=== PATIENT | female | born 1970 | race Caucasian/White ===

== ENCOUNTER → 2016-12-21 | Outpatient (CLI) | payer BC ==
--- NOTE | 2016-12-21 15:19 | US ---
EXAMINATION TYPE: US thyroid st tissue head/neck DATE OF EXAM: 12/21/2016 1:58 PM COMPARISON: Previous ultrasound thyroid 26 June 2015 CLINICAL HISTORY: E04.1 SINGLE THYROID NODULE. follow up exam, been on meds for over 20 years GLAND SIZE: Right Lobe: 3.8 x 1.2 x 2.0 cm Overall Parenchyma: heterogenous Left Lobe: 4.0 x 1.0 x 1.6 cm Overall Parenchyma: heterogeneous Isthmus Thickness: 0.3 cm NODULES RIGHT: 2 nodules are seen again on the right which are essentially stable accounting for differences in technique. LEFT: # of nodules measured on left: 0 ISTHMUS: # of nodules measured in the isthmus: 0 TECHNOLOGIST IMPRESSION: Bilateral neck scanned, no abnormal lymphadenopathy noted. The gland is markedly heterogeneous as on previous exam. IMPRESSION: There may be underlying thyroiditis, multinodular goiter essentially stable compared to prior exam
--- NOTE | 2016-12-21 15:21 | US ---
EXAMINATION TYPE: US groin extremity LT DATE OF EXAM: 12/21/2016 2:03 PM COMPARISON: NONE CLINICAL HISTORY: L02.91 CUTANEOUS ABSCESS. Palpable area in upper inner thigh near pant line was fel t by patient. Doctor had put her on antibiotics and size decreased. Patient can still feel it now. No skin changes, no wound at site. Small benign-appearing lymph node is present at the site of patient's palpable abnormality, grayscale , color Doppler imaging performed. TECHNOLOGIST IMPRESSION: Scanned area of palpable and a 0.9cm ovoid superficial lesion noted with pe ripheral blood flow seen, possible lymph node versus other etiology IMPRESSION: Benign ultrasound, no suspicious mass or abnormal fluid collection.
== END | disposition home or self-care (01) ==
LOC: RADUSWWP 13:33
PROVIDERS: ATTEND Family Medicine
DX: E04.2 Nontoxic multinodular goiter (principal); L02.214 Cutaneous abscess of groin
CPT/HCPCS: 76536

== ENCOUNTER → 2017-02-12 | Outpatient (CLI) | payer BC ==
--- NOTE | 2017-02-12 11:45 | MM ---
Reason for exam: follow-up at short interval from prior study. Last mammogram was performed 7 months ago. History: Patient has history of high-risk lesion on a previous biopsy at age 40. Family history of breast cancer in 2 maternal aunts. Cancelled Right US Needle Biopsy of the right breast, February 27, 2010. Benign excisional biopsy of the right breast, 2009. Excisional biopsy of the right breast, 2002. Excisional biopsy of the left breast, 2001. Taking progesterone for 10 months beginning at age 45. Physical Findings: Nurse did not find any significant physical abnormalities on exam. MG 3D Diag Mammo W/Cad TRINI Bilateral CC and MLO view(s) were taken. Prior study comparison: July 07, 2016, left breast MG 3d diag mammo w/cad LT. December 24, 2015, bilateral MG 3d screening mammo w/cad. There are scattered fibroglandular densities. Finding: There are two 10 mm equal density (isodense), oval masses in both breasts. Previous mammotome biopsy in the right and left breast. There is a chronic nodularity bilaterally. Increase in size since July 07, 2016 and December 24, 2015. These results were verbally communicated with the patient and result sheet given to the patient on 02/12/17. ASSESSMENT: Incomplete: need additional imaging evaluation, BI-RAD 0 RECOMMENDATION: Ultrasound of the left breast. (upper inner quadrant)
--- NOTE | 2017-02-12 11:46 | USB ---
Reason for exam: additional evaluation requested from abnormal screening. History: Patient has history of high-risk lesion on a previous biopsy at age 40. Family history of breast cancer in 2 maternal aunts. Cancelled Right US Needle Biopsy of the right breast, February 27, 2010. Benign excisional biopsy of the right breast, 2009. Excisional biopsy of the right breast, 2002. Excisional biopsy of the left breast, 2001. Taking progesterone for 10 months beginning at age 45. US Breast Limited LT Left breast ultrasound demonstrates a 5 x 4 x 7mm oval, mixed, hypoechoic lesion at 10 o'clock, a 10 x 5 x 9mm oval, mixed, hypoechoic lesion at 10 o'clock and a 9 x 7 x 8mm oval, hypoechoic lesion at 11 o'clock, previously biopsied. These results were verbally communicated with the patient and result sheet given to the patient on 02/12/17. ASSESSMENT: Probably benign, BI-RAD 3 RECOMMENDATION: Ultrasound of the left breast in 6 months.
== END ==
LOC: RADMAMWWP 08:21
PROVIDERS: ATTEND Obstetrics & Gynecology
DX: N64.4 Mastodynia (principal); R92.8 Other abnormal and inconclusive findings on diagnostic imaging of breast
CPT/HCPCS: 76642; G0204; G0279

== ENCOUNTER → 2017-08-17 | Outpatient (CLI) | payer BC ==
--- NOTE | 2017-08-18 08:07 | USB ---
Reason for exam: follow-up at short interval from prior study. History: Patient has history of high-risk lesion on a previous biopsy at age 40. Family history of breast cancer in 2 maternal aunts. Cancelled Right US Needle Biopsy of the right breast, February 27, 2010. Benign excisional biopsy of the right breast, 2009. Excisional biopsy of the right breast, 2002. Excisional biopsy of the left breast, 2001. Taking progesterone for 10 months beginning at age 45. Physical Findings: Nurse did not find any significant physical abnormalities on exam. US Breast Limited BILAT Left breast ultrasound includes all four quadrants, the retroareolar region and axilla. Finding demonstrates a 0.6 x 0.4 x 0.6cm oval, solid, hypoechoic lesion at 10 o'clock versus 7 x 4 x 5mm, approximately stable, a 1.3 x 0.7 x 1.2cm oval, solid, hypoechoic lesion at 10 o'clock versus 1.2 x 0.5 x 0.9cm, likely benign and a 0.9 x 0.6 x 0.9cm oval, hypoechoic lesion at 11 o'clock, clip seen, minimally larger, another 6 month follow up recommended. Right breast ultrasound demonstrates a 0.5 x 0.4 x 0.6cm oval, solid, hypoechoic lesion at 9 o'clock versus 2014 it measured 7 x 7 x 6 mm, smaller now, compatible with a benign etiology. These results were verbally communicated with the patient and result sheet given to the patient on 08/17/17. ASSESSMENT: Probably benign, BI-RAD 3 RECOMMENDATION: Follow-up diagnostic mammogram of both breasts in 6 months. Ultrasound of the left breast in 6 months. Back on schedule for annual exam. Left ultrasound for the 10:00 circumscribed mass that is minimally larger.
== END | disposition home or self-care (01) ==
LOC: RADUSWWP 08:56
PROVIDERS: ATTEND Obstetrics & Gynecology
DX: R92.8 Other abnormal and inconclusive findings on diagnostic imaging of breast (principal)

== ENCOUNTER → 2017-12-23 | Outpatient (CLI) | payer BC ==
--- NOTE | 2017-12-23 08:35 | US ---
EXAMINATION TYPE: US thyroid st tissue head/neck DATE OF EXAM: 12/23/2017 COMPARISON: 12/21/2016 CLINICAL HISTORY: E04.1 Thyroid Nodule. GLAND SIZE: Right Lobe: 3.6x1.6x1.2 cm Overall Parenchyma: heterogenous Left Lobe: 3.9x1.6x1.1 cm Overall Parenchyma: heterogeneous Isthmus Thickness: 0.4 cm NODULES RIGHT: # of nodules measured on right: 2 1. 0.9 X 0.6 x 0.6 cm echogenic mixed nodule at the lower pole with well-defined margins. This nod ule is wider than tall and shows intranodular vascularity. Prior size: 1.1 x 0.7 x 0.8 cm 2. 1.1 X 0.8 x 0.9 cm echogenic mixed nodule at the mid pole with well-defined margins. This nodule is wider than tall and shows intranodular vascularity. Prior size: 1.4 x 0.7 x 0.9 cm LEFT: # of nodules measured on left: 0 ISTHMUS: # of nodules measured in the isthmus: 0 Bilateral neck scanned, no evidence of lymphadenopathy. IMPRESSION: 1. Slightly smaller right lobe thyroid nodules compared to previous study
== END | disposition home or self-care (01) ==
LOC: RADUSWWP 08:04
PROVIDERS: ATTEND Family Medicine
DX: E04.2 Nontoxic multinodular goiter (principal)
CPT/HCPCS: 76536

== ENCOUNTER → 2018-02-16 | Outpatient (CLI) | payer BC ==
--- NOTE | 2018-02-16 11:34 | MM ---
Reason for exam: additional evaluation requested from prior study. Last mammogram was performed 1 year ago. History: Patient has history of high-risk lesion on a previous biopsy at age 40. Family history of breast cancer in 2 maternal aunts. Cancelled Right US Needle Biopsy of the right breast, February 27, 2010. Benign excisional biopsy of the right breast, 2009. Excisional biopsy of the right breast, 2002. Excisional biopsy of the left breast, 2001. Taking progesterone for 10 months beginning at age 45. Physical Findings: Nurse Summary: 1.5cm nodule in the right breast at 2 o'clock (nurse mj). MG 3D Diag Mammo W/Cad TRINI Bilateral CC and MLO view(s) were taken. Prior study comparison: February 12, 2017, bilateral MG 3d diag mammo w/cad TRINI. July 07, 2016, left breast MG 3d diag mammo w/cad LT. The breast tissue is heterogeneously dense. This may lower the sensitivity of mammography. Finding #1: There are benign appearing round, oval, circumscribed masses waxing and waning over multiple priors. Finding #2: There are typically benign dystrophic calcifications in the right breast. These results were verbally communicated with the patient and result sheet given to the patient on 02/16/18. ASSESSMENT: Benign, BI-RAD 2 RECOMMENDATION: Routine screening mammogram of both breasts in 1 year.
--- NOTE | 2018-02-16 11:45 | USB ---
Reason for exam: additional evaluation requested from prior study. History: Patient has history of high-risk lesion on a previous biopsy at age 40. Family history of breast cancer in 2 maternal aunts. Cancelled Right US Needle Biopsy of the right breast, February 27, 2010. Benign excisional biopsy of the right breast, 2009. Excisional biopsy of the right breast, 2002. Excisional biopsy of the left breast, 2001. Taking progesterone for 10 months beginning at age 45. US Breast BILAT Right limited breast ultrasound including focal area of concern, retroareolar and axilla demonstrates a 1.0 x 1.1 x 1.2cm irregular, solid, hypoechoic lesion at 1 o'clock, relates to a dystrophic benign calcification. Left complete breast ultrasound includes all four quadrants, the retroareolar region and axilla. Finding demonstrates a 0.7 x 0.5 x 0.3cm oval, solid, hypoechoic, new lesion at 3 o'clock, a 0.6 x 0.7 x 0.3cm solid, hypoechoic, new lesion at 9 o'clock, a 0.6 x 0.5 x 0.3cm oval, solid, hypoechoic lesion at 10 o'clock versus 0.7 x 0.4 x 0.5cm, a 0.6 x 0.5 x 0.4cm solid, hypoechoic lesion at 11 o'clock versus 1.2 x 0.5 x 0.9cm and a 0.9 x 0.9 x 0.6cm oval, solid, hypoechoic lesion at 11 o'clock with clip, previously biopsied. These results were verbally communicated with the patient and result sheet given to the patient on 02/16/18. ASSESSMENT: Probably benign, BI-RAD 3 RECOMMENDATION: Ultrasound of the left breast in 6 months.
== END | disposition home or self-care (01) ==
LOC: RADMAMWWP 08:13
PROVIDERS: ATTEND Family Medicine
DX: R92.8 Other abnormal and inconclusive findings on diagnostic imaging of breast (principal)
CPT/HCPCS: 77062; 77066

== ENCOUNTER 2018-06-25 09:28 | Observation (INO) | payer BC ==
[2018-06-25 09:34] VITALS: RESP 18; TEMP 98.3
[2018-06-25] MEDS ORDERED: ASPIRIN 81 MG PO STA (09:54)
[2018-06-25] MEDS ORDERED: NITROGLYCERIN OINT 1 INCH/GM PACKET TOPICAL STA (09:54)
--- NOTE | 2018-06-25 09:59 | ED ---
General Adult HPI - General Chief complaint: Dizziness Stated complaint: LEFT SHOULDER PAIN, NAUSEA, DIZZY Time Seen by Provider: 06/25/18 09:41 Source: patient, RN notes reviewed Mode of arrival: wheelchair Limitations: no limitations - History of Present Illness Initial comments: Patient is a pleasant 47-year-old female presenting to the emergency department for not feeling well. Onset of symptoms was a couple of hours ago. Patient was at rest. Patient has an ache type discomfort of her left shoulder. Patient does feel lightheaded and nauseated. All symptoms are mild. Patient does feel fatigued. No history of similar symptoms previously. Patient admits upon questioning that there may be some mild ache in her left chest as well. No pain with motion of her arm. No injury. No dyspnea. No vomiting. No diaphoresis. - Related Data Home Medications Medication Instructions Recorded Confirmed ALPRAZolam [Xanax] 0.25 mg PO HS PRN 10/22/14 05/19/15 Advair(Unknown Dose) 1 puff INHALATION DIRECTED PRN 10/22/14 05/19/15 Levothyroxine Sodium [Synthroid] 75 mcg PO DAILY 10/22/14 05/19/15 Levothyroxine Sodium [Synthroid] 200 mcg PO DAILY 10/22/14 05/19/15 Max-Air Inhaler 1 puff INHALATION DIRECTED PRN 10/22/14 05/19/15 Omeprazole [PriLOSEC] 20 mg PO AC-BRKFST 05/19/15 05/19/15 Previous Rx's Medication Instructions Recorded Acetaminophen-Codeine 300-30mg 1 each PO Q6H PRN #20 tablet 05/19/15 [Tylenol #3] Ibuprofen [Motrin] 800 mg PO Q8HR PRN #30 tab 05/19/15 Allergies Allergy/AdvReac Type Severity Reaction Status Date / Time Iodinated Contrast- Oral and AdvReac Severe Anaphylaxis Verified 06/25/18 09:30 IV Dye [Iodinated Contrast Media - IV Dye] cephalexin monohydrate AdvReac Unknown CAUSED Verified 06/25/18 09:30 [From Keflex] "HOLES" ON HER TONGUE latex AdvReac Unknown Swelling Verified 06/25/18 09:30 nifedipine [From Procardia] AdvReac Unknown Rash/Hives Verified 06/25/18 09:30 Penicillins AdvReac Unknown Rash/Hives Verified 06/25/18 09:30 Review of Systems ROS Statement: Those systems with pertinent positive or pertinent negative responses have been documented in the HPI. ROS Other: All systems not noted in ROS Statement are negative. Constitutional: Denies: fever Eyes: Denies: eye pain ENT: Denies: ear pain Respiratory: Denies: cough, dyspnea Cardiovascular: Reports: chest pain Endocrine: Reports: fatigue Gastrointestinal: Reports: nausea. Denies: abdominal pain, vomiting Genitourinary: Denies: dysuria Musculoskeletal: Denies: back pain Skin: Denies: rash Neurological: Denies: weakness Past Medical History Past Medical History: Asthma, Thyroid Disorder Additional Past Medical History / Comment(s): STATES CHECKING FOR COLITIS. History of Any Multi-Drug Resistant Organisms: None Reported Past Surgical History: Appendectomy, Bowel Resection, Breast Surgery, Cholecystectomy, Hysterectomy Additional Past Surgical History / Comment(s): BREAST CYSTS. Past Anesthesia/Blood Transfusion Reactions: Postoperative Nausea & Vomiting ( PONV) Additional Past Anesthesia/Blood Transfusion Reaction / Comment(s): PT ADOPTED. Past Psychological History: No Psychological Hx Reported Smoking Status: Former smoker Past Alcohol Use History: Occasional Past Drug Use History: None Reported - Past Family History Father Additional Family Medical History / Comment(s): PT ADOPTED BUT STATES UNCLE HAD COLON CA AND AUNTS WITH BREAST CA. General Exam Limitations: no limitations General appearance: alert, in no apparent distress Head exam: Present: atraumatic Eye exam: Present: normal appearance, PERRL ENT exam: Present: normal oropharynx Neck exam: Present: normal inspection Respiratory exam: Present: normal lung sounds bilaterally. Absent: chest wall tenderness Cardiovascular Exam: Present: regular rate, normal rhythm, normal heart sounds Expanded Peripheral pulses: 2+: Radial (R), Radial (L), Dorsalis Pedis (R), Dorsalis Pedis (L) GI/Abdominal exam: Present: soft. Absent: tenderness Extremities exam: Present: normal inspection. Absent: pedal edema, calf tenderness Back exam: Present: normal inspection. Absent: tenderness Neurological exam: Present: alert Psychiatric exam: Present: normal affect, normal mood Skin exam: Present: normal color Course Vital Signs 06/25/18 06/25/18 09:30 10:41 Temperature 98.3 F Pulse Rate 86 105 H Respiratory 18 18 Rate Blood Pressure 119/81 116/71 O2 Sat by Pulse 97 99 Oximetry EKG Findings - EKG Comments: EKG Findings:: Normal sinus rhythm 77. WA 1:30. QRS 102. QT 374. QTC 423. Normal axis. Normal QRS. No acute ST change. Medical Decision Making - Medical Decision Making Patient reevaluated and resting comfortably in bed. Symptoms have improved however not completely resolved. Patient updated on results and plan. Case was discussed in detail with Dr. Anderson, covering for Dr. morrissey, who admits for Dr. Sparks. - Lab Data Result diagrams: 06/25/18 10:00 06/25/18 10:00 Lab Results 06/25/18 06/25/18 06/25/18 Range/Units 10:00 10:00 10:00 WBC 7.5 (3.8-10.6) k/uL RBC 4.12 (3.80-5.40) m/uL Hgb 12.1 (11.4-16.0) gm/dL Hct 37.0 (34.0-46.0) % MCV 89.6 (80.0-100.0) fL MCH 29.4 (25.0-35.0) pg MCHC 32.8 (31.0-37.0) g/dL RDW 13.6 (11.5-15.5) % Plt Count 317 (150-450) k/uL Neutrophils % 58 % Lymphocytes % 28 % Monocytes % 6 % Eosinophils % 6 % Basophils % 1 % Neutrophils # 4.4 (1.3-7.7) k/uL Lymphocytes # 2.1 (1.0-4.8) k/uL Monocytes # 0.5 (0-1.0) k/uL Eosinophils # 0.4 (0-0.7) k/uL Basophils # 0.1 (0-0.2) k/uL PT (9.0-12.0) sec INR (<1.2) APTT (22.0-30.0) sec D-Dimer (<0.60) mg/L FEU Sodium 140 (137-145) mmol/L Potassium 4.9 (3.5-5.1) mmol/L Chloride 107 (98-107) mmol/L Carbon Dioxide 22 (22-30) mmol/L Anion Gap 11 mmol/L BUN 11 (7-17) mg/dL Creatinine 0.64 (0.52-1.04) mg/dL Est GFR (CKD-EPI)AfAm >90 (>60 ml/min/1.73 sqM) Est GFR (CKD-EPI)NonAf >90 (>60 ml/min/1.73 sqM) Glucose 134 H (74-99) mg/dL Calcium 9.5 (8.4-10.2) mg/dL Magnesium 1.6 (1.6-2.3) mg/dL Total Bilirubin 0.3 (0.2-1.3) mg/dL AST 27 (14-36) U/L ALT 39 (9-52) U/L Alkaline Phosphatase 66 (38-126) U/L Total Creatine Kinase 66 (30-135) U/L CK-MB (CK-2) 0.5 (0.0-2.4) ng/mL CK-MB (CK-2) Rel Index 0.8 Troponin I <0.012 (0.000-0.034) ng/mL Total Protein 7.0 (6.3-8.2) g/dL Albumin 4.0 (3.5-5.0) g/dL 06/25/18 Range/Units 10:00 WBC (3.8-10.6) k/uL RBC (3.80-5.40) m/uL Hgb (11.4-16.0) gm/dL Hct (34.0-46.0) % MCV (80.0-100.0) fL MCH (25.0-35.0) pg MCHC (31.0-37.0) g/dL RDW (11.5-15.5) % Plt Count (150-450) k/uL Neutrophils % % Lymphocytes % % Monocytes % % Eosinophils % % Basophils % % Neutrophils # (1.3-7.7) k/uL Lymphocytes # (1.0-4.8) k/uL Monocytes # (0-1.0) k/uL Eosinophils # (0-0.7) k/uL Basophils # (0-0.2) k/uL PT 9.8 (9.0-12.0) sec INR 1.0 (<1.2) APTT 24.4 (22.0-30.0) sec D-Dimer 0.29 (<0.60) mg/L FEU Sodium (137-145) mmol/L Potassium (3.5-5.1) mmol/L Chloride (98-107) mmol/L Carbon Dioxide (22-30) mmol/L Anion Gap mmol/L BUN (7-17) mg/dL Creatinine (0.52-1.04) mg/dL Est GFR (CKD-EPI)AfAm (>60 ml/min/1.73 sqM) Est GFR (CKD-EPI)NonAf (>60 ml/min/1.73 sqM) Glucose (74-99) mg/dL Calcium (8.4-10.2) mg/dL Magnesium (1.6-2.3) mg/dL Total Bilirubin (0.2-1.3) mg/dL AST (14-36) U/L ALT (9-52) U/L Alkaline Phosphatase (38-126) U/L Total Creatine Kinase (30-135) U/L CK-MB (CK-2) (0.0-2.4) ng/mL CK-MB (CK-2) Rel Index Troponin I (0.000-0.034) ng/mL Total Protein (6.3-8.2) g/dL Albumin (3.5-5.0) g/dL - Radiology Data Radiology results: image reviewed (Chest x-ray shows no acute process) Disposition Clinical Impression: Chest pain Disposition: ADMITTED IP TO THIS HOSP Is patient prescribed a controlled substance at d/c from ED?: No Referrals: Tyler Sparks MD [Primary Care Provider] - 1-2 days Decision Time: 11:27
[2018-06-25 10:12] LABS: Basophils # (A) 0.1 k/uL (0-0.2); Basophils % (A) 1 %; Eosinophils # (A) 0.4 k/uL (0-0.7); Eosinophils % (A) 6 %; HGB 12.1 gm/dL (11.4-16.0); Lymphocytes # (A) 2.1 k/uL (1.0-4.8); Lymphocytes % (A) 28 %; MCH 29.4 pg (25.0-35.0); MCHC 32.8 g/dL (31.0-37.0); MCV 89.6 fL (80.0-100.0); Mean Platelet Volume 6.9; Monocytes # (A) 0.5 k/uL (0-1.0); Monocytes % (A) 6 %; Neutrophils # (A) 4.4 k/uL (1.3-7.7); Neutrophils % (A) 58 %; Platelet Count 317 k/uL (150-450); RBC 4.12 m/uL (3.80-5.40); RDW 13.6 % (11.5-15.5); WBC 7.5 k/uL (3.8-10.6)
[2018-06-25 10:25] LABS: ALT 39 U/L (9-52); AST 27 U/L (14-36); Alkaline Phosphatase 66 U/L (38-126); Anion Gap 11 mmol/L; Blood Urea Nitrogen 11 mg/dL (7-17); Calcium 9.5 mg/dL (8.4-10.2); Carbon Dioxide 22 mmol/L (22-30); Chloride 107 mmol/L (98-107); Glucose 134 mg/dL (74-99); Magnesium 1.6 mg/dL (1.6-2.3); Potassium 4.9 mmol/L (3.5-5.1); Sodium 140 mmol/L (137-145); Total Bilirubin 0.3 mg/dL (0.2-1.3)
[2018-06-25 10:28] LABS: D-Dimer 0.29 mg/L FEU (<0.60); Partial Thromboplastin Time 24.4 sec (22.0-30.0); Prothrombin Time 9.8 sec (9.0-12.0)
[2018-06-25 10:33] LABS: Creatine Kinase 66 U/L (30-135)
--- NOTE | 2018-06-25 10:34 | XR ---
EXAMINATION TYPE: XR chest 2V DATE OF EXAM: 06/25/2018 HISTORY: Chest Pain. REFERENCE: Previous study dated 05/19/2015. FINDINGS: The lungs are clear. Pleural space are clear. The heart is not enlarged. IMPRESSION: NORMAL CHEST.
[2018-06-25 10:42] VITALS: BP 116/71; PULSE 105
[2018-06-25 10:46] LABS: Creatine Kinase MB 0.5 ng/mL (0.0-2.4); Troponin I <0.012 ng/mL (0.000-0.034)
[2018-06-25] MEDS ORDERED: NITROGLYCERIN SL TABS 0.4 MG TAB SUBLINGUAL PRN (11:28)
[2018-06-25 12:46] VITALS: BMI 30.9
[2018-06-25] MEDS ORDERED: ALPRAZolam 0.25 MG TAB PO PRN (12:46)
[2018-06-25] MEDS ORDERED: ACETAMINOPHEN TAB 325 MG TAB PO PRN (12:46)
--- NOTE | 2018-06-25 12:54 | P.HPIM ---
History of Present Illness H&P Date: 06/25/18 Chief Complaint: Lightheadedness dizziness left shoulder pain chest pressure The patient is a 47-year-old obese female with a past focal history of type 2 diabetes on metformin who presents to the ER via private vehicle with complaints of left shoulder pain, That suddenly began this morning, the patient reports that her and her family in the process of moving and that she is currently under increased stress. The patient also reported mild to moderate chest pressure above the left breast with radiation into the left shoulder, with associated lightheadedness and nausea and diaphoresis. She denies any feelings of palpitations, denies any lower extremity swelling, or shortness of breath denies being a smoker, denies any family history of coronary disease. The patient does report being sort of anxious and stressed out, denies any depressive symptomatology. in the ER the patient was noted to be normal sinus rhythm EKG was sinus mechanism without any suggestion of any acute ischemia, troponins were negative 1. She was given aspirin, nitroglycerin and recommended for admission to rule out ACS Review of Systems Pertinent positive as per HPI, all other review of systems are otherwise negative Past Medical History Past Medical History: Asthma, Thyroid Disorder Additional Past Medical History / Comment(s): STATES CHECKING FOR COLITIS. History of Any Multi-Drug Resistant Organisms: None Reported Past Surgical History: Appendectomy, Bowel Resection, Breast Surgery, Cholecystectomy, Hysterectomy Additional Past Surgical History / Comment(s): BREAST CYSTS. Past Anesthesia/Blood Transfusion Reactions: Postoperative Nausea & Vomiting ( PONV) Additional Past Anesthesia/Blood Transfusion Reaction / Comment(s): PT ADOPTED. Past Psychological History: No Psychological Hx Reported Smoking Status: Former smoker Past Alcohol Use History: Occasional Past Drug Use History: None Reported - Past Family History Father Additional Family Medical History / Comment(s): PT ADOPTED BUT STATES UNCLE HAD COLON CA AND AUNTS WITH BREAST CA. Medications and Allergies Home Medications Medication Instructions Recorded Confirmed Type Aspirin [Adult Low Dose Aspirin EC] 81 mg PO DAILY 06/25/18 06/25/18 History Ibuprofen 600 mg PO Q6H PRN 06/25/18 06/25/18 History Thyroid,Pork [Borup Thyroid] 30 mg PO DAILY 06/25/18 06/25/18 History Thyroid,Pork [Borup Thyroid] 240 mg PO DAILY 06/25/18 06/25/18 History metFORMIN HCL [Glucophage] 500 mg PO QID 06/25/18 06/25/18 History Allergies Allergy/AdvReac Type Severity Reaction Status Date / Time Iodinated Contrast- Oral and AdvReac Severe Anaphylaxis Verified 06/25/18 12:05 IV Dye [Iodinated Contrast Media - IV Dye] cephalexin monohydrate AdvReac Unknown CAUSED Verified 06/25/18 12:05 [From Keflex] "HOLES" ON HER TONGUE latex AdvReac Unknown Swelling Verified 06/25/18 12:05 nifedipine [From Procardia] AdvReac Unknown Rash/Hives Verified 06/25/18 12:05 Penicillins AdvReac Unknown Rash/Hives Verified 06/25/18 12:05 Physical Exam Vitals: Vital Signs Temp Pulse Resp BP Pulse Ox 06/25/18 10:41 105 H 18 116/71 99 06/25/18 09:30 98.3 F 86 18 119/81 97 Intake and Output 06/24/18 06/25/18 06/25/18 22:59 06:59 14:59 Other: Weight 81.647 kg Constitutional: No acute distress, conversant, pleasant Eyes: Anicteric sclerae, moist conjunctiva, no lid-lag, PERRLA ENMT: NC/AT,Oropharynx clear, no erythema, exudates Neck:Supple, FROM, no masses, or JVD, No carotid bruits; No thyromegaly Lungs: Clear to auscultation, Clear to percussion, Normal respiratory effort, no accessory muscle use Cardiovascular: Heart regular in rate and rhythm, No murmurs, gallops, or rubs no peripheral edema Abdominal: Soft Nontender, nom distended, no guarding, no rebound or rigidity, Normoactive bowel sounds No hepatomegaly, No splenomegaly, No palpable mass No abdominal wall hernia noted Skin: Normal temperature, tone, texture, turgor, No induration No subcutaneous nodules, No rash, lesions, No ulcers Extremities:No digital cyanosis No clubbing, Pedal pulses intact and symmetrical Radial pulses intact and symmetrical Normal gait and station, No calf tenderness Psychiatric: Alert and oriented to person, place and time, Appropriate affect Intact judgement Neuro: Muscles Strength 5/5 in all 4 extremities, Sensation to light touch grossly present throughout, Cranial nerves II-XII grossly intact. No focal sensory deficits Results CBC & Chem 7: 06/25/18 10:00 09/15/18 10:00 Labs: Abnormal Lab Results - Last 24 Hours (Table) 06/25/18 Range/Units 10:00 Glucose 134 H (74-99) mg/dL Assessment and Plan (1) Atypical chest pain Current Visit: Yes Status: Acute Code(s): R07.89 - OTHER CHEST PAIN SNOMED Code(s): 229133224 (2) Type 2 diabetes mellitus Current Visit: Yes Status: Acute Code(s): E11.9 - TYPE 2 DIABETES MELLITUS WITHOUT COMPLICATIONS SNOMED Code(s): 59394815 (3) Hypothyroidism Current Visit: Yes Status: Acute Code(s): E03.9 - HYPOTHYROIDISM, UNSPECIFIED SNOMED Code(s): 81712042 (4) Asthma Current Visit: Yes Status: Acute Code(s): J45.909 - UNSPECIFIED ASTHMA, UNCOMPLICATED SNOMED Code(s): 429480769 Plan: Patient is placed on observation anticipated less than 2 midnight stay with atypical chest pain rule out ACS, we'll continue cycle troponins, initial set of troponins and EKG negative for any suggestion of acute ischemia and continue routine chest pain orders , patient initiated on antiplatelet therapy with aspirin. Currently she is hemodynamically stable. Cardiology is been consulted for further recommendations, patient seems have a component of anxiety we'll start Xanax when necessary. Monitor Accuckecs qachs with correctional scale insulin. Continue to follow clinical course.
[2018-06-25] MEDS ORDERED: INSULIN ASPART 100 UNIT/ML 1 ML 10 ML VIAL SQ SCH (17:30)
[2018-06-25] MEDS ORDERED: NITROGLYCERIN OINT 1 INCH/GM PACKET TOPICAL SCH (18:00)
[2018-06-26] MEDS ORDERED: ASPIRIN 325 MG TAB PO SCH (09:00)
[2018-06-27 11:04] LABS: Hemoglobin A1C 6.1 % (4.0-6.0)
== END 2018-06-25 15:05 | disposition left against medical advice (07) ==
LOC: EC 09:28 → 6SEL 11:29
PROVIDERS: ADMIT Family Medicine; ATTEND Family Medicine
DX: R07.89 Other chest pain (principal); M25.512 Pain in left shoulder; R42 Dizziness and giddiness; R61 Generalized hyperhidrosis; R11.0 Nausea; F43.9 Reaction to severe stress, unspecified; R53.83 Other fatigue; E11.9 Type 2 diabetes mellitus without complications; E03.9 Hypothyroidism, unspecified; J45.909 Unspecified asthma, uncomplicated; E66.9 Obesity, unspecified; Z68.30 Body mass index [BMI] 30.0-30.9, adult; Z79.890 Hormone replacement therapy; Z79.84 Long term (current) use of oral hypoglycemic drugs; Z79.82 Long term (current) use of aspirin; Z79.51 Long term (current) use of inhaled steroids; Z79.899 Other long term (current) drug therapy; Z88.0 Allergy status to penicillin; Z88.8 Allergy status to other drugs, medicaments and biological substances; Z88.1 Allergy status to other antibiotic agents; Z91.041 Radiographic dye allergy status; Z91.040 Latex allergy status; Z90.49 Acquired absence of other specified parts of digestive tract; Z90.710 Acquired absence of both cervix and uterus; Z90.89 Acquired absence of other organs; Z87.891 Personal history of nicotine dependence; Z80.3 Family history of malignant neoplasm of breast; Z80.0 Family history of malignant neoplasm of digestive organs
CPT/HCPCS: 99285 ×2; 36415; 93005; 85379; 80053; 82550; 82553; 83735; 84484; 85025; 85610; 85730; 83036; 71046; G0378

== ENCOUNTER → 2018-09-20 | Outpatient (CLI) | payer BC ==
--- NOTE | 2018-09-20 10:56 | MM ---
Reason for exam: follow-up at short interval from prior study. Last mammogram was performed 7 months ago. History: Patient has history of high-risk lesion on a previous biopsy at age 40. Family history of breast cancer in 2 maternal aunts. Cancelled Right US Needle Biopsy of the right breast, February 27, 2010. Benign excisional biopsy of the right breast, 2009. Excisional biopsy of the right breast, 2002. Excisional biopsy of the left breast, 2001. Taking estrogen. Taking progesterone for 10 months beginning at age 45. Physical Findings: Nurse Summary: 1 x 1cm nodule in the right breast at 10 o'clock, a 1.1 x 1.5cm nodule in the right breast at 1 o'clock and a 0.5 x 1cm nodule in the left breast at 12 o'clock (nurse ts). MG 3D Diag Mammo W/Cad TRINI Bilateral CC and MLO view(s) were taken. Prior study comparison: February 16, 2018, bilateral MG 3d diag mammo w/cad TRINI. August 17, 2017, bilateral US breast limited BILAT. February 12, 2017, bilateral MG 3d diag mammo w/cad TRINI. The breast tissue is heterogeneously dense. This may lower the sensitivity of mammography. There is chronic nodularity in the left breast, one posterior inner increased in size. These results were verbally communicated with the patient and result sheet given to the patient on 09/20/18. ASSESSMENT: Incomplete: need additional imaging evaluation, BI-RAD 0 RECOMMENDATION: Ultrasound of both breasts. (bilateral palpables and left mammographic abnormality)
--- NOTE | 2018-09-20 11:01 | USB ---
Reason for exam: follow-up at short interval from prior study. History: Patient has history of high-risk lesion on a previous biopsy at age 40. Family history of breast cancer in 2 maternal aunts. Cancelled Right US Needle Biopsy of the right breast, February 27, 2010. Benign excisional biopsy of the right breast, 2009. Excisional biopsy of the right breast, 2002. Excisional biopsy of the left breast, 2001. Taking estrogen. Taking progesterone for 10 months beginning at age 45. US Breast BILAT Right complete breast ultrasound includes all four quadrants, the retroareolar region and axilla. Finding demonstrates a 7 x 8 x 9mm solid calcifications at 2 o'clock BB and a 6 x 4 x 6mm oval, hypoechoic lesion at 9 o'clock BB. Left complete breast ultrasound includes all four quadrants, the retroareolar region and axilla. Finding demonstrates a 5 x 3 x 3mm hypoechoic lesion at 2 o'clock, a 5 x 2 x 6mm hypoechoic lesion at 9 o'clock, a 15 x 6 x 15mm oval, hypoechoic, vascular lesion at 10 o'clock increased in size, a 7 x 3 x 4mm oval, hypoechoic lesion at 11 o'clock and a 9 x 6 x 7mm oval, hypoechoic lesion at 11 o'clock with clip. These results were verbally communicated with the patient and result sheet given to the patient on 09/20/18. ASSESSMENT: Suspicious, BI-RAD 4 RECOMMENDATION: Ultrasound core biopsy of the left breast. Called Dr. Sparks with mammographic findings and has scheduled an appointment for the patient for 09/26/18 at 10:[address] Agarwal. PRELIMINARY REPORT CALLED AND FAXED TO DR. AGARWAL ON 09/20/18.
== END | disposition home or self-care (01) ==
LOC: RADMAMWWP 08:55
PROVIDERS: ATTEND Family Medicine
DX: R92.8 Other abnormal and inconclusive findings on diagnostic imaging of breast (principal)
CPT/HCPCS: 77062; 77066

== ENCOUNTER 2018-12-25 11:47 | Emergency (ER) | payer BC ==
[2018-12-25 11:52] VITALS: RESP 18
--- NOTE | 2018-12-25 12:11 | ED ---
Extremity Problem HPI - General Chief complaint: Extremity Problem,Nontraumatic Stated complaint: Leg pain Time Seen by Provider: 12/25/18 11:56 Source: patient, RN notes reviewed Mode of arrival: ambulatory Limitations: no limitations - History of Present Illness Initial comments: 48-year-old female presents emergency Department with chief complaint of left leg pain, cramping. Patient states started while sitting at her desk this morning. Patient states she did have her leg and a stretching position. Patient states she noticed that she had a cramp so she tried to walk and off states that she ate some fruit with no relief of symptoms. Patient is concerned about possible DVT she had breast surgery on Wednesday. Patient has no history DVT denies any redness, swelling. She states it's very hard to reproduce his symptoms and her leg. Chest pain or shortness of breath. - Related Data Home Medications Medication Instructions Recorded Confirmed Aspirin [Adult Low Dose Aspirin EC] 81 mg PO DAILY 06/25/18 06/25/18 Ibuprofen 600 mg PO Q6H PRN 06/25/18 06/25/18 Thyroid,Pork [[place] Thyroid] 30 mg PO DAILY 06/25/18 06/25/18 Thyroid,Pork [[place] Thyroid] 240 mg PO DAILY 06/25/18 06/25/18 metFORMIN HCL [Glucophage] 500 mg PO QID 06/25/18 06/25/18 Allergies Allergy/AdvReac Type Severity Reaction Status Date / Time Iodinated Contrast- Oral and AdvReac Severe Anaphylaxis Verified 12/25/18 11:51 IV Dye [Iodinated Contrast Media - IV Dye] cephalexin monohydrate AdvReac Unknown CAUSED Verified 12/25/18 11:51 [From Keflex] "HOLES" ON HER TONGUE latex AdvReac Unknown Swelling Verified 12/25/18 11:51 nifedipine [From Procardia] AdvReac Unknown Rash/Hives Verified 12/25/18 11:51 Penicillins AdvReac Unknown Rash/Hives Verified 12/25/18 11:51 Review of Systems ROS Statement: Those systems with pertinent positive or pertinent negative responses have been documented in the HPI. ROS Other: All systems not noted in ROS Statement are negative. Past Medical History Past Medical History: Asthma, Thyroid Disorder Additional Past Medical History / Comment(s): STATES CHECKING FOR COLITIS. History of Any Multi-Drug Resistant Organisms: None Reported Past Surgical History: Appendectomy, Bowel Resection, Breast Surgery, Cholecystectomy, Hysterectomy Additional Past Surgical History / Comment(s): BREAST CYSTS. Past Anesthesia/Blood Transfusion Reactions: Postoperative Nausea & Vomiting (PONV) Additional Past Anesthesia/Blood Transfusion Reaction / Comment(s): PT ADOPTED. Past Psychological History: No Psychological Hx Reported Smoking Status: Former smoker Past Alcohol Use History: Occasional Past Drug Use History: None Reported - Past Family History Father Additional Family Medical History / Comment(s): PT ADOPTED BUT STATES UNCLE HAD COLON CA AND AUNTS WITH BREAST CA. General Exam Limitations: no limitations General appearance: alert, in no apparent distress Head exam: Present: atraumatic, normocephalic, normal inspection ENT exam: Present: normal exam, normal oropharynx, mucous membranes moist, TM's normal bilaterally Neck exam: Present: normal inspection, full ROM. Absent: tenderness, meningismus, lymphadenopathy Respiratory exam: Present: normal lung sounds bilaterally. Absent: respiratory distress, wheezes, rales, rhonchi, stridor Cardiovascular Exam: Present: regular rate, normal rhythm, normal heart sounds. Absent: systolic murmur, diastolic murmur, rubs, gallop, clicks Extremities exam: Present: other (Lower shunted pulses equal bilaterally posterior tibialis and dorsal pedis. There is no swelling no erythema no tenderness of the calf.) Skin exam: Present: warm, dry, intact, normal color. Absent: rash Course Vital Signs 12/25/18 11:49 Temperature 98 F Pulse Rate 90 Respiratory 18 Rate Blood Pressure 125/85 O2 Sat by Pulse 97 Oximetry Medical Decision Making - Medical Decision Making 48-year-old female presented for left leg pain concern for DVT. Ultrasound was obtained no acute DVT. This seems any more muscle cramps in nature. Patient will be discharged return parameters were discussed. Disposition Clinical Impression: Left leg pain Disposition: HOME SELF-CARE Condition: Stable Instructions (If sedation given, give patient instructions): Leg Pain (ED) Additional Instructions: Please return to the Emergency Department if symptoms worsen or any other concerns. Is patient prescribed a controlled substance at d/c from ED?: No Referrals: Tyler Sparks MD [Primary Care Provider] - 1-2 days Time of Disposition: 13:30
--- NOTE | 2018-12-25 13:24 | US ---
EXAMINATION TYPE: US venous doppler duplex LE LT DATE OF EXAM: 12/25/2018 12:51 PM COMPARISON: NONE CLINICAL HISTORY: Pain. recent breast surgery and now having calf pain on the left, no h/o dvt SIDE PERFORMED: Left TECHNIQUE: The lower extremity deep venous system is examined utilizing real time linear array sonog sara with graded compression, doppler sonography and color-flow sonography. VESSELS IMAGED: External Iliac Vein (EIV) Common Femoral Vein Deep Femoral Vein Greater Saphenous Vein * Femoral Vein Popliteal Vein Small Saphenous Vein * Proximal Calf Veins (* superficial vessels) Left Leg: Appears negative for DVT There is normal flow, compressibility, vascular waveforms. IMPRESSION: No evident deep venous arthrosis at or above the left knee, follow-up as indicated
[2018-12-25 21:03] VITALS: BP 127/78; PULSE 86; TEMP 98.2
== END 2018-12-25 14:05 | disposition home or self-care (01) ==
LOC: EC 11:47
DX: M79.605 Pain in left leg (principal); E07.9 Disorder of thyroid, unspecified; Z87.891 Personal history of nicotine dependence; Z79.82 Long term (current) use of aspirin; Z79.890 Hormone replacement therapy; Z79.84 Long term (current) use of oral hypoglycemic drugs; Z91.041 Radiographic dye allergy status; Z88.1 Allergy status to other antibiotic agents; Z91.040 Latex allergy status; Z88.8 Allergy status to other drugs, medicaments and biological substances; Z88.0 Allergy status to penicillin
CPT/HCPCS: 99283

== ENCOUNTER → 2019-03-22 | Outpatient (CLI) | payer BC ==
--- NOTE | 2019-03-22 16:30 | CT ---
EXAMINATION TYPE: CT abdomen pelvis wo con DATE OF EXAM: 03/22/2019 COMPARISON: Prior CT 04/06/2014 HISTORY: LLQ pain CT DLP: 903 mGycm Automated exposure control for dose reduction was used. TECHNIQUE: Helical acquisition of images from the lung bases through the pelvis. FINDINGS: LUNG BASES: No significant abnormality is appreciated. AORTA: No significant abnormality is appreciated. LIVER/GB: Patient is post cholecystectomy. No evident liver mass or dilated intrahepatic biliary duct PANCREAS: No significant abnormality is seen. SPLEEN: No significant abnormality is seen. ADRENALS: No significant abnormality is seen. KIDNEYS: No significant abnormality is seen. REPRODUCTIVE ORGANS: Uterus and right adnexal structures are not seen. There is an oval soft tissue density on axial image 114 measures approximately 3 cm which is indeterminate. There is intermediate proximity to the sigmoid colon at this level. Residual left ovary couldn't be present, correlate with surgical history, alternatively diverticular abscess without significant inflammatory change could b e present, consider contrast-enhanced exam URINARY BLADDER: No significant abnormality is seen. BOWEL: Patient is post cholecystectomy. FREE AIR: No Free Air is visible. ASCITES: None visible. PELVIC ADENOPATHY: None visualized. RETROPERITONEAL ADENOPATHY: No Retroperitoneal Adenopathy visible. OSSEOUS STRUCTURES: No significant abnormality is seen. IMPRESSION: LACK OF INTRAVENOUS CONTRAST COULD COMPROMISE SENSITIVITY. INDETERMINATE SOFT TISSUE DENSITY IN THE L EFT LOWER QUADRANT DESCRIBED, CONTRAST-ENHANCED EXAM MAY BE OF BENEFIT. FOLLOW-UP SUGGESTED. POSTO P CHANGES.
== END | disposition home or self-care (01) ==
LOC: RADCTMAIN 15:44
PROVIDERS: ATTEND Family Medicine
DX: R10.32 Left lower quadrant pain (principal)
CPT/HCPCS: 74176

== ENCOUNTER 2019-04-01 19:15 | Emergency (ER) | payer BC ==
[2019-04-01 19:24] VITALS: RESP 18; TEMP 98.2
[2019-04-01] MEDS ORDERED: CLOTRIMAZOLE 1% CREAM 15 GM TUBE TOPICAL STA (20:08)
--- NOTE | 2019-04-01 20:11 | ED ---
Female Urogenital HPI - General Chief complaint: Urogenital Stated complaint: painful urination Time Seen by Provider: 04/01/19 19:26 Source: patient Mode of arrival: ambulatory Limitations: no limitations - History of Present Illness Initial comments: 48-year-old female patient presents to the emergency department today with chief complaint of vulvovaginal irritation and swelling. Patient states that she is currently being treated for a yeast infection by her primary care physician. States that she was recently started on a new diabetic medication that does cause yeast infections. Patient states this started as irritation and itching. States that she did take a Diflucan 3 days ago when symptoms started states that over the last 3 days her symptoms have worsened. States she is now having dysuria and frequency of urination. States that the burning sensation is intense and worsens with urination. Denies any vaginal discharge. She denies any fever or chills. Denies any nausea or vomiting. Denies any flank or back pain. Patient denies any recent rash, shortness breath, chest pain, abdominal pain, diarrhea, constipation, back pain, numbness, tingling, dizziness, weakness, headache, visual changes, or any other complaints. - Related Data Home Medications Medication Instructions Recorded Confirmed Aspirin [Adult Low Dose Aspirin EC] 81 mg PO DAILY 06/25/18 06/25/18 Ibuprofen 600 mg PO Q6H PRN 06/25/18 06/25/18 Thyroid,Pork [[place] Thyroid] 30 mg PO DAILY 06/25/18 06/25/18 Thyroid,Pork [[place] Thyroid] 240 mg PO DAILY 06/25/18 06/25/18 metFORMIN HCL [Glucophage] 500 mg PO QID 06/25/18 06/25/18 Previous Rx's Medication Instructions Recorded Phenazopyridine HCl [Pyridium] 100 mg PO TID #9 tab 04/01/19 Allergies Allergy/AdvReac Type Severity Reaction Status Date / Time Iodinated Contrast- Oral and AdvReac Severe Anaphylaxis Verified 04/01/19 19:23 IV Dye [Iodinated Contrast Media - IV Dye] cephalexin monohydrate AdvReac Unknown CAUSED Verified 04/01/19 19:23 [From Keflex] "HOLES" ON HER TONGUE latex AdvReac Unknown Swelling Verified 04/01/19 19:23 nifedipine [From Procardia] AdvReac Unknown Rash/Hives Verified 04/01/19 19:23 Penicillins AdvReac Unknown Rash/Hives Verified 04/01/19 19:23 Review of Systems ROS Statement: Those systems with pertinent positive or pertinent negative responses have been documented in the HPI. ROS Other: All systems not noted in ROS Statement are negative. Past Medical History Past Medical History: Asthma, Diabetes Mellitus, Thyroid Disorder Additional Past Medical History / Comment(s): STATES CHECKING FOR COLITIS. STEGLARTO History of Any Multi-Drug Resistant Organisms: None Reported Past Surgical History: Appendectomy, Bowel Resection, Breast Surgery, Cholecystectomy, Hysterectomy Additional Past Surgical History / Comment(s): BREAST CYSTS. Past Anesthesia/Blood Transfusion Reactions: Postoperative Nausea & Vomiting (PONV) Additional Past Anesthesia/Blood Transfusion Reaction / Comment(s): PT ADOPTED. Past Psychological History: No Psychological Hx Reported Smoking Status: Former smoker Past Alcohol Use History: Occasional Past Drug Use History: None Reported - Past Family History Father Additional Family Medical History / Comment(s): PT ADOPTED BUT STATES UNCLE HAD COLON CA AND AUNTS WITH BREAST CA. General Exam Limitations: no limitations General appearance: alert, in no apparent distress, other (Physical well- developed, well-nourished adult female patient in no acute distress. Vital signs upon presentation To 98.2F, pulse 89, respirations 18, blood pressure 119/83, pulse ox 99% on room air.) Eye exam: Present: normal appearance, PERRL, EOMI. Absent: scleral icterus, conjunctival injection, periorbital swelling ENT exam: Present: normal exam, normal oropharynx, mucous membranes moist Respiratory exam: Present: normal lung sounds bilaterally. Absent: respiratory distress, wheezes, rales, rhonchi, stridor Cardiovascular Exam: Present: regular rate, normal rhythm, normal heart sounds. Absent: systolic murmur, diastolic murmur, rubs, gallop, clicks GI/Abdominal exam: Present: soft, normal bowel sounds. Absent: distended, tenderness, guarding, rebound, rigid External exam: Present: erythema, swelling. Absent: normal external exam, lesions Neurological exam: Present: alert, oriented X3, CN II-XII intact Psychiatric exam: Present: normal affect, normal mood Skin exam: Present: warm, dry, intact, normal color. Absent: rash Course Vital Signs 04/01/19 19:20 Temperature 98.2 F Pulse Rate 89 Respiratory 18 Rate Blood Pressure 119/83 O2 Sat by Pulse 99 Oximetry Medical Decision Making - Medical Decision Making 48-year-old female patient presents to the emergency department today for evaluation of vaginal irritation and swelling. Physical examination did reveal erythema and swelling of the labia minora and labia majora. No discharge noted. Urinalysis was obtained and showed 2+ glucose which is consistent of her use of oral diabetic medication. She is afebrile. No abdominal tenderness. Patient did take Diflucan today. We will add miconazole cream and Pyridium to her regimen. She is instructed to follow-up with her primary care physician for recheck in 1-2 days. Return parameters discussed in detail. She verbalizes understanding and agrees with this plan. - Lab Data Lab Results 04/01/19 Range/Units 19:35 Urine Color Yellow Urine Appearance Clear (Clear) Urine pH 5.0 (5.0-8.0) Ur Specific [place] 1.010 (1.001-1.035) Urine Protein Negative (Negative) Urine Glucose (UA) 2+ H (Negative) Urine Ketones Negative (Negative) Urine Blood Negative (Negative) Urine Nitrite Negative (Negative) Urine Bilirubin Negative (Negative) Urine Urobilinogen <2.0 (<2.0) mg/dL Ur Leukocyte Esterase Negative (Negative) Disposition Clinical Impression: Vulvovaginal candidiasis Disposition: HOME SELF-CARE Condition: Good Instructions (If sedation given, give patient instructions): Yeast Infection (ED) Additional Instructions: Use cream 3 times daily to the affected area. Take Pyridium 3 times a day as needed for burning sensation. Avoid sexual intercourse until all symptoms resolve. Follow-up with the primary care physician for recheck in 1-2 days. Return to the emergency department immediately for any new, worsening, or concerning symptoms. Prescriptions: Phenazopyridine HCl [Pyridium] 100 mg PO TID #9 tab Is patient prescribed a controlled substance at d/c from ED?: No Referrals: Tyler Sparks MD [Primary Care Provider] - 1-2 days Time of Disposition: 20:35
[2019-04-01 20:27] LABS: Color,Urine Yellow
[2019-04-01 20:28] LABS: Appearance,Urine Clear (Clear); Bilirubin,Urine Negative (Negative); Blood,Urine Negative (Negative); Glucose,Urine (UA) 2+ (Negative); Ketones,Urine Negative (Negative); Leukocyte Esterase,Urine Negative (Negative); Nitrite,Urine Negative (Negative); Protein,Urine Negative (Negative); Urobilinogen,Urine <2.0 mg/dL (<2.0)
[2019-04-01] MEDS ORDERED: PHENAZOPYRIDINE 200 MG TAB PO STA (20:34)
[2019-04-01 20:48] VITALS: BP 116/87; PULSE 69
== END 2019-04-01 20:46 | disposition home or self-care (01) ==
LOC: EC 19:15
DX: B37.3 Candidiasis of vulva and vagina (principal); E11.9 Type 2 diabetes mellitus without complications; E07.9 Disorder of thyroid, unspecified; Z87.891 Personal history of nicotine dependence; Z79.82 Long term (current) use of aspirin; Z79.84 Long term (current) use of oral hypoglycemic drugs; Z79.890 Hormone replacement therapy; Z91.041 Radiographic dye allergy status; Z88.1 Allergy status to other antibiotic agents; Z91.040 Latex allergy status; Z88.0 Allergy status to penicillin
CPT/HCPCS: 81003; 99283

== ENCOUNTER 2019-09-17 23:45 | Emergency (ER) | payer BC, OTHER ==
--- NOTE | 2019-09-17 23:58 | ED ---
Chest Pain HPI - General Chief Complaint: Chest Pain Stated Complaint: Chest Pain Time Seen by Provider: 09/17/19 23:58 Source: patient, family Mode of arrival: ambulatory Limitations: no limitations - History of Present Illness Initial Comments: Dileep workman is a 48-year-old female who presents the emergency department today for evaluation of epigastric abdominal pain, discomfort radiating from her epigastrium into her chest. Patient reports this began a couple hours prior to arrival has been persistent since arrival. Patient has a history of cholecystectomy and appendectomy in the past. She has no history of pancreatitis she is not a big drinker. She denies any cardiac history. - Related Data Home Medications Medication Instructions Recorded Confirmed Aspirin [Adult Low Dose Aspirin EC] 81 mg PO DAILY 06/25/18 06/25/18 Ibuprofen 600 mg PO Q6H PRN 06/25/18 06/25/18 Thyroid,Pork [[place] Thyroid] 30 mg PO DAILY 06/25/18 06/25/18 Thyroid,Pork [[place] Thyroid] 240 mg PO DAILY 06/25/18 06/25/18 metFORMIN HCL [Glucophage] 500 mg PO QID 06/25/18 06/25/18 Previous Rx's Medication Instructions Recorded Phenazopyridine HCl [Pyridium] 100 mg PO TID #9 tab 04/01/19 Allergies Allergy/AdvReac Type Severity Reaction Status Date / Time Iodinated Contrast Media AdvReac Severe Anaphylaxis Verified 09/17/19 23:56 [Iodinated Contrast Media - IV Dye] cephalexin monohydrate AdvReac Unknown CAUSED Verified 09/17/19 23:56 [From Keflex] "HOLES" ON HER TONGUE latex AdvReac Unknown Swelling Verified 09/17/19 23:56 nifedipine [From Procardia] AdvReac Unknown Rash/Hives Verified 09/17/19 23:56 Penicillins AdvReac Unknown Rash/Hives Verified 09/17/19 23:56 Review of Systems ROS Statement: Those systems with pertinent positive or pertinent negative responses have been documented in the HPI. ROS Other: All systems not noted in ROS Statement are negative. EKG Findings - EKG Comments: EKG Findings:: EKG was obtained due to complaining of epigastric and chest pain. EKG was obtained at 12:04 AM, rate is 79 rhythm is sinus tach normal axis and normal intervals, MO 134, QRS 100, QTC 435 there are no acute ST elevations or depressions there is no evidence of acute ischemia or infarction. Past Medical History Past Medical History: Asthma, Diabetes Mellitus, Thyroid Disorder Additional Past Medical History / Comment(s): STATES CHECKING FOR COLITIS. STEGLARTO History of Any Multi-Drug Resistant Organisms: None Reported Past Surgical History: Appendectomy, Bowel Resection, Breast Surgery, Cholecystectomy, Hysterectomy Additional Past Surgical History / Comment(s): BREAST CYSTS. Past Anesthesia/Blood Transfusion Reactions: Postoperative Nausea & Vomiting (PONV) Additional Past Anesthesia/Blood Transfusion Reaction / Comment(s): PT ADOPTED. Past Psychological History: Anxiety Smoking Status: Former smoker Past Alcohol Use History: Occasional Past Drug Use History: None Reported - Past Family History Father Additional Family Medical History / Comment(s): PT ADOPTED BUT STATES UNCLE HAD COLON CA AND AUNTS WITH BREAST CA. General Exam - General Exam Comments Initial Comments: Physical Exam GENERAL: Patient is well-developed and well-nourished. Patient is nontoxic and well- hydrated and is in no distress. HENT: Normocephalic, Atraumatic. EYES: PERRL, EOMI PULMONARY: Unlabored respirations. No audible rales rhonchi or wheezing was noted. CARDIOVASCULAR: There is a regular rate and rhythm without any murmurs gallops or rubs. ABDOMEN: Soft and nontender with normal bowel sounds. SKIN: Skin is clear with no lesions or rashes and otherwise unremarkable. : Deferred NEUROLOGIC: Patient is alert and oriented x3. Moving all extremities spontaneously MUSCULOSKELETAL: Normal extremities with adequate strength and full range of motion. No lower extremity swelling or edema. No calf tenderness. PSYCHIATRIC: Normal psychiatric evaluation. Limitations: no limitations Course Vital Signs 09/17/19 09/18/19 09/18/19 23:54 00:30 01:00 Temperature 97.9 F Pulse Rate 91 97 81 Respiratory 20 18 13 Rate Blood Pressure 130/88 137/78 121/79 O2 Sat by Pulse 98 97 98 Oximetry 09/18/19 09/18/19 09/18/19 01:30 02:30 03:00 Temperature Pulse Rate 98 87 81 Respiratory 16 15 12 Rate Blood Pressure 134/79 108/77 108/77 O2 Sat by Pulse 98 Oximetry 09/18/19 03:13 Temperature 98.7 F Pulse Rate Respiratory Rate Blood Pressure O2 Sat by Pulse Oximetry Chest Pain MDM - MDM The patient was seen and evaluated, history is obtained from the patient This is a 48-year-old female presenting with epigastric discomfort and generalized malaise with discomfort radiating into her chest History is not consistent with acute coronary syndrome EKG is nonischemic however chest x-ray and labs will be obtained Labs resulted with no acute abnormalities Is called the patient's room because patient is writhing in pain in the epigast rium and right upper quadrant. Patient reports the pain just acutely worsened, she doesn't feel nauseated she is not vomiting she just uncomfortable. Given the patient's odd complex of symptoms I recommended a CTA to assess the aorta however patient adamantly states that she is severely ALLERGIC to IV needed contrast she will not consent to receiving any type of contrast, she states she will leave the hospital fully try to premedicate her for CT with contrast. I advised the patient we can evaluate the aorta without contrast study and she states that she's not concerned that this is and she does not want to I did give the patient GI cocktail and upon reevaluation she reports her pain is resolved. I discussed with the patient that her pain is likely due to gastritis, her labs are unremarkable given the persistence of her pain prior to arrival at very low suspicion for cardiac etiology there is a negative troponin. Influenza negative. This and patient is requesting discharge home as her symptoms have resolved and she is feeling much better. Patient will follow up with her primary care physician return to the emergency department if needed. Disposition Clinical Impression: Epigastric pain Disposition: HOME SELF-CARE Condition: Stable Instructions (If sedation given, give patient instructions): Chest Pain (ED) Additional Instructions: Follow-up with your primary care doctor this week for reevaluation. I recommend dietary changes, eat smaller meals, avoid fatty or greasy foods. Follow up with gastroenterology for evaluation of epigastric pain. Return to the ER if he have any acute worsening in her condition or develop any new or concerning symptoms. Is patient prescribed a controlled substance at d/c from ED?: No Referrals: Tyler Sparks MD [Primary Care Provider] - 1-2 days
[2019-09-18] MEDS ORDERED: ONDANSETRON 4 MG/2 ML VIAL IVP STA (00:23)
[2019-09-18] MEDS ORDERED: SODIUM CHLORIDE 0.9% 1,000 ML IV STA (00:23)
[2019-09-18] MEDS ORDERED: MORPHINE SULFATE 4 MG/ML SYRINGE IV STA (00:23)
[2019-09-18 00:33] LABS: Basophils # (A) 0.1 k/uL (0-0.2); Basophils % (A) 1 %; Eosinophils # (A) 0.4 k/uL (0-0.7); Eosinophils % (A) 4 %; HCT 37.6 % (34.0-46.0); HGB 12.9 gm/dL (11.4-16.0); Lymphocytes # (A) 3.4 k/uL (1.0-4.8); Lymphocytes % (A) 33 %; MCH 29.3 pg (25.0-35.0); MCHC 34.2 g/dL (31.0-37.0); MCV 85.7 fL (80.0-100.0); Mean Platelet Volume 6.7; Monocytes # (A) 0.7 k/uL (0-1.0); Monocytes % (A) 7 %; Neutrophils # (A) 5.6 k/uL (1.3-7.7); Neutrophils % (A) 54 %; Platelet Count 332 k/uL (150-450); RBC 4.39 m/uL (3.80-5.40); RDW 12.9 % (11.5-15.5); WBC 10.4 k/uL (3.8-10.6)
[2019-09-18 00:43] LABS: ALT 27 U/L (9-52); AST 20 U/L (14-36); African American GFR (CKD) >90 (>60 ml/min/1.73 sqM); Alkaline Phosphatase 93 U/L (38-126); Anion Gap 9 mmol/L; Blood Urea Nitrogen 13 mg/dL (7-17); Calcium 9.5 mg/dL (8.4-10.2); Carbon Dioxide 20 mmol/L (22-30); Chloride 108 mmol/L (98-107); Glucose 151 mg/dL (74-99); Magnesium 1.6 mg/dL (1.6-2.3); Non-African American GFR(CKD) >90 (>60 ml/min/1.73 sqM); Potassium 4.4 mmol/L (3.5-5.1); Sodium 137 mmol/L (137-145); Total Bilirubin 0.2 mg/dL (0.2-1.3); Total Protein 6.9 g/dL (6.3-8.2)
--- NOTE | 2019-09-18 00:46 | XR ---
EXAMINATION TYPE: XR chest 2V DATE OF EXAM: 09/18/2019 COMPARISON: 06/25/2018 HISTORY: Chest pain TECHNIQUE: Frontal and lateral views of the chest are obtained. FINDINGS: Heart and mediastinum are normal. Lungs are clear. Diaphragm is normal. Bony thorax appear s normal. IMPRESSION: Normal chest. No change.
[2019-09-18 00:50] LABS: D-Dimer 0.38 mg/L FEU (<0.60); INR 0.8 (<1.2); Partial Thromboplastin Time 24.4 sec (22.0-30.0); Prothrombin Time 9.4 sec (9.0-12.0)
[2019-09-18] MEDS ORDERED: MAG HYDROX/AL HYDROX/SIMETH 30 ML, HYOSCYAMINE ELIXIR 10 ML, LIDOCAINE VISCOUS 2% 10 ML PO STA ×3 (01:29)
[2019-09-18 03:07] VITALS: BP 108/77; PULSE 81; RESP 12
[2019-09-18 03:14] VITALS: TEMP 98.7
== END 2019-09-18 03:14 | disposition home or self-care (01) ==
LOC: EC 23:45
DX: R10.13 Epigastric pain (principal); R07.9 Chest pain, unspecified; R53.81 Other malaise; E11.9 Type 2 diabetes mellitus without complications; E07.9 Disorder of thyroid, unspecified; Z79.82 Long term (current) use of aspirin; Z79.84 Long term (current) use of oral hypoglycemic drugs; Z79.890 Hormone replacement therapy; Z87.891 Personal history of nicotine dependence; Z88.0 Allergy status to penicillin; Z88.8 Allergy status to other drugs, medicaments and biological substances; Z91.040 Latex allergy status; Z88.1 Allergy status to other antibiotic agents; Z91.041 Radiographic dye allergy status; Z90.49 Acquired absence of other specified parts of digestive tract; Z87.19 Personal history of other diseases of the digestive system; Z98.890 Other specified postprocedural states
CPT/HCPCS: 36415; 93005; 85379; 80053; 83690; 83735; 84484; 85025; 85610; 85730; 87502; 71046; 99285; 96374; 96375; 96361 ×3; J2270; J2405

== ENCOUNTER → 2019-10-09 | Day surgery (SDC) | payer BC ==
[2019-10-06 09:16] VITALS: BMI 30.2
[~2019-10-09] MED LIST: LACTATED RINGERS 1,000 ML IV ONE; LACTATED RINGERS 1,000 ML IV SCH; MIDAZOLAM 2 MG/2 ML VIAL ONE; ONDANSETRON 4 MG/2 ML VIAL IVP ONE; PROPOFOL 10 MG/ML 20 ML VIAL IV ONE; fentaNYL (PF) 50 MCG/ML 2 ML AMP ONE
[2019-10-09 07:13] VITALS: TEMP 98.1
[2019-10-09 07:19] LABS: Glucose,Whole Blood 136 mg/dL (75-99)
--- NOTE | 2019-10-09 08:17 | P.PCN ---
Date of Procedure: 10/09/19 Description of Procedure: Brief history: Patient is a pleasant 49-year-old female presenting for outpatient EGD and colonoscopy for evaluations of symptoms of nausea and blood per rectum. The patient reports episodes of regurgitation and nausea treated with [id number] Tums. The patient also reports intermittent blood per rectum. Previous colonoscopy in 2014 was unremarkable with a normal-appearing colon and terminal ileum. Procedure performed: Esophagogastroduodenoscopy With biopsy Colonoscopy Preoperative diagnosis: Nausea, reflux, blood per rectum, last colonoscopy in 2014 [place] [facility] Procedure: After informed consent was obtained from the patient was brought into the endoscopy unit and IV sedation was administered by anesthesia under continuous monitoring. Initially upper endoscopy was done. The Olympus GF 190 video endoscope was inserted into the mouth and esophagus intubated without any difficulty and was gradually advanced into the stomach and duodenum and carefully examined. The bulb and second part of the duodenum appeared normal, With biopsies taken. The scope was then withdrawn into the stomach adequately insufflated with air and upon careful examination the antrum and body, cardia and fundus appeared normal, Except for some mild scattered erythema in the antrum and body suggestive of mild gastritis with biopsies taken. The scope was then withdrawn into the esophagus. The GE junction was located at 39 cm to the incisors. It appeared regular with no erythema erosions or ulcerations. Rest of the esophagus appeared normal. Patient tolerated the procedure well. At this time the patient continued to remain sedation. Initial digital rectal examination was normal. Olympus CF 190 video colonoscope was then inserted into the rectum and gradually advanced to the cecum without any difficulty. Careful examination was performed as the scope was gradually being withdrawn. The prep was fair, with areas of semisolid stool noted in the colon. The cecum, ascending colon, transverse colon, descending colon, sigmoid colon and rectum a ppeared normal. A few scattered diverticula noted in the sigmoid colon. Retroflexion was performed in the rectum and no lesions were noted, Low-grade internal hemorrhoids. Patient tolerated the procedure well. Impression: 1. Mild gastritis antrum body, biopsied. Biopsies of the duodenum. 2. Mild sigmoid diverticulosis. Low-grade internal hemorrhoids. Recommendations: Findings of this examination were discussed with the patient as well as and her . Okay to resume diet. Okay to resume medications. Follow-up pathology from biopsies. Resume regular screening colonoscopy as previously scheduled for 2024.
[2019-10-09 08:19] VITALS: BP 114/77; PULSE 84; RESP 17
== END ==
LOC: ORWHC2ENDO 06:39
PROVIDERS: ATTEND Internal Medicine
DX: K29.50 Unspecified chronic gastritis without bleeding (principal); K21.9 Gastro-esophageal reflux disease without esophagitis; K57.31 Diverticulosis of large intestine without perforation or abscess with bleeding; K64.8 Other hemorrhoids; J45.909 Unspecified asthma, uncomplicated; E11.9 Type 2 diabetes mellitus without complications; F41.9 Anxiety disorder, unspecified; F32.9 Major depressive disorder, single episode, unspecified; E07.9 Disorder of thyroid, unspecified; E66.9 Obesity, unspecified; Z91.041 Radiographic dye allergy status; Z91.040 Latex allergy status; Z88.1 Allergy status to other antibiotic agents; Z88.0 Allergy status to penicillin; Z87.891 Personal history of nicotine dependence; Z90.49 Acquired absence of other specified parts of digestive tract; Z79.890 Hormone replacement therapy; Z79.84 Long term (current) use of oral hypoglycemic drugs; Z79.899 Other long term (current) drug therapy; Z68.30 Body mass index [BMI] 30.0-30.9, adult; Z80.0 Family history of malignant neoplasm of digestive organs
CPT/HCPCS: 88305; 45378; 43239; J2250; J2405; J3010; J2704

== ENCOUNTER 2020-04-01 19:47 | Emergency (ER) | payer BC, OTHER ==
[2020-04-01 19:59] VITALS: BP 133/94; PULSE 92; RESP 16; TEMP 98.5
--- NOTE | 2020-04-01 20:32 | XR ---
EXAMINATION TYPE: XR wrist complete RT DATE OF EXAM: 04/01/2020 COMPARISON: NONE HISTORY: Wrist pain. Injury. TECHNIQUE: 4 views FINDINGS: Carpal bones are intact. Metacarpals appear intact. Joint spaces are fairly normal. I see n o fracture. Scaphoid appears intact. IMPRESSION: Negative right wrist exam.
--- NOTE | 2020-04-01 20:39 | ED ---
Extremity Problem HPI - General Chief complaint: Extremity Problem,Nontraumatic Stated complaint: Wrist Pain Time Seen by Provider: 04/01/20 19:59 Source: patient Mode of arrival: ambulatory Limitations: no limitations - History of Present Illness Initial comments: 49-year-old female who denies significant past medical history presenting today for chief complaint of right wrist pain. 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 She states that for the past 2 days she has had increasing ventral aspect pain that increases with range of motion. Patient denies a swelling redness denies any fevers. Patient denies experiencing this in the past. Patient states specifically increases wtih flexion/extension. Denies hand, elbow, shoulder pain. Denies history of gout or recent infections. Denies injury, falls or trauma within the last 2-3 months. Patient has no additional complaints. - Related Data Home Medications Medication Instructions Recorded Confirmed metFORMIN HCL [Glucophage] 1,000 mg PO BID 06/25/18 10/06/19 Albuterol Inhaler (Mhu) [Ventolin 1 - 2 puff INHALATION RT-Q6H PRN 10/06/19 10/06/19 Hfa Inhaler] FLUoxetine HCL [PROzac] 10 mg PO DAILY 10/06/19 10/06/19 Thyroid,Pork [Nature-Throid] 260 mg PO DAILY 10/06/19 10/06/19 Allergies Allergy/AdvReac Type Severity Reaction Status Date / Time Iodinated Contrast Media AdvReac Severe Anaphylaxis Verified 04/01/20 19:59 [Iodinated Contrast Media - IV Dye] cephalexin monohydrate AdvReac Unknown CAUSED Verified 04/01/20 19:59 [From Keflex] "HOLES" ON HER TONGUE latex AdvReac Unknown Swelling Verified 04/01/20 19:59 nifedipine [From Procardia] AdvReac Unknown Rash/Hives Verified 04/01/20 19:59 Penicillins AdvReac Unknown Rash/Hives Verified 04/01/20 19:59 Review of Systems ROS Statement: Those systems with pertinent positive or pertinent negative responses have been documented in the HPI. ROS Other: All systems not noted in ROS Statement are negative. Past Medical History Past Medical History: Asthma, Diabetes Mellitus, Thyroid Disorder Additional Past Medical History / Comment(s): STATES CHECKING FOR COLITIS. STEGLARTO History of Any Multi-Drug Resistant Organisms: None Reported Past Surgical History: Appendectomy, Bowel Resection, Breast Surgery, Cholecystectomy, Hysterectomy Additional Past Surgical History / Comment(s): Benign BREAST CYSTS. Past Anesthesia/Blood Transfusion Reactions: Postoperative Nausea & Vomiting (PONV) Additional Past Anesthesia/Blood Transfusion Reaction / Comment(s): PT ADOPTED. Past Psychological History: Anxiety, Depression Smoking Status: Former smoker - Past Family History Father Additional Family Medical History / Comment(s): PT ADOPTED BUT STATES UNCLE HAD COLON CA AND AUNTS WITH BREAST CA. General Exam - General Exam Comments Initial Comments: General: The patient is awake and alert, in no distress Eye: +3 mm pupils are equal, round and reactive to light, extra-ocular movements are intact. No nystagmus. There is normal conjunctiva bilaterally. No signs of icterus. Cardiovascular: There is a regular rate and rhythm. No murmur, rub or gallop is appreciated. Respiratory: Lungs are clear to auscultation, respirations are non-labored, breath sounds are equal. No wheezes, stridor, rales, or rhonchi. Musculoskeletal: Nomral inspection of the wrists b/l Tenderness to application of pressure over the ventral aspect of the wrist no dorsal aspect pain. + phalen, (-) Ev. Normal ROM, no limitations in ROM. Strength 5/5. Sensation intact. Radial pulses equal bilaterally 2+. Neurological: A&O x 3. CN II-XII intact grossly, There are no obvious motor or sensory deficits. Coordination appears grossly intact. Speech is normal. Skin: Skin is warm and dry and no rashes or lesions are noted. Psychiatric: Cooperative, appropriate mood & affect, normal judgment. Limitations: no limitations Course Vital Signs 04/01/20 19:57 Temperature 98.5 F Pulse Rate 92 Respiratory 16 Rate Blood Pressure 133/94 O2 Sat by Pulse 97 Oximetry Medical Decision Making - Medical Decision Making XR (-) for acute process. + Phalens. Tinels sign. Patient is neurovascularly intact and history of over use--typing on computer. I feel this could be a tendonitits vs carpal tunnel syndrome. Discussed importance or rest/f/u and symptomatic treatment. Patient is agreebale to this care plan and discharge at this time. Return parameters were discussed. Disposition Clinical Impression: Wrist pain, Right wrist pain Disposition: HOME SELF-CARE Condition: Good Instructions (If sedation given, give patient instructions): Wrist Injury (ED) Additional Instructions: Please use medication as discussed. Please follow-up with family doctor in the next 2 days. Please return to emergency room if the symptoms increase or worsen or for any other concerns. Is patient prescribed a controlled substance at d/c from ED?: No Referrals: Tyler Sparks MD [Primary Care Provider] - 1-2 days Isaiah Amaral DO [Medical Doctor] - 1-2 days Time of Disposition: 20:39
== END 2020-04-01 20:46 | disposition home or self-care (01) ==
LOC: EC 19:47
DX: M25.531 Pain in right wrist (principal); J45.909 Unspecified asthma, uncomplicated; E11.9 Type 2 diabetes mellitus without complications; E07.9 Disorder of thyroid, unspecified; F32.9 Major depressive disorder, single episode, unspecified; F41.9 Anxiety disorder, unspecified; Z79.84 Long term (current) use of oral hypoglycemic drugs; Z79.899 Other long term (current) drug therapy; Z88.0 Allergy status to penicillin; Z88.1 Allergy status to other antibiotic agents; Z88.8 Allergy status to other drugs, medicaments and biological substances; Z87.891 Personal history of nicotine dependence; Z91.041 Radiographic dye allergy status; Z91.040 Latex allergy status
CPT/HCPCS: 99283

== ENCOUNTER → 2020-06-20 | Outpatient (CLI) | payer BC ==
[2020-06-20 07:54] LABS: Basophils # (A) 0.1 k/uL (0-0.2); Basophils % (A) 1 %; Eosinophils # (A) 0.3 k/uL (0-0.7); Eosinophils % (A) 4 %; HCT 41.9 % (34.0-46.0); HGB 13.8 gm/dL (11.4-16.0); Lymphocytes # (A) 3.3 k/uL (1.0-4.8); Lymphocytes % (A) 40 %; MCH 29.6 pg (25.0-35.0); MCV 89.8 fL (80.0-100.0); Mean Platelet Volume 7.7; Monocytes # (A) 0.5 k/uL (0-1.0); Monocytes % (A) 5 %; Neutrophils # (A) 4.2 k/uL (1.3-7.7); Neutrophils % (A) 49 %; Platelet Count 332 k/uL (150-450); RBC 4.66 m/uL (3.80-5.40); RDW 13.7 % (11.5-15.5); WBC 8.4 k/uL (3.8-10.6)
[2020-06-20 12:40] LABS: T4, Free (Free Thyroxine) 1.1 ng/dL (0.80-1.80)
[2020-06-20 12:42] LABS: Folate, Serum 7.6 ng/mL
[2020-06-20 14:07] LABS: Thyroid Peroxidase Antibodies 5632.2 U/mL (0.0-60.0)
[2020-06-20 14:13] LABS: African American GFR (CKD) 98.9 (60.0-200.0); Albumin 4.6 g/dL (3.80-4.90); Albumin/Globulin Ratio 1.77 (1.60-3.17); Anion Gap 10.2 mmol/L (4.00-12.00); BUN/Creat Ratio 16.25 Ratio (12.00-20.00); C Reactive Protein 0.8 mg/dL (0.0-0.8); Carbon Dioxide 21.8 mmol/L (21.6-31.8); Chol/HDL Ratio 4.07; Globulin 2.6 g/dL (1.6-3.3); Magnesium 1.7 mg/dL (1.5-2.4); Non-African American GFR(CKD) 85.4 (60.0-200.0); Potassium 4.5 mmol/L (3.5-5.5); Total Bilirubin 0.3 mg/dL (0.2-1.2); Total Protein 7.2 g/dL (6.2-8.2)
[2020-06-20 17:46] LABS: Erythrocyte Sedimentation Rate 21 mm/Hr (0-30)
== END | disposition home or self-care (01) ==
LOC: LABWHC1 07:07
PROVIDERS: ATTEND Nurse Practitioner Adult Health
DX: Z00.00 Encounter for general adult medical examination without abnormal findings (principal); E11.9 Type 2 diabetes mellitus without complications; M79.10 Myalgia, unspecified site; E03.9 Hypothyroidism, unspecified
CPT/HCPCS: 36415; 80053; 80061; 82550; 82607; 82746; 83735; 83874; 84439; 84443; 84481; 85025; 85652; 86038; 86140; 86376; 86800

== ENCOUNTER → 2020-07-08 | Outpatient (CLI) | payer BC ==
--- NOTE | 2020-07-09 07:07 | US ---
EXAMINATION TYPE: US thyroid st tissue head/neck DATE OF EXAM: 07/08/2020 COMPARISON: US CLINICAL HISTORY: E04.1 SINGLE THYROID NODULE. F/U previous GLAND SIZE: Right Lobe: 3.8 x 1.8 x 1.0 cm Overall Parenchyma: heterogenous Left Lobe: 3.6 x 1.5 x 1.0 cm Overall Parenchyma: heterogeneous Isthmus Thickness: 0.4 cm NODULES RIGHT: # of nodules measured on right: 1 1. 1.3 X 0.8 x 0.9 cm hypoechoic mixed nodule at the mid pole with well-defined margins; This nodu le is wider than tall and shows intranodular vascularity. Prior size: 1.1 x 0.8 x 0.9 cm Bilateral neck scanned, no evidence of lymphadenopathy. Heterogeneous gland bilaterally, with stable nodule right lobe. IMPRESSION: 1. No significant interval change in the right-sided thyroid nodule. 2. Correlate for thyroiditis.
== END | disposition home or self-care (01) ==
LOC: RADUSWWP 15:48
PROVIDERS: ATTEND Family Medicine
DX: E04.1 Nontoxic single thyroid nodule (principal)
CPT/HCPCS: 76536

== ENCOUNTER → 2021-01-29 | Outpatient (CLI) | payer BC ==
[2021-01-29 14:51] LABS: Basophils # (A) 0.04 X 10*3/uL (0.00-0.10); Basophils % (A) 0.6 %; Eosinophils # (A) 0.25 X 10*3/uL (0.04-0.35); Eosinophils % (A) 3.5 %; HGB 13.9 g/dL (12.0-15.0); Lymphocytes # (A) 2.26 X 10*3/uL (0.90-5.00); Lymphocytes % (A) 31.9 %; MCH 29.3 pg (27.0-32.0); MCHC 33.1 g/dL (32.0-37.0); MCV 88.6 fL (80.0-97.0); Mean Platelet Volume 10.5 fL (9.5-12.2); Monocytes % (A) 8.5 %; Neutrophils # (A) 3.88 X 10*3/uL (1.80-7.70); Neutrophils % (A) 54.8 %; Platelet Count 330 X 10*3/uL (140-440); RBC 4.74 X 10*6/uL (4.10-5.20); RDW 12.6 % (11.5-14.5); WBC 7.08 X 10*3/uL (4.50-10.00)
[2021-01-30 03:14] LABS: ALT 40 U/L (8-44); AST 21 U/L (13-35); African American GFR (CKD) 115.5 (60.0-200.0); Albumin/Globulin Ratio 2.04 (1.60-3.17); Alkaline Phosphatase 99 U/L (41-126); BUN/Creat Ratio 21.43 Ratio (12.00-20.00); Calcium 9.7 mg/dL (8.7-10.3); Carbon Dioxide 19.3 mmol/L (21.6-31.8); Chloride 105 mmol/L (96-109); Chol/HDL Ratio 4.93; Cholesterol 222 mg/dL (0-200); Globulin 2.3 g/dL (1.6-3.3); Glucose 176 mg/dL (70-110); LDL Cholesterol,Calculated 128.6 mg/dL (0.0-131.0); Non-African American GFR(CKD) 99.6 (60.0-200.0); Potassium 4.6 mmol/L (3.5-5.5); Sodium 138 mmol/L (135-145); Total Bilirubin 0.3 mg/dL (0.2-1.2)
== END | disposition home or self-care (01) ==
LOC: LABWHC1 08:31
PROVIDERS: ATTEND Nurse Practitioner Adult Health
DX: E03.9 Hypothyroidism, unspecified (principal); E11.9 Type 2 diabetes mellitus without complications
CPT/HCPCS: 36415; 80053; 80061; 84432; 84439; 84443; 84481; 85025; 86800

== ENCOUNTER 2021-05-20 23:21 | Emergency (ER) | payer BC ==
[2021-05-20 23:30] VITALS: TEMP 97.5
[2021-05-21] MEDS ORDERED: MORPHINE SULFATE 4 MG/ML SYRINGE IV STA (00:05)
[2021-05-21] MEDS ORDERED: KETOROLAC 15 MG/ML 1 ML VIAL IVP STA (00:05)
[2021-05-21] MEDS ORDERED: SODIUM CHLORIDE 0.9% 1,000 ML IV STA (00:05)
--- NOTE | 2021-05-21 00:21 | ED ---
Abdominal Pain HPI - General Chief Complaint: Abdominal Pain Stated Complaint: Abd Pain Time Seen by Provider: 05/20/21 23:34 Source: patient, family, RN notes reviewed, old records reviewed Mode of arrival: ambulatory Limitations: no limitations - History of Present Illness Initial Comments: This is a 48-year-old female DF for evaluation. Patient believes she may have a hernia with significant abdominal pressure she believes that she may have an epi gastric periumbilical hernia. She has no recent other complaints of travel history sick contacts. Patient recently did get Cryo or cold fat burning therapy and thinks it may be related to that but was seen by told she has a hernia. Is having bowel movements he drinking appropriately with no recent significant surgical history. MD Complaint: abdominal pain -: week(s) Location: periumbilical, epigastric, suprapubic Radiation: epigastric, suprapubic Migration to: no migration Severity: moderate Severity scale (1-10): 4 Quality: stabbing Consistency: constant Improves With: nothing Worsens With: nothing Associated Symptoms: nausea, vomiting Treatments Prior to Arrival: other (none) - Related Data Home Medications Medication Instructions Recorded Confirmed metFORMIN HCL [Glucophage] 1,000 mg PO BID 06/25/18 10/06/19 Albuterol Inhaler (Mhu) [Ventolin 1 - 2 puff INHALATION RT-Q6H PRN 10/06/19 10/06/19 Hfa Inhaler] FLUoxetine HCL [PROzac] 10 mg PO DAILY 10/06/19 10/06/19 Thyroid,Pork [Nature-Throid] 260 mg PO DAILY 10/06/19 10/06/19 Allergies Allergy/AdvReac Type Severity Reaction Status Date / Time Iodinated Contrast Media AdvReac Severe Anaphylaxis Verified 05/20/21 23:30 [Iodinated Contrast Media - IV Dye] cephalexin monohydrate AdvReac Unknown CAUSED Verified 05/20/21 23:30 [From Keflex] "HOLES" ON HER TONGUE latex AdvReac Unknown Swelling Verified 05/20/21 23:30 nifedipine [From Procardia] AdvReac Unknown Rash/Hives Verified 05/20/21 23:30 Penicillins AdvReac Unknown Rash/Hives Verified 05/20/21 23:30 Review of Systems ROS Statement: Those systems with pertinent positive or pertinent negative responses have been documented in the HPI. ROS Other: All systems not noted in ROS Statement are negative. Past Medical History Past Medical History: Asthma, Diabetes Mellitus, Thyroid Disorder Additional Past Medical History / Comment(s): STATES CHECKING FOR COLITIS. STEGLARTO History of Any Multi-Drug Resistant Organisms: None Reported Past Surgical History: Appendectomy, Bowel Resection, Breast Surgery, Cholecystectomy, Hysterectomy Additional Past Surgical History / Comment(s): Benign BREAST CYSTS. Past Anesthesia/Blood Transfusion Reactions: Postoperative Nausea & Vomiting (PONV) Additional Past Anesthesia/Blood Transfusion Reaction / Comment(s): PT ADOPTED. Past Psychological History: Anxiety, Depression Smoking Status: Never smoker Past Alcohol Use History: Occasional Past Drug Use History: None Reported - Past Family History Father Additional Family Medical History / Comment(s): PT ADOPTED BUT STATES UNCLE HAD COLON CA AND AUNTS WITH BREAST CA. General Exam Limitations: no limitations General appearance: alert, in no apparent distress Head exam: Present: atraumatic, normocephalic, normal inspection Eye exam: Present: normal appearance, PERRL, EOMI. Absent: scleral icterus, conjunctival injection, periorbital swelling ENT exam: Present: normal exam, mucous membranes moist Neck exam: Present: normal inspection. Absent: tenderness, meningismus, lymphadenopathy Respiratory exam: Present: normal lung sounds bilaterally. Absent: respiratory distress, wheezes, rales, rhonchi, stridor Cardiovascular Exam: Present: regular rate, normal rhythm, normal heart sounds. Absent: systolic murmur, diastolic murmur, rubs, gallop, clicks GI/Abdominal exam: Present: soft, normal bowel sounds. Absent: distended, tenderness, guarding, rebound, rigid Extremities exam: Present: normal inspection, full ROM, normal capillary refill. Absent: tenderness, pedal edema, joint swelling, calf tenderness Back exam: Present: normal inspection Neurological exam: Present: alert, oriented X3, CN II-XII intact Psychiatric exam: Present: normal affect, normal mood Skin exam: Present: warm, dry, intact, normal color. Absent: rash Course Vital Signs 05/20/21 05/21/21 23:26 01:58 Temperature 97.5 F L Pulse Rate 85 70 Respiratory 18 16 Rate Blood Pressure 141/93 110/71 O2 Sat by Pulse 98 98 Oximetry - Reevaluation(s) Reevaluation #1: 05/21/21 Medical record is reviewed Patient symptoms are significantly improved here in the ER Patient is informed and results and questions answered Patient is in no acute distress Medical Decision Making - Medical Decision Making 50 female with nonspecific abdominal pain. CT is negative here labwork is normal patient can be discharged home - Lab Data Result diagrams: 05/21/21 00:16 05/21/21 00:16 Lab Results 05/21/21 05/21/21 05/21/21 Range/Units 00:16 00:16 00:16 WBC 11.4 H (3.8-10.6) k/uL RBC 4.70 (3.80-5.40) m/uL Hgb 15.0 (11.4-16.0) gm/dL Hct 42.6 (34.0-46.0) % MCV 90.7 (80.0-100.0) fL MCH 32.0 (25.0-35.0) pg MCHC 35.3 (31.0-37.0) g/dL RDW 13.4 (11.5-15.5) % Plt Count 309 (150-450) k/uL MPV 8.0 Neutrophils % 58 % Lymphocytes % 31 % Monocytes % 6 % Eosinophils % 3 % Basophils % 1 % Neutrophils # 6.6 (1.3-7.7) k/uL Lymphocytes # 3.5 (1.0-4.8) k/uL Monocytes # 0.7 (0-1.0) k/uL Eosinophils # 0.3 (0-0.7) k/uL Basophils # 0.1 (0-0.2) k/uL Sodium 137 (137-145) mmol/L Potassium 4.6 (3.5-5.1) mmol/L Chloride 102 (98-107) mmol/L Carbon Dioxide 25 (22-30) mmol/L Anion Gap 10 mmol/L BUN 17 (7-17) mg/dL Creatinine 0.98 (0.52-1.04) mg/dL Est GFR (CKD-EPI)AfAm 77 (>60 ml/min/1.73 sqM) Est GFR (CKD-EPI)NonAf 67 (>60 ml/min/1.73 sqM) Glucose 166 H (74-99) mg/dL Plasma Lactic Acid Donovan (0.7-2.0) mmol/L Calcium 10.2 (8.4-10.2) mg/dL Total Bilirubin 0.2 (0.2-1.3) mg/dL AST 21 (14-36) U/L ALT 21 (4-34) U/L Alkaline Phosphatase 111 (38-126) U/L Total Protein 7.9 (6.3-8.2) g/dL Albumin 4.9 (3.5-5.0) g/dL Amylase 62 (30-110) U/L Lipase 75 (23-300) U/L Urine Color Light Yellow Urine Appearance Clear (Clear) Urine pH 5.5 (5.0-8.0) Ur Specific [place] 1.010 (1.001-1.035) Urine Protein Negative (Negative) Urine Glucose (UA) Negative (Negative) Urine Ketones Negative (Negative) Urine Blood Negative (Negative) Urine Nitrite Negative (Negative) Urine Bilirubin Negative (Negative) Urine Urobilinogen <2.0 (<2.0) mg/dL Ur Leukocyte Esterase Negative (Negative) 05/21/21 Range/Units 00:16 WBC (3.8-10.6) k/uL RBC (3.80-5.40) m/uL Hgb (11.4-16.0) gm/dL Hct (34.0-46.0) % MCV (80.0-100.0) fL MCH (25.0-35.0) pg MCHC (31.0-37.0) g/dL RDW (11.5-15.5) % Plt Count (150-450) k/uL MPV Neutrophils % % Lymphocytes % % Monocytes % % Eosinophils % % Basophils % % Neutrophils # (1.3-7.7) k/uL Lymphocytes # (1.0-4.8) k/uL Monocytes # (0-1.0) k/uL Eosinophils # (0-0.7) k/uL Basophils # (0-0.2) k/uL Sodium (137-145) mmol/L Potassium (3.5-5.1) mmol/L Chloride (98-107) mmol/L Carbon Dioxide (22-30) mmol/L Anion Gap mmol/L BUN (7-17) mg/dL Creatinine (0.52-1.04) mg/dL Est GFR (CKD-EPI)AfAm (>60 ml/min/1.73 sqM) Est GFR (CKD-EPI)NonAf (>60 ml/min/1.73 sqM) Glucose (74-99) mg/dL Plasma Lactic Acid Donovan 1.1 (0.7-2.0) mmol/L Calcium (8.4-10.2) mg/dL Total Bilirubin (0.2-1.3) mg/dL AST (14-36) U/L ALT (4-34) U/L Alkaline Phosphatase (38-126) U/L Total Protein (6.3-8.2) g/dL Albumin (3.5-5.0) g/dL Amylase (30-110) U/L Lipase (23-300) U/L Urine Color Urine Appearance (Clear) Urine pH (5.0-8.0) Ur Specific [place] (1.001-1.035) Urine Protein (Negative) Urine Glucose (UA) (Negative) Urine Ketones (Negative) Urine Blood (Negative) Urine Nitrite (Negative) Urine Bilirubin (Negative) Urine Urobilinogen (<2.0) mg/dL Ur Leukocyte Esterase (Negative) - Radiology Data Radiology results: report reviewed (CT head and pelvis is negative for acute disease), image reviewed Disposition Clinical Impression: Abdominal pain Disposition: HOME SELF-CARE Condition: Good Instructions (If sedation given, give patient instructions): Abdominal Pain (ED) Is patient prescribed a controlled substance at d/c from ED?: No Referrals: Tyler Sparks MD [Primary Care Provider] - 1-2 days
[2021-05-21 00:54] LABS: Appearance,Urine Clear (Clear); Bilirubin,Urine Negative (Negative); Blood,Urine Negative (Negative); Color,Urine Light Yellow; Glucose,Urine (UA) Negative (Negative); Ketones,Urine Negative (Negative); Leukocyte Esterase,Urine Negative (Negative); Nitrite,Urine Negative (Negative); PH, Urine 5.5 (5.0-8.0); Protein,Urine Negative (Negative); Urobilinogen,Urine <2.0 mg/dL (<2.0)
[2021-05-21 00:55] LABS: Basophils # (A) 0.1 k/uL (0-0.2); Basophils % (A) 1 %; Eosinophils # (A) 0.3 k/uL (0-0.7); Eosinophils % (A) 3 %; HCT 42.6 % (34.0-46.0); Lymphocytes # (A) 3.5 k/uL (1.0-4.8); Lymphocytes % (A) 31 %; MCHC 35.3 g/dL (31.0-37.0); MCV 90.7 fL (80.0-100.0); Monocytes # (A) 0.7 k/uL (0-1.0); Monocytes % (A) 6 %; Neutrophils # (A) 6.6 k/uL (1.3-7.7); Neutrophils % (A) 58 %; Platelet Count 309 k/uL (150-450); RDW 13.4 % (11.5-15.5); WBC 11.4 k/uL (3.8-10.6)
[2021-05-21 01:10] LABS: Albumin 4.9 g/dL (3.5-5.0); Calcium 10.2 mg/dL (8.4-10.2); Potassium 4.6 mmol/L (3.5-5.1); Total Bilirubin 0.2 mg/dL (0.2-1.3); Total Protein 7.9 g/dL (6.3-8.2)
--- NOTE | 2021-05-21 01:20 | CT ---
EXAMINATION TYPE: CT abdomen pelvis wo con DATE OF EXAM: 05/21/2021 COMPARISON: 03/22/2019 HISTORY: abd pain CT DLP: 770.7 mGycm Automated exposure control for dose reduction was used. Images obtained from the diaphragm to the floor the pelvis with no contrast. Lung bases are clear. There is no pleural effusion. Heart size is normal. There is no pericardial eff usion. Liver spleen stomach pancreas appear intact. The bile ducts are not dilated. There are clips from cho lecystectomy. There is no adrenal mass. Kidneys have normal size and contour. There is no hydronephrosis. Ureters a re not dilated. There is no retroperitoneal adenopathy. There are clips apparently from appendectomy. The bladder distends smoothly. There is no inguinal hernia. There is no free fluid in the pelvis. Th ere is hysterectomy. There is narrowing of L5-S1 disc space. Lumbar vertebra have normal alignment. Posterior elements are intact. The bony pelvis is intact. The hip joints are intact. There is no mesenteric edema. There is no ascites or free air. There is no bowel obstruction. There a re a few scattered large bowel diverticula. There is no diverticulitis. IMPRESSION: Negative CT scan of the abdomen pelvis. There is clearing of the small fluid collection in the latera l left pelvis compared to old exam.
[2021-05-21 01:59] VITALS: BP 110/71; PULSE 70; RESP 16
== END 2021-05-21 01:59 | disposition home or self-care (01) ==
LOC: EC 23:21
DX: R10.13 Epigastric pain (principal); R11.2 Nausea with vomiting, unspecified; J45.909 Unspecified asthma, uncomplicated; E11.9 Type 2 diabetes mellitus without complications; E07.9 Disorder of thyroid, unspecified; Z91.041 Radiographic dye allergy status; Z88.1 Allergy status to other antibiotic agents; Z91.040 Latex allergy status; Z88.0 Allergy status to penicillin; Z79.84 Long term (current) use of oral hypoglycemic drugs; Z79.890 Hormone replacement therapy; Z90.49 Acquired absence of other specified parts of digestive tract
CPT/HCPCS: 99284; 96374; 96375; 96361; 36415; 80053; 82150; 83605; 83690; 85025; 81003; 74176; J2270; J1885

== ENCOUNTER → 2021-06-25 | Outpatient (CLI) | payer BC ==
--- NOTE | 2021-06-25 10:22 | US ---
EXAMINATION TYPE: US abdomen complete DATE OF EXAM: 06/25/2021 COMPARISON: CT 2020, US 2016 CLINICAL HISTORY: K42.9 Umbilical hernia without obstruction or gang. Abdomen pain EXAM MEASUREMENTS: Liver Length: 15.7 cm CBD: 1.0 cm Spleen: 10.4 cm Right Kidney: 11.5 x 5.3 x 5.1 cm Left Kidney: 11.5 x 4.8 x 5.2 cm Pancreas: wnl Liver: 1.2cm hyperechoic lesion right lobe Gallbladder: surgically absent Evidence for sonographic Smith's sign: no CBD: Upper limits of normal Spleen: wnl Right Kidney: wnl Left Kidney: wnl Upper IVC: wnl Abd Aorta: wnl IMPRESSION: 1. Small hyperechoic area within the liver may be a small hemangioma.
== END | disposition home or self-care (01) ==
LOC: RADUSWWP 09:26
PROVIDERS: ATTEND Family Medicine
DX: K42.9 Umbilical hernia without obstruction or gangrene (principal)
CPT/HCPCS: 76700

== ENCOUNTER → 2021-07-30 | Outpatient (CLI) | payer BC | END | disposition home or self-care (01) | LOC: RADMRIMAIN 20:49 | PROVIDERS: ATTEND Nurse Practitioner Adult Health | DX: Z53.9 Procedure and treatment not carried out, unspecified reason (principal) ==

== ENCOUNTER 2021-09-30 07:21 | Day surgery (SDC) | payer BC ==
[~2021-09-30 07:21] MED LIST changes: -LACTATED RINGERS 1,000 ML IV ONE; +LIDOCAINE 1% (10MG/ML) FOR IV START INTRADERMA PRN; -MIDAZOLAM 2 MG/2 ML VIAL ONE; -ONDANSETRON 4 MG/2 ML VIAL IVP ONE; -PROPOFOL 10 MG/ML 20 ML VIAL IV ONE; -fentaNYL (PF) 50 MCG/ML 2 ML AMP ONE
[2021-09-30 08:03] VITALS: TEMP 97.2
[2021-09-30 08:13] LABS: Glucose,Whole Blood 132 mg/dL (75-99)
[2021-09-30] MEDS ORDERED: PROPOFOL 10 MG/ML 20 ML VIAL IV ONE (08:30)
--- NOTE | 2021-09-30 09:05 | P.PCN ---
Date of Procedure: 09/30/21 Procedure(s) Performed: PREOPERATIVE DIAGNOSIS: GERD, abdominal pain, change in bowel habits, hemorrhoidal skin tag POSTOPERATIVE DIAGNOSIS: Mild gastritis, PROCEDURE: 1. EGD with biopsy 2. Colonoscopy with removal of hemorrhoidal skin tag ANESTHESIA: MAC SURGEON: Boy Mcfadden M.D. SPECIMENS: Antrum ENDOSCOPIC PROCEDURE: The patient was on the endoscopy table in the left decubitus position. The Olympus gastroscope was inserted into the oropharynx and passed under direct visualization to the region of the third portion of the duodenum. From that point the scope was slowly withdrawn inspecting all surfaces carefully. There were no neoplastic inflammatory or polypoid lesions throughout the duodenum. The pylorus was widely patent. The stomach was carefully inspected. There was mild gastritis. A biopsy of the antrum took place to rule out H. pylori. Retroflexion revealed a normal hiatus. The esophagus was then carefully examined. There were no neoplastic inflammatory or polypoid lesions throughout the visualized esophagus. The patient was kept on the endoscopy table in the left decubitus position. The Olympus colonoscope was inserted into the anus and passed under direct visualization to the base of the cecum. The appendiceal orifice was visualized. From that point the scope was slowly withdrawn inspecting all surfaces carefully. There were no neoplastic inflammatory or polypoid lesions throughout the cecum, ascending, transverse, descending, sigmoid and rectum. There was no visible diverticulosis noted. Digital rectal examination revealed a prominent external hemorrhoidal skin tag. This was grasped with a hemostat. The base of the hemorrhoidal skin tag was ligated using a 3-0 Vicryl stitch. The tag was then sharply excised and sent to pathology. The patient was taken to the recovery room in stable condition per anesthesia guidelines. RECOMMENDATIONS: Await biopsies results of skin tag. Resume diet. Follow-up colonoscopy in 10 years.
[2021-09-30 09:25] VITALS: BP 111/76; PULSE 78; RESP 16
[2021-09-30] MEDS ORDERED: IV FLUID CONTINUATION 600 ML IV ONE (09:36)
== END 2021-09-30 09:37 | disposition home or self-care (01) ==
LOC: ORWHC2ENDO 07:21
PROVIDERS: ATTEND Surgery
DX: K29.50 Unspecified chronic gastritis without bleeding (principal); K64.4 Residual hemorrhoidal skin tags; E11.9 Type 2 diabetes mellitus without complications; E07.9 Disorder of thyroid, unspecified; J45.909 Unspecified asthma, uncomplicated; F41.9 Anxiety disorder, unspecified; E78.5 Hyperlipidemia, unspecified; F32.A Depression, unspecified; Z90.49 Acquired absence of other specified parts of digestive tract; Z90.710 Acquired absence of both cervix and uterus; Z98.890 Other specified postprocedural states; Z80.3 Family history of malignant neoplasm of breast; Z80.0 Family history of malignant neoplasm of digestive organs; Z87.891 Personal history of nicotine dependence; Z79.890 Hormone replacement therapy; Z79.84 Long term (current) use of oral hypoglycemic drugs; Z79.899 Other long term (current) drug therapy; Z91.048 Other nonmedicinal substance allergy status; Z91.040 Latex allergy status; Z88.0 Allergy status to penicillin; Z88.8 Allergy status to other drugs, medicaments and biological substances; Z88.1 Allergy status to other antibiotic agents; Z91.041 Radiographic dye allergy status
CPT/HCPCS: 88304; 88305; 45378; 43239; J2704

== ENCOUNTER 2022-01-03 01:51 | Emergency (ER) | payer BC ==
[2022-01-03 01:59] VITALS: BP 116/60; PULSE 100; RESP 22; TEMP 98.3
[2022-01-03 02:06] LABS: Glucose,Whole Blood 197 mg/dL (75-99)
== END 2022-01-03 02:08 | disposition left against medical advice (07) ==
LOC: EC 01:51
DX: Z53.21 Procedure and treatment not carried out due to patient leaving prior to being seen by health care provider (principal)
CPT/HCPCS: 36415; 99499

== ENCOUNTER → 2022-06-11 | Outpatient (CLI) | payer BC ==
--- NOTE | 2022-06-11 11:31 | CT ---
EXAMINATION TYPE: CT abdomen pelvis wo con DATE OF EXAM: 06/11/2022 HISTORY: lower abd pain x2 years. Left lower quadrant pain per order. CT DLP: 1040 mGycm. Automated Exposure Control for Dose Reduction was Utilized. TECHNIQUE: CT scan of the abdomen and pelvis is performed without oral or IV contrast. COMPARISON: Prior CT May 21, 2021 and older studies FINDINGS: Within the limitations of a non-contrast study, the following observations are made. LUNG BASES: No significant abnormality is appreciated. LIVER/GB: Cholecystectomy clips are redemonstrated. PANCREAS: No significant abnormality is seen. SPLEEN: No significant abnormality is seen. ADRENALS: No significant abnormality is seen. KIDNEYS: No renal stones or hydronephrosis is seen bilaterally. BOWEL: Slightly suboptimal evaluation without enteric contrast. No suspicious small or large bowel di latation. Single diverticulum sigmoid colon left pelvis coronal image 52 redemonstrated without adjac ent fat stranding. Otherwise no significant colonic diverticula or CT evidence for acute diverticulit is. Surgical sutures from appendectomy at base of cecum are redemonstrated GENITAL ORGANS: Uterus surgically absent or markedly atrophic. Scattered small bilateral pelvic phleb oliths are redemonstrated. LYMPH NODES: No new greater than 1cm abdominal or pelvic lymph nodes are appreciated. OSSEOUS STRUCTURES: Persistent moderate to severe disc space narrowing L5-S1 level. OTHER: No significant additional abnormality is seen. IMPRESSION: No suspicious new or acute findings are evident.
== END | disposition home or self-care (01) ==
LOC: RADCTMAIN 10:47
PROVIDERS: ATTEND Family Medicine
DX: R10.32 Left lower quadrant pain (principal)
CPT/HCPCS: 74176

== ENCOUNTER → 2022-10-19 | Outpatient (CLI) | payer BC ==
[2022-10-19 18:58] LABS: Basophils % (A) 1.3 %; Eosinophils # (A) 0.26 X 10*3/uL (0.04-0.35); Eosinophils % (A) 3.3 %; HCT 42.7 % (37.2-46.3); HGB 13.7 g/dL (12.0-15.0); Immature Grans, Automated 0.8 %; Lymphocytes # (A) 2.56 X 10*3/uL (0.90-5.00); Lymphocytes % (A) 32.6 %; MCH 29.1 pg (27.0-32.0); MCHC 32.1 g/dL (32.0-37.0); MCV 90.9 fL (80.0-97.0); Mean Platelet Volume 10.4 fL (9.5-12.2); Monocytes # (A) 0.47 X 10*3/uL (0.20-1.00); NRBC Per 100 WBC 0 /100 WBCS (0.0-0.0); Neutrophils # (A) 4.41 X 10*3/uL (1.80-7.70); Platelet Count 312 X 10*3/uL (140-440); RDW 12.9 % (11.5-14.5); WBC 7.86 X 10*3/uL (4.50-10.00)
[2022-10-19 19:16] LABS: ALT 20 U/L (8-44); AST 16 U/L (13-35); African American GFR (CKD) 93.3 (60.0-200.0); Albumin 4.9 g/dL (3.8-4.9); Albumin/Globulin Ratio 1.76 (1.60-3.17); Alkaline Phosphatase 103 U/L (41-126); BUN/Creat Ratio 19.76 Ratio (12.00-20.00); Blood Urea Nitrogen 16.3 mg/dL (9.0-27.0); Carbon Dioxide 20.3 mmol/L (20.0-27.5); Chloride 103 mmol/L (96-109); Globulin 2.8 g/dL (1.6-3.3); Glucose 115 mg/dL (70-110); LDL Cholesterol,Calculated 94.3 mg/dL (0.0-131.0); Non-African American GFR(CKD) 80.5 (60.0-200.0); Potassium 5.3 mmol/L (3.5-5.5); Sodium 137 mmol/L (135-145); Total Protein 7.7 g/dL (6.2-8.2)
== END | disposition home or self-care (01) ==
LOC: LABWHC1 11:48
PROVIDERS: ATTEND Family Medicine
DX: Z00.00 Encounter for general adult medical examination without abnormal findings (principal); E03.9 Hypothyroidism, unspecified
CPT/HCPCS: 36415; 80053; 80061; 84439; 84443; 84481; 85025

== ENCOUNTER → 2023-01-20 | Outpatient (CLI) | payer BC ==
--- NOTE | 2023-01-20 12:59 | XR ---
EXAMINATION TYPE: XR chest 2V DATE OF EXAM: 01/20/2023 COMPARISON: 08/19/2019 TECHNIQUE: PA and lateral views submitted. HISTORY: Presurgical FINDINGS: The lungs are clear and there is no pneumothorax, pleural effusion, or focal pneumonia. Heart size normal and no overt failure. Osseous structures intact. Stable calcified granuloma right lower lobe. Surgical clips in the abdomen.. IMPRESSION: 1. No acute process.
[2023-01-20 15:50] LABS: Basophils # (A) 0.17 X 10*3/uL (0.00-0.10); Basophils % (A) 1.9 %; Eosinophils # (A) 0.55 X 10*3/uL (0.04-0.35); Eosinophils % (A) 6.1 %; HCT 42.1 % (37.2-46.3); HGB 13.7 g/dL (12.0-15.0); Immature Grans, Automated 0.6 %; Lymphocytes # (A) 3.28 X 10*3/uL (0.90-5.00); Lymphocytes % (A) 36.4 %; MCH 29.5 pg (27.0-32.0); MCHC 32.5 g/dL (32.0-37.0); MCV 90.7 fL (80.0-97.0); Mean Platelet Volume 10.3 fL (9.5-12.2); Monocytes # (A) 0.51 X 10*3/uL (0.20-1.00); Monocytes % (A) 5.7 %; NRBC Per 100 WBC 0 /100 WBCS (0.0-0.0); Neutrophils # (A) 4.46 X 10*3/uL (1.80-7.70); Neutrophils % (A) 49.3 %; Platelet Count 289 X 10*3/uL (140-440); RBC 4.64 X 10*6/uL (4.10-5.20); RDW 13.5 % (11.5-14.5); WBC 9.02 X 10*3/uL (4.50-10.00)
[2023-01-20 16:06] LABS: INR 0.9 (0.90-1.11); Prothrombin Time 10.2 sec (9.9-11.9)
[2023-01-21 00:25] LABS: African American GFR (CKD) 101.9 (60.0-200.0); Albumin 4.7 g/dL (3.8-4.9); Albumin/Globulin Ratio 1.66 (1.60-3.17); Anion Gap 11.6 mmol/L (10.00-18.00); BUN/Creat Ratio 18.9 Ratio (12.00-20.00); Blood Urea Nitrogen 14.5 mg/dL (9.0-27.0); Calcium 10.5 mg/dL (8.7-10.3); Carbon Dioxide 25.1 mmol/L (20.0-27.5); Globulin 2.9 g/dL (1.6-3.3); Total Bilirubin 0.2 mg/dL (0.30-1.20); Total Protein 7.6 g/dL (6.2-8.2)
== END | disposition home or self-care (01) ==
LOC: LABPAT 12:15
PROVIDERS: ATTEND Orthopaedic Surgery
DX: M23.91 Unspecified internal derangement of right knee (principal)
CPT/HCPCS: 71046; 80053; 85025; 85610; 93005

== ENCOUNTER 2023-02-04 11:20 | Day surgery (SDC) | payer BC ==
--- NOTE | 2023-02-03 13:51 | HP ---
HISTORY AND PHYSICAL DATE OF SCHEDULED SURGERY: 02/04/2023. HISTORY OF PRESENT ILLNESS: Ellie Evans is a 52-year-old patient seen with progressive right knee pain. Options were discussed. She elected to proceed with right knee arthroscopy. Consent was obtained. PAST MEDICAL HISTORY: Hypertension, hyperlipidemia, twz-[id number]-opxsnoaxo diabetes. PAST SURGICAL HISTORY: Appendectomy, breast biopsy, cholecystectomy, and tonsillectomy. DAILY MEDICATIONS: 1. Ibuprofen. 2. Lipitor. 3. Ozempic. 4. Pepcid. 5. Tramadol. ALLERGIES: CT contrast dye, latex, penicillin, Procardia. SOCIAL HISTORY: She denies tobacco use. PHYSICAL EVALUATION OF RIGHT KNEE: Range of motion is 0-130 degrees. Mild effusion. Tenderness to medial joint line. Positive medial Umu's. Ligaments stable. Hip rotation without pain. Distal neurovascular exam is intact. RADIOGRAPHS: Right knee radiographs revealed moderate osteoarthritic change along with a bipartite patella. An MRI of the right knee revealed patella chondromalacia, possible medial meniscal tear. IMPRESSION: 1. Internal derangement of right knee with symptomatic bipartite patella and possible meniscal tear. 2. Hypertension. 3. Puk-mluavql-tkxlvwhyy diabetes. 4. Hypothyroidism. PLAN: Right knee arthroscopy with excision of bipartite patella, debridement. MMODL / IJN: [id number] /
[~2023-02-04 11:20] MED LIST changes: -LIDOCAINE 1% (10MG/ML) FOR IV START INTRADERMA PRN; +ONDANSETRON 4 MG/2 ML VIAL IVP ONE; +fentaNYL (PF) 50 MCG/ML 2 ML AMP IV PRN
[2023-02-04 11:52] LABS: Glucose,Whole Blood 129 mg/dL (70-110)
[2023-02-04] MEDS ORDERED: MIDAZOLAM 2 MG/2 ML VIAL IVP ONE (12:03)
[2023-02-04] MEDS ORDERED: CLINDAMYCIN 600 MG in DEXTROSE 5% IN WATER 50 ML IVPB STA ×2 (12:10)
[2023-02-04] MEDS ORDERED: PROPOFOL 10 MG/ML 20 ML VIAL IV ONE (12:14)
[2023-02-04] MEDS ORDERED: LIDOCAINE 2% INJ 20 MG/ML (2 ML VIAL) ONE (12:14)
[2023-02-04] MEDS ORDERED: MIDAZOLAM 2 MG/2 ML VIAL ONE (12:14)
[2023-02-04] MEDS ORDERED: SUCCINYLCHOLINE CHLORIDE 200 MG/10 ML VIAL IV ONE (12:14)
[2023-02-04] MEDS ORDERED: fentaNYL (PF) 50 MCG/ML 2 ML AMP ONE (12:14)
[2023-02-04] MEDS ORDERED: BUPIVACAINE (PF) 0.25% 30 ML VIAL SQ ONE ×2 (12:38→13:09)
--- NOTE | 2023-02-04 13:32 | P.OP ---
Date of Procedure: 02/04/23 Preoperative Diagnosis: Internal derangement right knee Postoperative Diagnosis: 1. Symptomatic bipartite patella right knee 2. Lateral meniscal tear right knee 3. Reactive synovitis medial, lateral and suprapatellar compartments right knee Procedure(s) Performed: 1. Arthroscopic partial patellectomy right knee 2. Arthroscopic partial lateral meniscectomy right knee 3. Arthroscopic partial synovectomy medial, lateral and suprapatellar compartments right knee Anesthesia: GIACOMOA, local Surgeon: Dominic Del Rosario Estimated Blood Loss (ml): 11 Pathology: none sent Condition: stable Disposition: PACU Indications for Procedure: 52-year-old patient seen with progressive right knee pain to include symptomatic bipartite patella. After treatment options were discussed with her, she elected to proceed with arthroscopy. Operative Findings: See description of procedure Description of Procedure: Patient was taken to the operative suite. Patient underwent a general anesthetic by the department of anesthesia. Patient was given preoperative antibiotics. The right lower extremity was placed in a well-padded arthroscopic leg aragon. The right leg was prepped and draped in the normal sterile orthopedic fashion. A lateral parapatellar and suprapatellar incision was made. Trochars were inserted. Arthroscopy was initiated. Suprapatellar pouch right. The patellofemoral joint appeared revealed diffuse thick reactive synovitis. There was grade chondromalacia central portion of the patella with some small osteochondral flap tears. I did note a bipartite patella along the superior lateral corner of the patella. I introduced a probe to the area and noted that it was unstable. The scope was guided into the medial gutter. No loose bodies or plica were identified. The scope was then guided into the medial com partment. A medial parapatellar incision was made. Trocar inserted followed by probe. The medial meniscus was probed and was found to be stable. There was no significant chondromalacia. There was some reactive synovitis anteriorly. I introduced a motorized shaver and I performed a partial synovectomy. Shaver was removed. There was good decompression of the synovitis. Scope and probe were then guided into the intercondylar notch. Cruciates were identified, probed and found to be stable. The scope and probe were then guided into lateral compartment. There was a small radial tear midbody lateral meniscus. There was no chondromalacia present. There was some thick reactive synovitis anteriorly. I performed a partial lateral meniscectomy. I performed a partial synovectomy. The residual meniscus was stable. There was good decompression of the synovitis. The scope was in guided back into the suprapatellar compartment. I introduced a motorized shaver into the suprapatellar compartment. I performed a chondroplasty of patella. I performed a partial synovectomy. Shaver was removed. I now created an solar sales assessor portal site along the lateral aspect of the patella. I introduced a motorized bur. I now performed a partial patellectomy knee excising that unstable superior lateral patellar fragment. I now probed the area and noted fairly good excision of that unstable bipartite patella. I now took one more look around the entire knee, no residual debris. Instruments were now removed from the joint. The joint was infiltrated with .25% Marcaine. Steri-Strips were applied to the portal sites. Sterile dressings were applied. The patient was placed into a LEV hose. No tourniquet was utilized. The patient was awakened, transferred to a bed and taken to recovery stable satisfactory condition.
[2023-02-04 13:36] VITALS: TEMP 97.1
[2023-02-04] MEDS: HYDROmorphone 0.5 MG/0.5 ML SYRINGE IVP PRN ×2 (13:41→13:57)
[2023-02-04 13:52] LABS: Glucose,Whole Blood 100 mg/dL (70-110)
[2023-02-04] MEDS ORDERED: ONDANSETRON 4 MG/2 ML VIAL ONE (14:55)
[2023-02-04] MEDS ORDERED: ONDANSETRON 4 MG/2 ML VIAL IVP ONE (14:57)
[2023-02-04 15:03] VITALS: RESP 20
[2023-02-04] MEDS ORDERED: LACTATED RINGERS 1,000 ML IV ONE (15:08)
[2023-02-04] MEDS ORDERED: HYDROcodone/APAP 5-325MG 1 EACH TAB ONE (15:13)
[2023-02-04 15:48] VITALS: BP 122/79; PULSE 88
== END 2023-02-04 15:56 | disposition home or self-care (01) ==
LOC: OR 11:20
PROVIDERS: ATTEND Orthopaedic Surgery
DX: M23.91 Unspecified internal derangement of right knee (principal); Q74.1 Congenital malformation of knee; S83.281A Other tear of lateral meniscus, current injury, right knee, initial encounter; M65.9 Synovitis and tenosynovitis, unspecified; I10 Essential (primary) hypertension; E78.5 Hyperlipidemia, unspecified; E11.9 Type 2 diabetes mellitus without complications; Z90.49 Acquired absence of other specified parts of digestive tract; Z90.89 Acquired absence of other organs; Z79.899 Other long term (current) drug therapy; Z88.0 Allergy status to penicillin; Z91.040 Latex allergy status; Z91.041 Radiographic dye allergy status; Z88.8 Allergy status to other drugs, medicaments and biological substances
CPT/HCPCS: 29881; J2250; J0330; J2405; J3010; J2704; J1170; J1790; J2001

== ENCOUNTER 2023-02-06 20:36 | Emergency (ER) | payer BC ==
[2023-02-06 20:48] VITALS: RESP 16
--- NOTE | 2023-02-06 21:42 | US ---
EXAMINATION TYPE: US venous doppler duplex LE RT DATE OF EXAM: 02/06/2023 9:34 PM COMPARISON: NONE CLINICAL INDICATION: Female, 52 years old with history of lower leg swelling after knee surgery; pain post op knee surgery SIDE PERFORMED: Right TECHNIQUE: The lower extremity deep venous system is examined utilizing real time linear array sonog sara with graded compression, doppler sonography and color-flow sonography. VESSELS IMAGED: Common Femoral Vein Deep Femoral Vein Greater Saphenous Vein * Femoral Vein Popliteal Vein Small Saphenous Vein * Proximal Calf Veins (* superficial vessels) Right Leg: Negative for DVT IMPRESSION: Grayscale, color doppler, spectral doppler imaging performed of the deep veins of the lo wer extremities. There is normal flow, compressibility, vascular waveforms.
--- NOTE | 2023-02-06 21:46 | ED ---
Extremity Problem HPI - General Chief complaint: Extremity Problem,Nontraumatic Stated complaint: PO Surgery, Mass on leg Time Seen by Provider: 02/06/23 20:50 Source: patient Mode of arrival: ambulatory Limitations: no limitations - History of Present Illness Initial comments: Patient is a 52 year old female who presents for swelling in right lower leg. Patient had a right knee arthroscope on Wednesday with partial colectomy, partial lateral meniscectomy, partial synovectomy performed by Dr. Mcneill. The surgery went well pain has been tolerable. Yesterday night patient noticed increased swelling to her right lower leg just below the knee. Patient concerned with the swelling. She denies fever, chills, nausea, vomiting. No history of DVT or PE. She is on baby aspirin otherwise no blood thinner use. - Related Data Home Medications Medication Instructions Recorded Confirmed Albuterol Inhaler [Ventolin Hfa 1 - 2 puff INHALATION RT-Q6H PRN 10/06/19 02/04/23 Inhaler] Atorvastatin [Lipitor] 20 mg PO DAILY 09/26/21 02/04/23 Famotidine [Pepcid] 20 mg PO DAILY 09/26/21 02/04/23 Levothyroxine Sodium [Tirosint] 150 mcg PO HS 09/26/21 02/04/23 Linaclotide [Linzess] 1 tab PO DAILY PRN 02/01/23 02/04/23 Semaglutide [Ozempic] 2 mg SQ DUPONT 02/01/23 02/04/23 Previous Rx's Medication Instructions Recorded HYDROcodone/APAP 5-325MG [[place] 1 tab PO Q6HR PRN #12 tab 02/04/23 5-325] Allergies Allergy/AdvReac Type Severity Reaction Status Date / Time Iodinated Contrast Media AdvReac Severe Anaphylaxis Verified 02/06/23 20:45 [Iodinated Contrast Media - IV Dye] cephalexin monohydrate AdvReac Unknown CAUSED Verified 02/06/23 20:45 [From Keflex] "HOLES" ON HER TONGUE latex AdvReac Unknown Swelling Verified 02/06/23 20:45 of mouth and throat nifedipine [From Procardia] AdvReac Unknown Rash/Hives Verified 02/06/23 20:45 Penicillins AdvReac Unknown Rash/Hives Verified 02/06/23 20:45 Review of Systems ROS Statement: Those systems with pertinent positive or pertinent negative responses have been documented in the HPI. ROS Other: All systems not noted in ROS Statement are negative. Past Medical History Past Medical History: Asthma, Diabetes Mellitus, Hyperlipidemia, Thyroid Disorder Additional Past Medical History / Comment(s): blood in stool, pain rt side of abdomen, hx bowel obstruction, diverticulitis, History of Any Multi-Drug Resistant Organisms: None Reported Past Surgical History: Appendectomy, Bladder Surgery, Breast Surgery, Cholecystectomy, Hysterectomy, Orthopedic Surgery Additional Past Surgical History / Comment(s): BREAST CYSTS. bowel surgery for obstruction Past Anesthesia/Blood Transfusion Reactions: Postoperative Nausea & Vomiting (PONV) Additional Past Anesthesia/Blood Transfusion Reaction / Comment(s): PT ADOPTED. Past Psychological History: No Psychological Hx Reported Smoking Status: Former smoker Past Alcohol Use History: None Reported Past Drug Use History: None Reported - Past Family History Father Family Medical History: Unable to Obtain Additional Family Medical History / Comment(s): PT ADOPTED BUT STATES UNCLE HAD COLON CA AND AUNTS WITH BREAST CA. General Exam Limitations: no limitations General appearance: alert, in no apparent distress Head exam: Present: atraumatic, normocephalic, normal inspection Eye exam: Present: normal appearance, PERRL, EOMI. Absent: scleral icterus, conjunctival injection, periorbital swelling Respiratory exam: Present: normal lung sounds bilaterally. Absent: respiratory distress, wheezes, rales, rhonchi, stridor Cardiovascular Exam: Present: regular rate, normal rhythm, normal heart sounds. Absent: systolic murmur, diastolic murmur, rubs, gallop, clicks Extremities exam: Present: other (right knee surgical incisions visualized without surrounding erythema, swelling, drainage. 3 by 2 cm hematoma to proximal aguilar just below knee.Mild edema of calf, no calf tenderness. DP 2+. Sensation intact. Full ROM ) Neurological exam: Present: alert, oriented X3, CN II-XII intact Psychiatric exam: Present: normal affect, normal mood Skin exam: Present: warm, dry, intact, normal color. Absent: rash Course Vital Signs 02/06/23 02/06/23 20:45 21:58 Temperature 98.6 F 98.0 F Pulse Rate 78 87 Respiratory 16 16 Rate Blood Pressure 106/71 111/75 O2 Sat by Pulse 97 97 Oximetry Medical Decision Making - Medical Decision Making Was pt. sent in by a medical professional or institution (WILLIAM Keita, CELL EFFICIENCY SUPERVISOR, urgent care, hospital, or correction...) When possible be specific @ -No Did you speak to anyone other than the patient for history (EMS, parent, family, police, friend...)? What history was obtained from this source @ -No Did you review nursing and triage notes (agree or disagree)? Why? @ -I reviewed and agree with nursing and triage notes Were old charts reviewed (outside hosp., previous admission, EMS record, old EKG, old radiological studies, urgent care reports/EKG's, correction records)? Report findings @ -No old charts were reviewed Differential Diagnosis (chest pain, altered mental status, abdominal pain women, abdominal pain men, vaginal bleeding, weakness, fever, dyspnea, syncope, headache, dizziness, GI bleed, back pain, seizure, CVA, palpatations, mental health)? @ -hematoma, DVT, surgical infection, abscess. This list is not meant to be all inclusive EKG interpreted by me (3pts min.). @ -As above X-rays interpreted by me (1pt min.). @ -None done CT interpreted by me (1pt min.). @ -None done U/S interpreted by me (1pt. min.). @ -No. Report negative for DVT What testing was considered but not performed or refused? (CT, X-rays, U/S, labs)? Why? @ -None What meds were considered but not given or refused? Why? @ -None Did you discuss the management of the patient with other professionals (professionals i.e. WILLIAM Keita, CELL EFFICIENCY SUPERVISOR, lab, RT, psych nurse, transition social worker, obedience trainer, teacher, fire information officer, patient case manager)? Give summary @ -No Was smoking cessation discussed for >3mins.? @ -No Was critical care preformed (if so, how long)? @ -No Were there social determinants of health that impacted care today? How? ( Homelessness, low income, unemployed, alcoholism, drug addiction, transportation, low edu. Level, literacy, decrease access to med. care, custodial, rehab)? @ -No Was there de-escalation of care discussed even if they declined (Discuss DNR or withdrawal of care, Hospice)? DNR status @ -No What co-morbidities impacted this encounter? (DM, HTN, Smoking, COPD, CAD, Cancer, CVA, ARF, Chemo, Hep., AIDS, mental health diagnosis, sleep apnea, morbid obesity)? @ -None Was patient admitted / discharged? Hospital course, mention meds given and route, prescriptions, significant lab abnormalities, going to OR and other pertinent info. @ -Patient presenting with small hematoma after right knee surgery. Patient does have some mild calf swelling DVT was ruled out on ultrasound. The hematoma was wrapped in sylvie bandage we discussed ice and elevation at home. Patient discharged she will follow up with Dr. Mcneill. Undiagnosed new problem with uncertain prognosis? @ -No Drug Therapy requiring intensive monitoring for toxicity (Heparin, Nitro, Insulin, Cardizem)? @ -No Were any procedures done? @ -[No] Diagnosis/symptom? @ -hematoma Acute, or Chronic, or Acute on Chronic? @ -acute Uncomplicated (without systemic symptoms) or Complicated (systemic symptoms)? @ -uncomplicated Side effects of treatment? @ -[No] Exacerbation, Progression, or Severe Exacerbation? @ -[No] Poses a threat to life or bodily function? How? (Chest pain, [place], [place], pneumonia, PE, COPD, DKA, ARF, appy, cholecystitis, CVA, Diverticulitis, Homicidal, Suicidal, threat to staff... and all critical care pts) @ -[No] Dr. Toussaint is my attending Disposition Clinical Impression: Hematoma Disposition: HOME SELF-CARE Condition: Good Instructions (If sedation given, give patient instructions): Hematoma (ED) Additional Instructions: Elevate extremity. Apply cold compress and keep sylvie bandage on until improvement of symptoms. Follow up with credit operations specialist in 1-2 days. Return to the emergency department if you experience new, worsening, or concerning symptoms. Is patient prescribed a controlled substance at d/c from ED?: No Referrals: Tyler Sparks MD [Primary Care Provider] - 1-2 days
[2023-02-06 22:03] VITALS: BP 111/75; PULSE 87; TEMP 98
== END 2023-02-06 22:02 | disposition home or self-care (01) ==
LOC: EC 20:36
DX: L76.32 Postprocedural hematoma of skin and subcutaneous tissue following other procedure (principal); E11.9 Type 2 diabetes mellitus without complications; J45.909 Unspecified asthma, uncomplicated; E78.5 Hyperlipidemia, unspecified; E07.9 Disorder of thyroid, unspecified; Z87.891 Personal history of nicotine dependence; Z88.0 Allergy status to penicillin; Z88.1 Allergy status to other antibiotic agents; Z91.040 Latex allergy status; Z91.041 Radiographic dye allergy status; Z88.8 Allergy status to other drugs, medicaments and biological substances; Z79.890 Hormone replacement therapy; Z79.84 Long term (current) use of oral hypoglycemic drugs; Z79.899 Other long term (current) drug therapy
CPT/HCPCS: 99284

== ENCOUNTER 2023-05-22 08:06 | Emergency (ER) | payer BC ==
[2023-05-22] MEDS ORDERED: SODIUM CHLORIDE 0.9% 1,000 ML IV STA (08:23)
[2023-05-22] MEDS ORDERED: SODIUM CHLORIDE 0.9% 500 ML 500 ML IV STA (08:23)
--- NOTE | 2023-05-22 08:27 | ED ---
Abdominal Pain HPI - General Chief Complaint: Abdominal Pain Stated Complaint: abd/back pain Time Seen by Provider: 05/22/23 08:19 Source: patient, RN notes reviewed Mode of arrival: ambulatory Limitations: no limitations - History of Present Illness Initial Comments: This a 52-year-old female presents emergency Department chief complaint of abdominal pain. Patient states has been present for last 4-5 days. Patient's felt like she had a urinary tract infection so she presents to the urgent care who ran a urinalysis with no acute findings. Patient was given Zofran and sent emergency Department for further evaluation. She does not that she's had multiple surgeries including resection, appendectomy, hysterectomy and bladder sling. Patient states that she's had bowel obstruction has. Patient states that she usually is constipated and has not had a bowel movement 2 days. She admits to nausea without vomiting reported chills by , no reported fever. Denies chest pain shortness breath. Patient states that she has some lower back discomfort. - Related Data Home Medications Medication Instructions Recorded Confirmed Albuterol Inhaler [Ventolin Hfa 1 - 2 puff INHALATION RT-Q6H PRN 10/06/1902/04 Inhaler] Atorvastatin [Lipitor] 20 mg PO DAILY 09/26/21 02/04/23 Famotidine [Pepcid] 20 mg PO DAILY 09/26/21 02/04/23 Levothyroxine Sodium [Tirosint] 150 mcg PO HS 09/26/21 02/04/23 Linaclotide [Linzess] 1 tab PO DAILY PRN 02/01/23 02/04/23 Semaglutide [Ozempic] 2 mg SQ DUPONT 02/01/23 02/04/23 Previous Rx's Medication Instructions Recorded HYDROcodone/APAP 5-325MG [[place] 1 tab PO Q6HR PRN #12 tab 02/04/23 5-325] Dicyclomine [Bentyl] 20 mg PO TID #30 tablet 05/22/23 Ondansetron Odt [Zofran Odt] 4 mg PO Q8HR PRN #10 tab 05/22/23 Allergies Allergy/AdvReac Type Severity Reaction Status Date / Time Iodinated Contrast Media AdvReac Severe Anaphylaxis Verified 05/22/23 08:14 [Iodinated Contrast Media - IV Dye] cephalexin monohydrate AdvReac Unknown CAUSED Verified 05/22/23 08:14 [From Keflex] "HOLES" ON HER TONGUE latex AdvReac Unknown Swelling Verified 05/22/23 08:14 of mouth and throat nifedipine [From Procardia] AdvReac Unknown Rash/Hives Verified 05/22/23 08:14 Penicillins AdvReac Unknown Rash/Hives Verified 05/22/23 08:14 Review of Systems ROS Statement: Those systems with pertinent positive or pertinent negative responses have been documented in the HPI. ROS Other: All systems not noted in ROS Statement are negative. Past Medical History Past Medical History: Asthma, Diabetes Mellitus, Hyperlipidemia, Thyroid Disorder Additional Past Medical History / Comment(s): blood in stool, pain rt side of abdomen, hx bowel obstruction, diverticulitis, History of Any Multi-Drug Resistant Organisms: None Reported Past Surgical History: Appendectomy, Bladder Surgery, Breast Surgery, Cholecystectomy, Hysterectomy, Orthopedic Surgery Additional Past Surgical History / Comment(s): BREAST CYSTS. bowel surgery for obstruction Past Anesthesia/Blood Transfusion Reactions: Postoperative Nausea & Vomiting (PONV) Additional Past Anesthesia/Blood Transfusion Reaction / Comment(s): PT ADOPTED. Past Psychological History: No Psychological Hx Reported Smoking Status: Former smoker Past Alcohol Use History: None Reported Past Drug Use History: None Reported - Past Family History Father Family Medical History: Unable to Obtain Additional Family Medical History / Comment(s): PT ADOPTED BUT STATES UNCLE HAD COLON CA AND AUNTS WITH BREAST CA. General Exam Limitations: no limitations General appearance: alert, in no apparent distress Head exam: Present: atraumatic, normocephalic, normal inspection Eye exam: Present: normal appearance, PERRL, EOMI. Absent: scleral icterus, conjunctival injection, periorbital swelling ENT exam: Present: normal exam, mucous membranes moist Neck exam: Present: normal inspection, full ROM. Absent: tenderness, mening ismus, lymphadenopathy Respiratory exam: Present: normal lung sounds bilaterally. Absent: respiratory distress, wheezes, rales, rhonchi, stridor Cardiovascular Exam: Present: regular rate, normal rhythm, normal heart sounds. Absent: systolic murmur, diastolic murmur, rubs, gallop, clicks GI/Abdominal exam: Present: soft, tenderness, normal bowel sounds. Absent: distended, guarding, rebound, rigid Back exam: Absent: CVA tenderness (R), CVA tenderness (L) Neurological exam: Present: alert Skin exam: Present: warm, dry, intact, normal color. Absent: rash Course Vital Signs 05/22/23 08:12 Temperature 98.2 F Pulse Rate 80 Respiratory 20 Rate Blood Pressure 122/83 O2 Sat by Pulse 98 Oximetry Medical Decision Making - Medical Decision Making Was pt. sent in by a medical professional or institution (WILLIMA Keita, PATCH DRILLER, urgent care, hospital, or usp...) When possible be specific @ -Urgent care Did you speak to anyone other than the patient for history (EMS, parent, family, police, friend...)? What history was obtained from this source @ -No Did you review nursing and triage notes (agree or disagree)? Why? @ -I reviewed and agree with nursing and triage notes Were old charts reviewed (outside hosp., previous admission, EMS record, old EKG, old radiological studies, urgent care reports/EKG's, usp records)? Report findings @ -Urinalysis from urgent care Differential Diagnosis (chest pain, altered mental status, abdominal pain women, abdominal pain men, vaginal bleeding, weakness, fever, dyspnea, syncope, headache, dizziness, GI bleed, back pain, seizure, CVA, palpatations, mental health, musculoskeletal)? @ -Differential Abdominal Pain Women: Appendicitis, Cholecystitis, diverticulosis, ischemic bowel, pancreatitis, hepatitis, UTI, gastroenteritis, AAA, incarcerated hernia, bowel obstruction, constipation, inflammatory bowel, hepatitis, peptic ulcer disease, splenic infarction, perforated viscus, vulvitis, ovarian torsion, PID, kidney stone, placenta abruption, this is not meant to be an all-inclusive listable EKG interpreted by me (3pts min.). @ -None X-rays interpreted by me (1pt min.). @ -None done CT interpreted by me (1pt min.). @ -CT abdomen and pelvis shows no acute intra- abdominal process. U/S interpreted by me (1pt. min.). @ -None done What testing was considered but not performed or refused? (CT, X-rays, U/S, labs)? Why? @ -None What meds were considered but not given or refused? Why? @ -None Did you discuss the management of the patient with other professionals (professionals i.e. WILLIAM Keita, PATCH DRILLER, lab, RT, psych nurse, neonatal social worker, automatic brine mixer operator, te acher, health promotion officer, case assistant)? Give summary @ -No Was smoking cessation discussed for >3mins.? @ -No Was critical care preformed (if so, how long)? @ -No Were there social determinants of health that impacted care today? How? (Homelessness, low income, unemployed, alcoholism, drug addiction, transportation, low edu. Level, literacy, decrease access to med. care, senior living, rehab)? @ -No Was there de-escalation of care discussed even if they declined (Discuss DNR or withdrawal of care, Hospice)? DNR status @ -No What co-morbidities impacted this encounter? (DM, HTN, Smoking, COPD, CAD, Cancer, CVA, ARF, Chemo, Hep., AIDS, mental health diagnosis, sleep apnea, morbid obesity)? @ -None Was patient admitted / discharged? Hospital course, mention meds given and rou te, prescriptions, significant lab abnormalities, going to OR and other pertinent info. @ -discharged patient's laboratory studies, urinalysis from urgent care and CT showed no acute process. Patient symptoms more likely related to enteritis, viral infection there is no evidence of diverticulitis or acute surgical problem. Patient will continue Hydrea discharged with Zofran, Bentyl Undiagnosed new problem with uncertain prognosis? @ -No Drug Therapy requiring intensive monitoring for toxicity (Heparin, Nitro, Insuli n, Cardizem)? @ -No Were any procedures done? @ -No Diagnosis/symptom? @ -Abdominal pain Acute, or Chronic, or Acute on Chronic? @ -[Acute Uncomplicated (without systemic symptoms) or Complicated (systemic symptoms)? @ -unComplicated Side effects of treatment? @ -No Exacerbation, Progression, or Severe Exacerbation? @ -No Poses a threat to life or bodily function? How? (Chest pain, [place], [place], pneumonia, PE, COPD, DKA, ARF, appy, cholecystitis, CVA, Diverticulitis, Homicidal, Suicidal, threat to staff... and all critical care pts) @ -No - Lab Data Result diagrams: 05/22/23 08:26 05/22/23 08:26 Lab Results 05/22/23 05/22/23 05/22/23 Range/Units 08:26 08: 08:26 WBC 8.2 (3.8-10.6) k/uL RBC 4.53 (3.80-5.40) m/uL Hgb 14.2 (11.4-16.0) gm/dL Hct 40.1 (34.0-46.0) % MCV 88.5 (80.0-100.0) fL MCH 31.2 (25.0-35.0) pg MCHC 35.3 (31.0-37.0) g/dL RDW 13.0 (11.5-15.5) % Plt Count 278 (150-450) k/uL MPV 8.1 Neutrophils % 59 % Lymphocytes % 29 % Monocytes % 6 % Eosinophils % 3 % Basophils % 1 % Neutrophils # 4.8 (1.3-7.7) k/uL Lymphocytes # 2.4 (1.0-4.8) k/uL Monocytes # 0.5 (0-1.0) k/uL Eosinophils # 0.3 (0-0.7) k/uL Basophils # 0.1 (0-0.2) k/uL Sodium 137 (137-145) mmol/L Potassium 4.8 (3.5-5.1) mmol/L Chloride 102 (98-107) mmol/L Carbon Dioxide 24 (22-30) mmol/L Anion Gap 11 mmol/L BUN 23 H (7-17) mg/dL Creatinine 0.80 (0.52-1.04) mg/dL Est GFR (CKD-EPI)AfAm >90 (>60 ml/min/1.73 sqM) Est GFR (CKD-EPI)NonAf 84 (>60 ml/min/1.73 sqM) Glucose 145 H (74-99) mg/dL Plasma Lactic Acid Donovan 0.9 (0.7-2.0) mmol/L Calcium 9.9 (8.4-10.2) mg/dL Total Bilirubin 0.4 (0.2-1.3) mg/dL AST 24 (14-36) U/L ALT 37 H (4-34) U/L Alkaline Phosphatase 97 (38-126) U/L Total Protein 8.1 (6.3-8.2) g/dL Albumin 4.8 (3.5-5.0) g/dL Lipase 83 (23-300) U/L Disposition Clinical Impression: Abdominal pain Disposition: HOME SELF-CARE Condition: Stable Instructions (If sedation given, give patient instructions): Abdominal Pain (ED) Additional Instructions: Please return to the Emergency Department if symptoms worsen or any other concerns. Prescriptions: Dicyclomine [Bentyl] 20 mg PO TID #30 tablet Ondansetron Odt [Zofran Odt] 4 mg PO Q8HR PRN #10 tab PRN Reason: Nausea Is patient prescribed a controlled substance at d/c from ED?: No Referrals: Tyler Sparks MD [Primary Care Provider] - 1-2 days
[2023-05-22 08:48] LABS: Basophils # (A) 0.1 k/uL (0-0.2); Basophils % (A) 1 %; Eosinophils # (A) 0.3 k/uL (0-0.7); Eosinophils % (A) 3 %; HCT 40.1 % (34.0-46.0); HGB 14.2 gm/dL (11.4-16.0); Lymphocytes # (A) 2.4 k/uL (1.0-4.8); Lymphocytes % (A) 29 %; MCH 31.2 pg (25.0-35.0); MCHC 35.3 g/dL (31.0-37.0); MCV 88.5 fL (80.0-100.0); Mean Platelet Volume 8.1; Monocytes # (A) 0.5 k/uL (0-1.0); Monocytes % (A) 6 %; Neutrophils # (A) 4.8 k/uL (1.3-7.7); Neutrophils % (A) 59 %; Platelet Count 278 k/uL (150-450); RBC 4.53 m/uL (3.80-5.40); WBC 8.2 k/uL (3.8-10.6)
[2023-05-22 09:00] LABS: ALT 37 U/L (4-34); AST 24 U/L (14-36); African American GFR (CKD) >90 (>60 ml/min/1.73 sqM); Albumin 4.8 g/dL (3.5-5.0); Alkaline Phosphatase 97 U/L (38-126); Anion Gap 11 mmol/L; Blood Urea Nitrogen 23 mg/dL (7-17); Calcium 9.9 mg/dL (8.4-10.2); Carbon Dioxide 24 mmol/L (22-30); Chloride 102 mmol/L (98-107); Glucose 145 mg/dL (74-99); Lipase 83 U/L (23-300); Non-African American GFR(CKD) 84 (>60 ml/min/1.73 sqM); Potassium 4.8 mmol/L (3.5-5.1); Sodium 137 mmol/L (137-145); Total Bilirubin 0.4 mg/dL (0.2-1.3); Total Protein 8.1 g/dL (6.3-8.2)
--- NOTE | 2023-05-22 09:13 | CT ---
EXAMINATION TYPE: CT abdomen pelvis wo con DATE OF EXAM: 05/22/2023 COMPARISON: 06/11/2022 and 09/16/2010 HISTORY: Abdominal pain Examination of the solid and hollow viscera is limited given the lack of contrast. Unenhanced CT of t he abdomen and pelvis was performed FINDINGS: LUNG BASES: No evidence for nodule. No evidence for infiltrate. LIVER/GB: The gallbladder is surgically absent. Elevated No space-occupying hepatic lesion. PANCREAS: No pancreatic mass identified. No inflammatory process seen. SPLEEN: No evidence for splenomegaly. No intrasplenic lesions seen. ADRENALS: No adrenal nodules identified. No evidence for thickening. KIDNEYS: No evidence for renal mass. No nephrolithiasis. No hydronephrosis. BOWEL: Appendectomy changes noted. No evidence of bowel obstruction. No inflammatory process. Lymph nodes: No evidence for adenopathy greater than 1 cm. Abdominal aorta: Atheromatous changes seen. No evidence for aneurysm. Genital organs: No significant abnormality. Other: Subcutaneous soft tissue mass lateral left thigh measures 2.7 cm and was present dating back 2009 and is presumed benign. IMPRESSION: NO ACUTE INTRA-ABDOMINAL PROCESS APPRECIATED.
[2023-05-22 09:46] VITALS: BP 124/80; PULSE 78; RESP 6; TEMP 97.9
== END 2023-05-22 09:46 | disposition home or self-care (01) ==
LOC: EC 08:06
DX: R10.9 Unspecified abdominal pain (principal); J45.909 Unspecified asthma, uncomplicated; E11.9 Type 2 diabetes mellitus without complications; E78.5 Hyperlipidemia, unspecified; E07.9 Disorder of thyroid, unspecified; Z87.891 Personal history of nicotine dependence; Z88.0 Allergy status to penicillin; Z88.1 Allergy status to other antibiotic agents; Z88.8 Allergy status to other drugs, medicaments and biological substances; Z91.040 Latex allergy status; Z91.041 Radiographic dye allergy status; Z90.49 Acquired absence of other specified parts of digestive tract; Z79.890 Hormone replacement therapy; Z79.899 Other long term (current) drug therapy; Z79.84 Long term (current) use of oral hypoglycemic drugs
CPT/HCPCS: 36415; 74176; 80053; 83605; 83690; 85025; 96360; 99284

== ENCOUNTER → 2023-10-13 | Outpatient (CLI) | payer BC ==
--- NOTE | 2023-10-14 12:18 | US ---
EXAMINATION TYPE: US pelvic complete DATE OF EXAM: 10/13/2023 COMPARISON: 05/22/2023. CLINICAL INDICATION: Female, 53 years old with history of R10.2 PELVIC AND PERINEAL PAIN; Patient sta chely THOAMS wants to assess bladder to "see if bladder suspension flipped", patient declined transvaginal US at this time, but opted for transabdominal evaluation TECHNIQUE: Transabdominal (TA). Transabdominal sonographic images of the pelvis were acquired. Date of LMP: ae 35, hysterectomy EXAM MEASUREMENTS: Uterus: Surgically absent Endometrial Stripe: Surgically absent Right Ovary: not visualized Left Ovary: not visualized 1. Uterus: Surgically absent 2. Endometrium: Surgically absent 3. Right Ovary: Obscured by overlying bowel gas 4. Left Ovary: Obscured by overlying bowel gas 5. Bilateral Adnexa: Obscured by overlying bowel gas 6. Posterior cul-de-sac: wnl bladder images obtained no discrete abnormality appreciated IMPRESSION: No evidence for acute process. Bladder suspension not well appreciated. No suspicious mass.
== END | disposition home or self-care (01) ==
LOC: RADUSWWP 16:52
PROVIDERS: ATTEND Family Medicine
DX: R10.2 Pelvic and perineal pain (principal)
CPT/HCPCS: 76856

== ENCOUNTER → 2023-10-21 | Outpatient (CLI) | payer BC ==
[2023-10-21 14:51] LABS: ALT 14 U/L (8-44); AST 14 U/L (13-35); Albumin 4.7 g/dL (3.8-4.9); Albumin/Globulin Ratio 1.52 Ratio (1.60-3.17); Alkaline Phosphatase 107 U/L (41-126); Blood Urea Nitrogen 14.8 mg/dL (9.0-27.0); Calcium 10.4 mg/dL (8.7-10.3); Chloride 103 mmol/L (96-109); Chol/HDL Ratio 3.12 Ratio; Creatine Kinase 49 U/L (26-186); Globulin 3.1 g/dL (1.6-3.3); Glucose 131 mg/dL (70-110); Potassium 4.7 mmol/L (3.5-5.5); Sodium 138 mmol/L (135-145); T4, Free (Free Thyroxine) 1.43 ng/dL (0.80-1.80); Total Bilirubin 0.3 mg/dL (0.3-1.2); Total Protein 7.8 g/dL (6.2-8.2)
[2023-10-21 16:31] LABS: Basophils # (A) 0.08 X 10*3/uL (0.00-0.10); Eosinophils # (A) 0.19 X 10*3/uL (0.04-0.35); Eosinophils % (A) 2.4 %; HCT 41.9 % (37.2-46.3); HGB 14.3 g/dL (12.0-15.0); Lymphocytes # (A) 2.82 X 10*3/uL (0.90-5.00); Lymphocytes % (A) 35.3 %; MCH 30.2 pg (27.0-32.0); MCHC 34.1 g/dL (32.0-37.0); MCV 88.6 FL (80.0-97.0); Mean Platelet Volume 10.4 FL (9.5-12.2); Monocytes # (A) 0.55 X 10*3/uL (0.20-1.00); Monocytes % (A) 6.9 %; NRBC Per 100 WBC 0 X 10*3/uL (0.00-0.01); Neutrophils # (A) 4.33 X 10*3/uL (1.80-7.70); Platelet Count 297 X 10*3/uL (140-440); RBC 4.73 X 10*6/uL (4.10-5.20); RDW 12.5 % (11.5-14.5)
== END | disposition home or self-care (01) ==
LOC: LABWHC1 11:41
PROVIDERS: ATTEND Nurse Practitioner Adult Health
DX: Z00.00 Encounter for general adult medical examination without abnormal findings (principal); E78.5 Hyperlipidemia, unspecified; E03.9 Hypothyroidism, unspecified
CPT/HCPCS: 36415; 80053; 80061; 82550; 84439; 84443; 85025

== ENCOUNTER 2023-11-01 17:43 | Emergency (ER) | payer BC ==
--- NOTE | 2023-11-01 18:05 | ED ---
General Adult HPI - General Source: patient Mode of arrival: ambulatory Limitations: no limitations <EamJumana - Last Filed: 11/01/23 18:04> <Coco Urbina - Last Filed: 11/01/23 23:56> - General Stated complaint: Thrush,Weakness Time Seen by Provider: 11/01/23 18:04 - History of Present Illness Initial comments: Patient is a 53 yr old female who presents to the emergency room complaints of worsening cough and shortness breath the last 2 weeks. Patient states that every time she goes to talk her E she starts to cough. Diagnosed with thrush recently. Denies hemoptysis (Jumana Boo) 53-year-old female presents to the emergency department for evaluation of throat irritation and cough 2 weeks. Patient reports that the cough is worse when she talks. She denies significant shortness of breath with this. Denies chest pain, sputum production. Patient reports that she was recently on 2 courses of antibiotics for otitis media and therefore developed oral thrush. She was on nystatin swish and swallow with minimal relief. She reports that shortly after this she developed this throat irritation and cough. She denies recent fever, chills. Denies hemoptysis. She does have a history of GERD for which she takes Pepcid. (Coco Urbina) - Related Data Home Medications Medication Instructions Recorded Confirmed Albuterol Inhaler [Ventolin Hfa 1 - 2 puff INHALATION RT-Q6H PRN 10/06/19 02/04/23 Inhaler] Atorvastatin [Lipitor] 20 mg PO DAILY 09/26/21 02/04/23 Famotidine [Pepcid] 20 mg PO DAILY 09/26/21 02/04/23 Levothyroxine Sodium [Tirosint] 150 mcg PO HS 09/26/21 02/04/23 Linaclotide [Linzess] 1 tab PO DAILY PRN 02/01/23 02/04/23 Semaglutide [Ozempic] 2 mg SQ DUPONT 02/01/23 02/04/23 Previous Rx's Medication Instructions Recorded HYDROcodone/APAP 5-325MG [[place] 1 tab PO Q6HR PRN #12 tab 02/04/23 5-325] Dicyclomine [Bentyl] 20 mg PO TID #30 tablet 05/22/23 Ondansetron Odt [Zofran Odt] 4 mg PO Q8HR PRN #10 tab 05/22/23 Benzonatate [Tessalon Perles] 100 mg PO TID PRN #15 capsule 11/01/23 Fluconazole [Diflucan] 100 mg PO DAILY #14 tab 11/01/23 Allergies Allergy/AdvReac Type Severity Reaction Status Date / Time Iodinated Contrast Media AdvReac Severe Anaphylaxis Verified 11/01/23 18:04 [Iodinated Contrast Media - IV Dye] cephalexin monohydrate AdvReac Unknown CAUSED Verified 11/01/23 18:04 [From Keflex] "HOLES" ON HER TONGUE latex AdvReac Unknown Swelling Verified 11/01/23 18:04 of mouth and throat nifedipine [From Procardia] AdvReac Unknown Rash/Hives Verified 11/01/23 18:04 Penicillins AdvReac Unknown Rash/Hives Verified 11/01/23 18:04 Review of Systems ROS Other: All systems not noted in ROS Statement are negative. <Jumana Boo - Last Filed: 11/01/23 18:04> ROS Other: All systems not noted in ROS Statement are negative. <Coco Urbina - Last Filed: 11/01/23 23:56> ROS Statement: Those systems with pertinent positive or pertinent negative responses have been documented in the HPI. Past Medical History Past Medical History: Asthma, Diabetes Mellitus, Hyperlipidemia, Thyroid Disorder Additional Past Medical History / Comment(s): blood in stool, pain rt side of abdomen, hx bowel obstruction, diverticulitis, History of Any Multi-Drug Resistant Organisms: None Reported Past Surgical History: Appendectomy, Bladder Surgery, Breast Surgery, Cholecystectomy, Hysterectomy, Orthopedic Surgery Additional Past Surgical History / Comment(s): BREAST CYSTS. bowel surgery for obstruction Past Anesthesia/Blood Transfusion Reactions: Postoperative Nausea & Vomiting (PONV) Additional Past Anesthesia/Blood Transfusion Reaction / Comment(s): PT ADOPTED. Past Psychological History: No Psychological Hx Reported Smoking Status: Former smoker Past Alcohol Use History: None Reported Past Drug Use History: None Reported - Past Family History Father Family Medical History: Unable to Obtain Additional Family Medical History / Comment(s): PT ADOPTED BUT STATES UNCLE HAD COLON CA AND AUNTS WITH BREAST CA. <Jumana Boo - Last Filed: 11/01/23 18:04> General Exam Limitations: no limitations <Jumana Boo - Last Filed: 11/01/23 18:04> Limitations: no limitations General appearance: alert, in no apparent distress Head exam: Present: atraumatic, normocephalic, normal inspection Eye exam: Present: normal appearance, PERRL, EOMI. Absent: scleral icterus, conjunctival injection, periorbital swelling ENT exam: Present: mucous membranes moist, TM's normal bilaterally, normal external ear exam, other. Absent: normal oropharynx (Slightly erythematous oropharynx) Neck exam: Present: normal inspection. Absent: tenderness, meningismus, lymphadenopathy Respiratory exam: Present: normal lung sounds bilaterally. Absent: respiratory distress, wheezes, rales, rhonchi, stridor Cardiovascular Exam: Present: regular rate, normal rhythm, normal heart sounds. Absent: systolic murmur, diastolic murmur, rubs, gallop, clicks GI/Abdominal exam: Present: soft, normal bowel sounds. Absent: distended, tenderness, guarding, rebound, rigid Extremities exam: Present: normal inspection, full ROM, normal capillary refill. Absent: tenderness, pedal edema, joint swelling, calf tenderness Back exam: Present: normal inspection Neurological exam: Present: alert, oriented X3 Psychiatric exam: Present: normal affect, normal mood Skin exam: Present: warm, dry, intact, normal color. Absent: rash <Coco Urbina - Last Filed: 11/01/23 23:56> - General Exam Comments Initial Comments: Visual Physical Exam Vital signs reviewed General: Well-appearing, nontoxic, no acute distress. Head: Normocephalic, atraumatic Eyes: PERRLA, EOMI ENT: Airway patent Chest: Nonlabored breathing Skin: No visual rash, normal skin tone Neuro: Alert and oriented 3 Musculoskeletal: No gross abnormalities (Jumana Boo) Course Vital Signs 11/01/23 11/01/23 11/01/23 18:02 22:22 22:24 Temperature 98.7 F 98.6 F Pulse Rate 96 88 Respiratory 22 18 18 Rate Blood Pressure 143/88 118/96 O2 Sat by Pulse 99 98 Oximetry Medical Decision Making <Jumana Boo - Last Filed: 11/01/23 18:04> <Coco Urbina - Last Filed: 11/01/23 23:56> - Medical Decision Making Quick note portion completed by myself, electronically signed LUCI Vidal. (Jumana Boo) Was pt. sent in by a medical professional or institution (WILLIAM Keita, BRAKE ASSEMBLER, urgent care, hospital, or senior living...) When possible be specific @ -No Did you speak to anyone other than the patient for history (EMS, parent, family, police, friend...)? What history was obtained from this source @ -No Did you review nursing and triage notes (agree or disagree)? Why? @ -I reviewed and agree with nursing and triage notes Were old charts reviewed (outside hosp., previous admission, EMS record, old EKG, old radiological studies, urgent care reports/EKG's, senior living records)? Report findings @ -No old charts were reviewed Differential Diagnosis (chest pain, altered mental status, abdominal pain women, abdominal pain men, vaginal bleeding, weakness, fever, dyspnea, syncope, headach e, dizziness, GI bleed, back pain, seizure, CVA, palpatations, mental health, musculoskeletal)? @ -Pneumonia, GERD, esophageal candidiasis, this is an all-inclusive EKG interpreted by me (3pts min.). @ -None X-rays interpreted by me (1pt min.). @ -Chest x-ray shows no acute infiltrate CT interpreted by me (1pt min.). @ -None done U/S interpreted by me (1pt. min.). @ -None done What testing was considered but not performed or refused? (CT, X-rays, U/S, labs)? Why? @ -None What meds were considered but not given or refused? Why? @ -None Did you discuss the management of the patient with other professionals (professionals i.e. WILLIAM Keita, BRAKE ASSEMBLER, lab, RT, psych nurse, social science manager, training personnel supervisor, teacher, engineering officer, showcase trimmer)? Give summary @ -No Was smoking cessation discussed for >3mins.? @ -No Was critical care preformed (if so, how long)? @ -No Were there social determinants of health that impacted care today? How? (Homelessness, low income, unemployed, alcoholism, drug addiction, transportation, low edu. Level, literacy, decrease access to med. care, longterm, rehab)? @ -No Was there de-escalation of care discussed even if they declined (Discuss DNR or withdrawal of care, Hospice)? DNR status @ -No What co-morbidities impacted this encounter? (DM, HTN, Smoking, COPD, CAD, Cancer, CVA, ARF, Chemo, Hep., AIDS, mental health diagnosis, sleep apnea, morbid obesity)? @ -None Was patient admitted / discharged? Hospital course, mention meds given and route, prescriptions, significant lab abnormalities, going to OR and other pertinent info. @ -Charge. Patient presented to the emergency department for evaluation of persistent cough 2 weeks. Chest x-ray obtained which shows no acute infiltrate. Covid, as well as a, RSV negative. She does report a recent history of thrush and she reports that she continues to have overgrowth on her tongue. Patient will be treated with oral fluconazole and given prescription for benzonatate for cough. Patient advised to follow-up with ENT. She reports that she has an appointment scheduled for Wednesday for ENT. Patient understanding the above plan. Patient stable at time of discharge. Case discussed with Dr. Marrufo. Undiagnosed new problem with uncertain prognosis? @ -No Drug Therapy requiring intensive monitoring for toxicity (Heparin, Nitro, Insulin, Cardizem)? @ -No Were any procedures done? @ -No Diagnosis/symptom? @ -oral candidiasis Acute, or Chronic, or Acute on Chronic? @ -acute Uncomplicated (without systemic symptoms) or Complicated (systemic symptoms)? @ -uncomplicated Side effects of treatment? @ -No Exacerbation, Progression, or Severe Exacerbation? @ -No Poses a threat to life or bodily function? How? (Chest pain, [place], [place], pneumonia, PE, COPD, DKA, ARF, appy, cholecystitis, CVA, Diverticulitis, Homicidal, Suicidal, threat to staff... and all critical care pts) @ -No (Coco Urbina) - Lab Data Lab Results 11/01/23 Range/Units 18:04 Influenza Type A (PCR) Not Detected (Not Detectd) Influenza Type B (PCR) Not Detected (Not Detectd) RSV (PCR) Not Detected (Not Detectd) SARS-CoV-2 (PCR) Not Detected (Not Detectd) Disposition <Jumana Boo - Last Filed: 11/01/23 18:04> Is patient prescribed a controlled substance at d/c from ED?: No <Coco Urbina - Last Filed: 11/01/23 23:56> Clinical Impression: Oral candidiasis, Cough Disposition: HOME SELF-CARE Condition: Stable Instructions (If sedation given, give patient instructions): Oral Candidiasis (ED) Additional Instructions: Please follow up with ENT as scheduled on Wednesday. Return to the emergency department for new or worsening symptoms. Prescriptions: Fluconazole [Diflucan] 100 mg PO DAILY #14 tab Benzonatate [Tessalon Perles] 100 mg PO TID PRN #15 capsule PRN Reason: Cough Referrals: Tyler Sparks MD [Primary Care Provider] - 1-2 days
--- NOTE | 2023-11-01 18:34 | XR ---
EXAMINATION TYPE: XR chest 2V DATE OF EXAM: 11/01/2023 COMPARISON: 01/20/2023 HISTORY: Presurgical exam TECHNIQUE: Frontal and lateral views of the chest are obtained. FINDINGS: There is no focal air space opacity, pleural effusion, or pneumothorax seen. The cardiac silhouette size is within normal limits. The osseous structures are intact. IMPRESSION: No acute cardiopulmonary process.
[2023-11-01 22:26] VITALS: BP 118/96; PULSE 88; RESP 18; TEMP 98.6
== END 2023-11-01 22:36 | disposition home or self-care (01) ==
LOC: EC 17:43
DX: B37.0 Candidal stomatitis (principal); R05.9 Cough, unspecified; E11.9 Type 2 diabetes mellitus without complications; J45.909 Unspecified asthma, uncomplicated; E07.9 Disorder of thyroid, unspecified; E78.5 Hyperlipidemia, unspecified; Z20.822 Contact with and (suspected) exposure to COVID-19; Z79.890 Hormone replacement therapy; Z79.85 Long-term (current) use of injectable non-insulin antidiabetic drugs; Z79.899 Other long term (current) drug therapy; Z88.0 Allergy status to penicillin; Z88.1 Allergy status to other antibiotic agents; Z91.040 Latex allergy status; Z91.041 Radiographic dye allergy status; Z88.8 Allergy status to other drugs, medicaments and biological substances
CPT/HCPCS: 71046; 87636; 99285

== ENCOUNTER 2023-11-06 20:18 | Emergency (ER) | payer BC ==
[2023-11-06 20:41] VITALS: TEMP 98.1
[2023-11-06] MEDS ORDERED: PANTOPRAZOLE 40 MG/10 ML VIAL IVP STA (21:42)
[2023-11-06] MEDS ORDERED: IPRATROPIUM-ALBUTEROL 3 ML NEB INHALATION STA (21:43)
[2023-11-06] MEDS ORDERED: MORPHINE SULFATE 2 MG/ML SYRINGE IVP STA ×2 (21:43→23:12)
--- NOTE | 2023-11-06 21:44 | ED ---
General Adult HPI - General Chief complaint: Upper Respiratory Infection Stated complaint: Cough, SOB Time Seen by Provider: 11/06/23 21:06 Source: patient, RN notes reviewed, old records reviewed Mode of arrival: ambulatory Limitations: no limitations - History of Present Illness Initial comments: 53-year-old female with 1 month history of cough states that she was driving, stopped at a light and felt the sensation that her throat was "closing". She had a coughing spell which has been persistent since this time. She has been seen by ENT and was told that her vocal cords were somewhat erythematous and is scheduled for further evaluation. She has no prior history of cardiac disease. She does report some symptoms consistent with gastric reflux. - Related Data Home Medications Medication Instructions Recorded Confirmed Albuterol Inhaler [Ventolin Hfa 1 - 2 puff INHALATION RT-Q6H PRN 10/06/19 02/04/23 Inhaler] Atorvastatin [Lipitor] 20 mg PO DAILY 09/26/21 02/04/23 Famotidine [Pepcid] 20 mg PO DAILY 09/26/21 02/04/23 Levothyroxine Sodium [Tirosint] 150 mcg PO HS 09/26/21 02/04/23 Linaclotide [Linzess] 1 tab PO DAILY PRN 02/01/23 02/04/23 Semaglutide [Ozempic] 2 mg SQ DUPONT 02/01/23 02/04/23 Previous Rx's Medication Instructions Recorded HYDROcodone/APAP 5-325MG [Frazee 1 tab PO Q6HR PRN #12 tab 02/04/23 5-325] Dicyclomine [Bentyl] 20 mg PO TID #30 tablet 05/22/23 Ondansetron Odt [Zofran Odt] 4 mg PO Q8HR PRN #10 tab 05/22/23 Benzonatate [Tessalon Perles] 100 mg PO TID PRN #15 capsule 11/01/23 Fluconazole [Diflucan] 100 mg PO DAILY #14 tab 11/01/23 Omeprazole [PriLOSEC] 20 mg PO AC-BID 30 Days #60 cap 11/06/23 Promethazine HCl/Codeine 5 ml PO Q8HR PRN #120 ml 11/06/23 [Promethazine HCl/Codeine Syrup] Allergies Allergy/AdvReac Type Severity Reaction Status Date / Time Iodinated Contrast Media AdvReac Severe Anaphylaxis Verified 11/06/23 20:23 [Iodinated Contrast Media - IV Dye] cephalexin monohydrate AdvReac Unknown CAUSED Verified 11/06/23 20:23 [From Keflex] "HOLES" ON HER TONGUE latex AdvReac Unknown Swelling Verified 11/06/23 20:23 of mouth and throat nifedipine [From Procardia] AdvReac Unknown Rash/Hives Verified 11/06/23 20:23 Penicillins AdvReac Unknown Rash/Hives Verified 11/06/23 20:23 Review of Systems ROS Statement: Those systems with pertinent positive or pertinent negative responses have been documented in the HPI. ROS Other: All systems not noted in ROS Statement are negative. Past Medical History Past Medical History: Asthma, Diabetes Mellitus, Hyperlipidemia, Thyroid Disorder Additional Past Medical History / Comment(s): blood in stool, pain rt side of abdomen, hx bowel obstruction, diverticulitis, History of Any Multi-Drug Resistant Organisms: None Reported Past Surgical History: Appendectomy, Bladder Surgery, Breast Surgery, Ch olecystectomy, Hysterectomy, Orthopedic Surgery Additional Past Surgical History / Comment(s): BREAST CYSTS. bowel surgery for obstruction Past Anesthesia/Blood Transfusion Reactions: Postoperative Nausea & Vomiting (PONV) Additional Past Anesthesia/Blood Transfusion Reaction / Comment(s): PT ADOPTED. Past Psychological History: No Psychological Hx Reported Smoking Status: Former smoker Past Alcohol Use History: None Reported Past Drug Use History: None Reported - Past Family History Father Family Medical History: Unable to Obtain Additional Family Medical History / Comment(s): PT ADOPTED BUT STATES UNCLE HAD COLON CA AND AUNTS WITH BREAST CA. General Exam Limitations: no limitations General appearance: alert, in no apparent distress Head exam: Present: atraumatic, normocephalic Eye exam: Present: normal appearance, PERRL ENT exam: Present: normal exam. Absent: normal oropharynx (Mild pharyngeal erythema, no soft tissue swelling.) Neck exam: Present: normal inspection. Absent: tenderness, lymphadenopathy, thyromegaly Respiratory exam: Present: normal lung sounds bilaterally. Absent: respiratory distress, wheezes, rales Cardiovascular Exam: Present: regular rate, normal rhythm GI/Abdominal exam: Present: soft. Absent: distended, tenderness, guarding Extremities exam: Present: normal inspection, normal capillary refill. Absent: pedal edema Neurological exam: Present: alert, oriented X3, CN II-XII intact Psychiatric exam: Present: normal affect, normal mood Skin exam: Present: warm, dry, intact. Absent: cyanosis, diaphoretic Course Vital Signs 11/06/23 11/06/23 11/06/23 20:21 20:33 22:36 Temperature 98.1 F Pulse Rate 120 H 75 Respiratory 137 H 24 Rate O2 Sat by Pulse 98 Oximetry 11/06/23 22:42 Temperature Pulse Rate 77 Respiratory Rate O2 Sat by Pulse Oximetry Medical Decision Making - Medical Decision Making Was pt. sent in by a medical professional or institution (, WILLIAM, TELEPHONE SURVEYOR, urgent care, hospital, or [facility]...) When possible be specific @ -No Did you speak to anyone other than the patient for history (EMS, parent, family, police, friend...)? What history was obtained from this source @ -No Did you review nursing and triage notes (agree or disagree)? Why? @ -I reviewed and agree with nursing and triage notes Were old charts reviewed (outside hosp., previous admission, EMS record, old EKG, old radiological studies, urgent care reports/EKG's, [facility] records)? Report findings @ -No old charts were reviewed Differential Diagnosis (chest pain, altered mental status, abdominal pain women, abdominal pain men, vaginal bleeding, weakness, fever, dyspnea, syncope, headache, dizziness, GI bleed, back pain, seizure, CVA, palpatations, mental health, musculoskeletal)? @ -Not applicable EKG interpreted by me (3pts min.). @ -[EKG: Sinus rhythm with rate of 86, AK interval 147, QRS duration 93, QTc [address] segment elevation. X-rays interpreted by me (1pt min.). @ -Chest x-ray negative for acute cardiopulmonary findings CT interpreted by me (1pt min.). @ -[CT soft tissue neck without acute abnormality, widely patent airway U/S interpreted by me (1pt. min.). @ -[None done What testing was considered but not performed or refused? (CT, X-rays, U/S, labs)? Why? @ -None What meds were considered but not given or refused? Why? @ -None Did you discuss the management of the patient with other professionals (professionals i.e. Dr., PA, TELEPHONE SURVEYOR, lab, RT, psych nurse, social media content specialist, manager massage department, teacher, retail loss prevention officer, porter sample case)? Give summary @ -No Was smoking cessation discussed for >3mins.? @ -No Was critical care preformed (if so, how long)? @ -No Were there social determinants of health that impacted care today? How? (Homelessness, low income, unemployed, alcoholism, drug addiction, transportation, low edu. Level, literacy, decrease access to med. care, prison, rehab)? @ -No Was there de-escalation of care discussed even if they declined (Discuss DNR or withdrawal of care, Hospice)? DNR status @ -No What co-morbidities impacted this encounter? (DM, HTN, Smoking, COPD, CAD, Cancer, CVA, ARF, Chemo, Hep., AIDS, mental health diagnosis, sleep apnea, morbid obesity)? @ -None Was patient admitted / discharged? Hospital course, mention meds given and route, prescriptions, significant lab abnormalities, going to OR and other pertinent info. @53-year-old female with a sensation that her throat was closing and persistent cough. Patient is otherwise well-appearing. Laboratory testing is unremarkable. EKG is sinus rhythm without ischemic changes. Chest x-ray is cl ear. CT soft tissue neck is negative. After albuterol, Atrovent, she is feeling significantly better. She has an albuterol inhaler at home. I do suspect this could be related to gastric reflux, she will be started on omeprazole. She will continue her follow-up with ENT. Undiagnosed new problem with uncertain prognosis? @ -No Drug Therapy requiring intensive monitoring for toxicity (Heparin, Nitro, Insulin, Cardizem)? @ -No Were any procedures done? @ -No Diagnosis/symptom? @ -Cough Acute, or Chronic, or Acute on Chronic? @ -[acute Uncomplicated (without systemic symptoms) or Complicated (systemic symptoms)? @ -Default Side effects of treatment? @ -No Exacerbation, Progression, or Severe Exacerbation? @ -No Poses a threat to life or bodily function? How? (Chest pain, USA, CA, pneumonia, PE, COPD, DKA, ARF, appy, cholecystitis, CVA, Diverticulitis, Homicidal, Suicidal, threat to staff... and all critical care pts) @ -low risk at this time - Lab Data Result diagrams: 11/06/23 21:51 11/06/23 21:50 Lab Results 11/06/23 11/06/23 11/06/23 Range/Units 21:50 21:50 21:50 WBC (3.8-10.6) k/uL RBC (3.80-5.40) m/uL Hgb (11.4-16.0) gm/dL Hct (34.0-46.0) % MCV (80.0-100.0) fL MCH (25.0-35.0) pg MCHC (31.0-37.0) g/dL RDW (11.5-15.5) % Plt Count (150-450) k/uL MPV Neutrophils % % Lymphocytes % % Monocytes % % Eosinophils % % Basophils % % Neutrophils # (1.3-7.7) k/uL Lymphocytes # (1.0-4.8) k/uL Monocytes # (0-1.0) k/uL Eosinophils # (0-0.7) k/uL Basophils # (0-0.2) k/uL PT 10.1 (10.0-12.5) sec INR 0.9 (<1.2) APTT 24.2 (22.0-30.0) sec Sodium 137 (137-145) mmol/L Potassium 4.7 (3.5-5.1) mmol/L Chloride 108 H (98-107) mmol/L Carbon Dioxide 20 L (22-30) mmol/L Anion Gap 9 mmol/L BUN 21 H (7-17) mg/dL Creatinine 1.02 (0.52-1.04) mg/dL Est GFR (CKD-EPI)AfAm 72 (>60 ml/min/1.73 sqM) Est GFR (CKD-EPI)NonAf 62 (>60 ml/min/1.73 sqM) Glucose 142 H (74-99) mg/dL Calcium 9.9 (8.4-10.2) mg/dL Magnesium 1.8 (1.6-2.3) mg/dL Total Bilirubin 0.3 (0.2-1.3) mg/dL AST 20 (14-36) U/L ALT 22 (4-34) U/L Alkaline Phosphatase 112 (38-126) U/L Troponin I <0.012 (0.000-0.034) ng/mL Total Protein 7.5 (6.3-8.2) g/dL Albumin 4.4 (3.5-5.0) g/dL 11/06/23 Range/Units 21:51 WBC 10.5 (3.8-10.6) k/uL RBC 4.30 (3.80-5.40) m/uL Hgb 13.4 (11.4-16.0) gm/dL Hct 38.2 (34.0-46.0) % MCV 89.0 (80.0-100.0) fL MCH 31.1 (25.0-35.0) pg MCHC 34.9 (31.0-37.0) g/dL RDW 12.8 (11.5-15.5) % Plt Count 278 (150-450) k/uL MPV 8.0 Neutrophils % 59 % Lymphocytes % 31 % Monocytes % 5 % Eosinophils % 3 % Basophils % 1 % Neutrophils # 6.2 (1.3-7.7) k/uL Lymphocytes # 3.3 (1.0-4.8) k/uL Monocytes # 0.5 (0-1.0) k/uL Eosinophils # 0.3 (0-0.7) k/uL Basophils # 0.1 (0-0.2) k/uL PT (10.0-12.5) sec INR (<1.2) APTT (22.0-30.0) sec Sodium (137-145) mmol/L Potassium (3.5-5.1) mmol/L Chloride (98-107) mmol/L Carbon Dioxide (22-30) mmol/L Anion Gap mmol/L BUN (7-17) mg/dL Creatinine (0.52-1.04) mg/dL Est GFR (CKD-EPI)AfAm (>60 ml/min/1.73 sqM) Est GFR (CKD-EPI)NonAf (>60 ml/min/1.73 sqM) Glucose (74-99) mg/dL Calcium (8.4-10.2) mg/dL Magnesium (1.6-2.3) mg/dL Total Bilirubin (0.2-1.3) mg/dL AST (14-36) U/L ALT (4-34) U/L Alkaline Phosphatase (38-126) U/L Troponin I (0.000-0.034) ng/mL Total Protein (6.3-8.2) g/dL Albumin (3.5-5.0) g/dL Disposition Clinical Impression: Cough Disposition: HOME SELF-CARE Condition: Good Instructions (If sedation given, give patient instructions): Chronic Cough (ED) Prescriptions: Omeprazole [PriLOSEC] 20 mg PO AC-BID 30 Days #60 cap Promethazine HCl/Codeine [Promethazine HCl/Codeine Syrup] 5 ml PO Q8HR PRN #120 ml PRN Reason: Cough Is patient prescribed a controlled substance at d/c from ED?: No Referrals: Tyler Sparks MD [Primary Care Provider] - 1-2 days Time of Disposition: 23:14
[2023-11-06 22:01] LABS: Basophils # (A) 0.1 k/uL (0-0.2); Basophils % (A) 1 %; Eosinophils # (A) 0.3 k/uL (0-0.7); Eosinophils % (A) 3 %; HCT 38.2 % (34.0-46.0); HGB 13.4 gm/dL (11.4-16.0); Lymphocytes # (A) 3.3 k/uL (1.0-4.8); Lymphocytes % (A) 31 %; MCH 31.1 pg (25.0-35.0); MCHC 34.9 g/dL (31.0-37.0); Monocytes # (A) 0.5 k/uL (0-1.0); Monocytes % (A) 5 %; Neutrophils # (A) 6.2 k/uL (1.3-7.7); Neutrophils % (A) 59 %; Platelet Count 278 k/uL (150-450); RDW 12.8 % (11.5-15.5); WBC 10.5 k/uL (3.8-10.6)
--- NOTE | 2023-11-06 22:04 | CT ---
EXAMINATION TYPE: CT soft tissue neck wo con DATE OF EXAM: 11/06/2023 COMPARISON: None HISTORY: throat pain/burning, coughing, possible fb CT DLP: 250.9 mGycm CONTRAST: Patient injected with 0 mL of Isovue 300. TECHNIQUE: Axial images at 3 mm thick sections. Reconstructed images in the coronal plane and sagitt al plane are reviewed. FINDINGS: Limited CT sections are obtained the lung apices. The lung apices appear clear. CT neck: The torus tubarius and fossa of Rosenmuller are normal. Grapple Skidder Operator spaces are normal. Ther e is opacification of the inferior right maxillary sinus. Anterior right ethmoid air cells are opacif ied. There is opacification of the right maxillary sinus. Scattered small lymph nodes are present. No enlarged lymphadenopathy is evident. Parotid glands appear normal and symmetrical. Submandibular glands, are normal. Parapharyngeal spac es are normal. No suspicious adenopathy is evident. The hypopharynx appears within normal limits. Vocal cord level appear symmetrical. Tracheobronchial tree appears clear. Lung windows within the fie ld of view are clear. No radiopaque foreign bodies are evident. Esophagus as visualized appears normal. No radiopaque foreign bodies. Esophagus within the field-of-v iew is evident. Epiglottis appears normal. Thyroid is poorly visualized. Osseous structures are normal. IMPRESSION: 1. No radiopaque foreign bodies. 2. Scattered small lymph nodes. No suspicious acute soft tissue neck abnormality. 3. Opacification right maxillary sinus extending into the ethmoid air cells and posterior inferior ri ght frontal sinus. Consider polyposis. Follow-up can be performed.
[2023-11-06 22:11] LABS: ALT 22 U/L (4-34); AST 20 U/L (14-36); African American GFR (CKD) 72 (>60 ml/min/1.73 sqM); Albumin 4.4 g/dL (3.5-5.0); Alkaline Phosphatase 112 U/L (38-126); Anion Gap 9 mmol/L; Blood Urea Nitrogen 21 mg/dL (7-17); Calcium 9.9 mg/dL (8.4-10.2); Carbon Dioxide 20 mmol/L (22-30); Chloride 108 mmol/L (98-107); Glucose 142 mg/dL (74-99); Magnesium 1.8 mg/dL (1.6-2.3); Non-African American GFR(CKD) 62 (>60 ml/min/1.73 sqM); Potassium 4.7 mmol/L (3.5-5.1); Sodium 137 mmol/L (137-145); Total Bilirubin 0.3 mg/dL (0.2-1.3); Total Protein 7.5 g/dL (6.3-8.2)
[2023-11-06 22:25] LABS: INR 0.9 (<1.2); Partial Thromboplastin Time 24.2 sec (22.0-30.0); Prothrombin Time 10.1 sec (10.0-12.5)
--- NOTE | 2023-11-06 22:59 | XR ---
EXAM: XR Chest, 2 Views CLINICAL HISTORY: ITS.REASON XR Reason: Chest Pain TECHNIQUE: Frontal and lateral views of the chest. COMPARISON: No relevant prior studies available. FINDINGS: Lungs: Unremarkable. No consolidation. Pleural space: Unremarkable. No pneumothorax. Heart: Unremarkable. No cardiomegaly. Mediastinum: Unremarkable. Normal mediastinal contour. Bones/joints: Unremarkable. No acute fracture. IMPRESSION: Normal chest x-rays.
[2023-11-06 23:38] VITALS: BP 122/77; PULSE 97; RESP 20
== END 2023-11-07 00:08 | disposition home or self-care (01) ==
LOC: EC 20:18
DX: R05.9 Cough, unspecified (principal); J32.9 Chronic sinusitis, unspecified; I10 Essential (primary) hypertension; E07.9 Disorder of thyroid, unspecified; E78.5 Hyperlipidemia, unspecified; Z87.891 Personal history of nicotine dependence; Z79.890 Hormone replacement therapy; J45.909 Unspecified asthma, uncomplicated; E11.9 Type 2 diabetes mellitus without complications; Z79.84 Long term (current) use of oral hypoglycemic drugs; Z79.899 Other long term (current) drug therapy; Z91.041 Radiographic dye allergy status; Z91.040 Latex allergy status; Z88.0 Allergy status to penicillin; Z88.1 Allergy status to other antibiotic agents
CPT/HCPCS: 36415; 94640; 93005; 80053; 83735; 84484; 85025; 85610; 85730; 71046; 70490; 99285; 96374; 96375; J2270; C9113

== ENCOUNTER → 2023-11-09 | Outpatient (CLI) | payer BC ==
--- NOTE | 2023-11-10 07:21 | US ---
EXAMINATION TYPE: US kidneys/renal and bladder DATE OF EXAM: 11/09/2023 COMPARISON: NONE CLINICAL INDICATION: Female, 53 years old with history of R10.2 PELVIC AND PERINEAL PAIN; pain EXAM MEASUREMENTS: Right Kidney: 10.2 x 4.9 x 4.0 cm Left Kidney: 12.1 x 4.6 x 4.7 cm Right Kidney: No hydronephrosis or masses seen Left Kidney: No hydronephrosis or masses seen Bladder: wnl Bilateral Jets seen: Yes Normal Post Void Residual: Yes 14.3 ml There is no evidence for hydronephrosis at this point in time. No nephrolithiasis is seen. No randa s are identified. The urinary bladder is anechoic. Bilateral ureteral jets are seen. IMPRESSION: No discrete abnormality seen.
== END | disposition home or self-care (01) ==
LOC: RADUSWWP 14:48
PROVIDERS: ATTEND Family Medicine
DX: R10.2 Pelvic and perineal pain (principal)
CPT/HCPCS: 76770

== ENCOUNTER → 2023-12-06 | Outpatient (CLI) | payer BC ==
--- NOTE | 2023-12-06 21:54 | FL ---
EXAMINATION TYPE: FL barium swallow DATE OF EXAM: 12/06/2023 COMPARISON: None HISTORY: Gastroesophageal reflux, esophageal spasms TECHNIQUE: A double air contrast UGI study is performed. FINDINGS: Fluoroscopy time: 17 seconds. Images: 228 Esophagus has a normal caliber and has normal contour to the gastroesophageal junction. Gastroesophag eal junction is normal caliber. Minimal presbyesophagus may be present. Portions of this exam. No foc al stenosis is evident. No reflux was identified. IMPRESSION: 1. No suspicious acute abnormality to account for patient's symptoms. 2. Minimal presbyesophagus
== END | disposition home or self-care (01) ==
LOC: RADUSWWP 09:28
PROVIDERS: ATTEND Otolaryngology
DX: K22.89 Other specified disease of esophagus (principal); K21.9 Gastro-esophageal reflux disease without esophagitis; K22.4 Dyskinesia of esophagus
CPT/HCPCS: 74220

== ENCOUNTER → 2024-01-11 | Day surgery (SDC) | payer BC, OTHER ==
[~2024-01-11] MED LIST changes: -LACTATED RINGERS 1,000 ML IV SCH; -ONDANSETRON 4 MG/2 ML VIAL IVP ONE; +PROPOFOL 10 MG/ML 20 ML VIAL IV ONE; -fentaNYL (PF) 50 MCG/ML 2 ML AMP IV PRN
[2024-01-11 07:24] VITALS: RESP 16; TEMP 97.3
[2024-01-11 07:27] LABS: Glucose,Whole Blood 180 mg/dL (70-110)
[2024-01-11] MEDS: LACTATED RINGERS 1,000 ML IV SCH (07:29)
--- NOTE | 2024-01-11 08:21 | P.PCN ---
Date of Procedure: 01/11/24 Procedure(s) Performed: BRIEF HISTORY: Patient is a 53-year-old, pleasant, White female scheduled for an upper endoscopy as a part of evaluation of chest pain/dysphagia and passive regurgitation for the last 3 months duration. She was started on omeprazole 20 mg daily and symptoms have slightly improved.. PROCEDURE PERFORMED: Esophagogastroduodenoscopy With biopsy. PREOPERATIVE DIAGNOSIS: Dysphagia/Chest pain for 3 months duration. IV sedation per anesthesia. PROCEDURE: After informed consent was obtained, the patient was brought into the endoscopy unit. IV sedation was administered by Anesthesia under continuous monitoring. Initially the Olympus GIF-140 video endoscope was inserted into the mouth. Esophagus intubated without any difficulty. It was gradually advanced into the stomach and duodenum and carefully examined. The bulb and the second part of the duodenum appeared normal. The scope at this time was withdrawn to the stomach, adequately insufflated with air, and upon careful examination, mucosa of the antrum,had mild gastritis and biopsies were done from this area. Mucosa of the body, cardia and the fundus appeared normal. The scope was then withdrawn into the esophagus.Small hiatal hernia noted. The GE junction was located at 39 cm from the incisors. The esophagus appeared normal. In the midesophagus there was a 1 cm superficial ulceration at 28 cm from the incisors and biopsies were done from this area. The patient tolerated the procedure well. IMPRESSION: 1.1 cm superficial mid esophageal ulcer at 28 cm from the incisors status post biopsies. 2.Small hiatal hernia 3.Mild antral gastritis. RECOMMENDATIONS: The findings of this examination were discussed with the patient as well as a family. She was advised to follow with the biopsy results.Continue with omeprazole 20 mg daily and follow antireflux measures..
[2024-01-11 08:43] VITALS: BP 122/82; PULSE 77
== END ==
LOC: ORWHC2ENDO 06:54
PROVIDERS: ATTEND Internal Medicine Gastroenterology
DX: K29.50 Unspecified chronic gastritis without bleeding (principal); K44.9 Diaphragmatic hernia without obstruction or gangrene; K22.10 Ulcer of esophagus without bleeding; Z79.899 Other long term (current) drug therapy
CPT/HCPCS: 88305; 88312; 43239; J2704

== ENCOUNTER → 2024-01-19 | Outpatient (CLI) | payer BC ==
--- NOTE | 2024-01-20 12:32 | US ---
EXAMINATION TYPE: US thyroid st tissue head/neck DATE OF EXAM: 01/19/2024 COMPARISON: NONE CLINICAL INDICATION: Female, 53 years old with history of E04.1 NONTOXIC SINGLE THYROID NODULE; f/u e xam GLAND SIZE: Right Lobe: 3.2 x 0.8 x 1.5 cm Overall Parenchyma: heterogeneous Left Lobe: 2.2 x 0.7 x 0.8 cm Overall Parenchyma: heterogeneous Isthmus Thickness: 0.3 cm NODULES RIGHT: # of nodules measured on right: 1 1. 0.7 X 0.7 x 0.6 cm, mid , cystic or almost completely cystic, anechoic nodule, which is wider th an tall, with smooth margins, without echogenic foci. TR1 Prior size: 1.3 x 0.8 x 0.9 cm LEFT: # of nodules measured on left: 0 ISTHMUS: # of nodules measured in the isthmus: 0 Bilateral neck scanned, no evidence of lymphadenopathy. IMPRESSION: 1. The thyroid tissue is heterogeneous which can be associated with thyroiditis. 2. Interval reduction in size of a right thyroid nodule which now measures subcentimeter in size. 2017 ACR TI-RADS LEVEL: TR-RADS 1 - BENIGN: No FNA *Highest TI-RADS level nodule reported
== END | disposition home or self-care (01) ==
LOC: RADUSWWP 14:37
PROVIDERS: ATTEND Family Medicine
DX: E04.1 Nontoxic single thyroid nodule (principal); E06.9 Thyroiditis, unspecified
CPT/HCPCS: 76536

== ENCOUNTER 2024-02-15 05:29 | Emergency (ER) | payer BC, OTHER ==
--- NOTE | 2024-02-15 05:48 | ED ---
Nausea/Vomiting/Diarrhea HPI - General Source: patient, RN notes reviewed, old records reviewed Mode of arrival: ambulatory Limitations: no limitations - History of Present Illness MD complaint: nausea, vomiting, abdominal pain, other (Chest pain back pain right shoulder pain) -: hour(s) Associated Abdominal Pain: Yes Location: epigastric Radiation: none Severity: moderate Severity scale (1-10): 4 Consistency: intermittent Improves with: none Worsens with: none Associated Symptoms: loss of appetite, nausea/vomiting, weakness <Mikel Zurita - Last Filed: 02/15/24 05:47> <Agustin Mathews - Last Filed: 02/15/24 11:52> - General Chief complaint: Nausea/Vomiting/Diarrhea Stated complaint: Chest Pain, Nausea Time Seen by Provider: 02/15/24 05:45 - History of Present Illness Initial comments: This is a 53-year-old female to the ER for evaluation today. Today she presents for evaluation of right-sided shoulder pain back pain chest pain anterior chest pain with nausea vomiting persistent nausea vomiting here in the ER (Mikel Zurita) 53-year-old female presents emergency department complaint of right shoulder pain, back pain. Patient states that she has been dealing with this for a while it is worse with certain movements, deep inspiration. Patient states that it seemed to worsen in which she had some episodes of vomiting. Patient states that she has upper abdominal pain. She has had a prior cholecystectomy. She denies any fevers or chills denies of any prior cardiac disease not prior lung disease. Patient states she did have Achilles injury of her leg and is jerod rned about possible clot. (Agustin Mathews) - Related Data Home Medications Medication Instructions Recorded Confirmed Atorvastatin [Lipitor] 20 mg PO DAILY 09/26/21 02/15/24 Levothyroxine Sodium [Tirosint] 150 mcg PO DAILY 09/26/21 02/15/24 Linaclotide [Linzess] 290 mg PO DAILY PRN 02/01/23 02/15/24 Semaglutide [Ozempic] 2 mg SQ MO 02/01/23 02/15/24 Montelukast [Singulair] 10 mg PO HS 01/07/24 02/15/24 Albuterol Inhaler [Ventolin Hfa 1 - 2 puff INHALATION RT-Q6H PRN 02/15/24 02/15/24 Inhaler] Albuterol Nebulized [Ventolin 2.5 mg INHALATION RT-Q6H PRN 02/15/24 02/15/24 Nebulized] Fluticasone/Umeclidin/Vilanter 1 puff INHALATION RT-DAILY 02/15/24 02/15/24 [Trelegy Ellipta 200-62.5-25] Hyoscyamine Sulfate [Hyoscyamine 0.125 mg SL Q3H PRN 02/15/24 02/15/24 Sulfate SL] Ibuprofen [Motrin] 800 mg PO BID PRN 02/15/24 02/15/24 Pantoprazole [Protonix] 40 mg PO DAILY 02/15/24 02/15/24 traMADol HCL 50 mg PO Q6H PRN 02/15/24 02/15/24 Previous Rx's Medication Instructions Recorded Cyclobenzaprine [Flexeril] 10 mg PO TID PRN #15 tab 02/15/24 Ibuprofen [Motrin] 600 mg PO Q8HR PRN #20 tab 02/15/24 Allergies Allergy/AdvReac Type Severity Reaction Status Date / Time Iodinated Contrast Media Allergy Severe Anaphylaxis Verified 02/15/24 09:55 [Iodinated Contrast Media - IV Dye] latex Allergy Severe Swelling Verified 02/15/24 09:55 of mouth and throat nifedipine [From Procardia] Allergy Unknown Rash/Hives Verified 02/15/24 09:55 Penicillins Allergy Unknown Rash/Hives Verified 02/15/24 09:55 cephalexin monohydrate AdvReac Unknown CAUSED Verified 02/15/24 09:55 [From Keflex] "HOLES" ON HER TONGUE Review of Systems ROS Other: All systems not noted in ROS Statement are negative. <Mikel Zurita - Last Filed: 02/15/24 05:47> ROS Other: All systems not noted in ROS Statement are negative. <Agustin Mathews - Last Filed: 02/15/24 11:52> ROS Statement: Those systems with pertinent positive or pertinent negative responses have been documented in the HPI. Past Medical History Past Medical History: Asthma, Diabetes Mellitus, Hyperlipidemia, Thyroid Disorder Additional Past Medical History / Comment(s): blood in stool, pain rt side of abdomen, hx bowel obstruction, diverticulitis, History of Any Multi-Drug Resistant Organisms: None Reported Past Surgical History: Appendectomy, Bladder Surgery, Breast Surgery, Cholecystectomy, Hysterectomy, Orthopedic Surgery, Tonsillectomy Additional Past Surgical History / Comment(s): BREAST CYSTS. bowel surgery for obstruction, Past Anesthesia/Blood Transfusion Reactions: Postoperative Nausea & Vomiting (PONV) Additional Past Anesthesia/Blood Transfusion Reaction / Comment(s): PT ADOPTED. Past Psychological History: No Psychological Hx Reported Smoking Status: Former smoker - Past Family History Father Family Medical History: Unable to Obtain Additional Family Medical History / Comment(s): PT ADOPTED BUT STATES UNCLE HAD COLON CA AND AUNTS WITH BREAST CA. <Mikel Zurita - Last Filed: 02/15/24 05:47> General Exam Limitations: no limitations <Mikel Zurita - Last Filed: 02/15/24 05:47> General appearance: alert, in no apparent distress Head exam: Present: atraumatic, normocephalic, normal inspection ENT exam: Present: normal exam, normal oropharynx, mucous membranes moist Neck exam: Present: normal inspection, full ROM. Absent: tenderness, meningismus, lymphadenopathy Respiratory exam: Present: normal lung sounds bilaterally, chest wall tenderness (Right scapular upper chest on the posterior aspect). Absent: respiratory distress, wheezes, rales, rhonchi, stridor Cardiovascular Exam: Present: normal rhythm, tachycardia, normal heart sounds. Absent: systolic murmur, diastolic murmur, rubs, gallop, clicks GI/Abdominal exam: Present: soft, normal bowel sounds. Absent: distended, tenderness, guarding, rebound, rigid Extremities exam: Present: normal inspection, full ROM, normal capillary refill. Absent: tenderness, pedal edema, joint swelling, calf tenderness Neurological exam: Present: alert, oriented X3, CN II-XII intact <Agustin Mathews - Last Filed: 02/15/24 11:52> Course Vital Signs 02/15/24 02/15/24 02/15/24 05:34 07:15 07:43 Temperature 97.9 F Pulse Rate 120 H 90 76 Respiratory 16 18 20 Rate Blood Pressure 126/80 140/91 141/97 O2 Sat by Pulse 99 99 98 Oximetry 02/15/24 02/15/24 09:06 10:15 Temperature 97.7 F Pulse Rate 107 H 94 Respiratory 18 18 Rate Blood Pressure 155/104 133/78 O2 Sat by Pulse 99 100 Oximetry Medical Decision Making - Lab Data Result diagrams: 02/15/24 05:50 02/15/24 05:50 <Agustin Mathews - Last Filed: 02/15/24 11:52> - Medical Decision Making Was pt. sent in by a medical professional or institution (, PA, [employer], urgent care, hospital, or jail...) When possible be specific @ -No Did you speak to anyone other than the patient for history (EMS, parent, family, police, friend...)? What history was obtained from this source @ -No Did you review nursing and triage notes (agree or disagree)? Why? @ -I reviewed and agree with nursing and triage notes Were old charts reviewed (outside hosp., previous admission, EMS record, old EKG, old radiological studies, urgent care reports/EKG's, jail records)? Report findings @ -No old charts were reviewed Differential Diagnosis (chest pain, altered mental status, abdominal pain women, abdominal pain men, vaginal bleeding, weakness, fever, dyspnea, syncope, headache, dizziness, GI bleed, back pain, seizure, CVA, palpatations, mental health, musculoskeletal)? @ -Differential Chest Pain: Stable Angina, Unstable Angina, STEMI, NSTEMI Aortic Dissection, Pneumothorax, Musculoskeletal, Esophageal Spasm GERD, Cholecystitis, Pancreatitis, Zoster, this is not meant to be an all-inclusive list. EKG interpreted by me (3pts min.). @ -As above X-rays interpreted by me (1pt min.). @ -Chest ray shows no acute cardiopulmonary process. CT interpreted by me (1pt min.). @ -CT chest angio negative for acute PE there is some subpleural inflammatory changes U/S interpreted by me (1pt. min.). @ -Ultrasound bilateral lower extremities negative for acute DVT What testing was considered but not performed or refused? (CT, X-rays, U/S, labs)? Why? @ -None What meds were considered but not given or refused? Why? @ -None Did you discuss the management of the patient with other professionals (antony harman i.e. , PA, [employer], lab, RT, psych nurse, social media director, music grapher, teacher, commercial loan collection officer, case work aide)? Give summary @ -No Was smoking cessation discussed for >3mins.? @ -No Was critical care preformed (if so, how long)? @ -No Were there social determinants of health that impacted care today? How? (Homelessness, low income, unemployed, alcoholism, drug addiction, transportation, low edu. Level, literacy, decrease access to med. care, [place] [facility], rehab)? @ -No Was there de-escalation of care discussed even if they declined (Discuss DNR or withdrawal of care, Hospice)? DNR status @ -No What co-morbidities impacted this encounter? (DM, HTN, Smoking, COPD, CAD, Cancer, CVA, ARF, Chemo, Hep., AIDS, mental health diagnosis, sleep apnea, morbid obesity)? @ -None Was patient admitted / discharged? Hospital course, mention meds given and route, prescriptions, significant lab abnormalities, going to OR and other pertinent info. @ -Discharge patient had thorough workup including labs, CT, ultrasound she did have an significant elevated D-dimer without evidence of clot. Her symptoms are improved and reproducible with palpation of the right trapezius and scapular region. She has no abdominal tenderness vitals have improved, stable will be discharged with close follow-up and return plans discussed. Patient agrees with plan. Undiagnosed new problem with uncertain prognosis? @ -No Drug Therapy requiring intensive monitoring for toxicity (Heparin, Nitro, Insulin, Cardizem)? @ -No Were any procedures done? @ -No Diagnosis/symptom? @ -Right trapezius, scapular spasm, Acute, or Chronic, or Acute on Chronic? @ -Acute Uncomplicated (without systemic symptoms) or Complicated (systemic symptoms)? @ -uncomplicated Side effects of treatment? @ -No Exacerbation, Progression, or Severe Exacerbation? @ -No Poses a threat to life or bodily function? How? (Chest pain, [place], [place], pneumonia, PE, COPD, DKA, ARF, appy, cholecystitis, CVA, Diverticulitis, Homicidal, Suicidal, threat to staff... and all critical care pts) @ -No (Agustin Mathews) - Lab Data Lab Results 02/15/24 02/15/24 02/15/24 Range/Units 05:50 05:50 05:50 WBC 7.0 (3.8-10.6) k/uL RBC 4.81 (3.80-5.40) m/uL Hgb 14.2 (11.4-16.0) gm/dL Hct 43.7 (34.0-46.0) % MCV 90.7 (80.0-100.0) fL MCH 29.5 (25.0-35.0) pg MCHC 32.5 (31.0-37.0) g/dL RDW 13.0 (11.5-15.5) % Plt Count 308 (150-450) k/uL MPV 8.2 Neutrophils % 64 % Lymphocytes % 27 % Monocytes % 5 % Eosinophils % 3 % Basophils % 1 % Neutrophils # 4.4 (1.3-7.7) k/uL Lymphocytes # 1.9 (1.0-4.8) k/uL Monocytes # 0.3 (0-1.0) k/uL Eosinophils # 0.2 (0-0.7) k/uL Basophils # 0.1 (0-0.2) k/uL PT 10.2 (10.0-12.5) sec INR 0.9 (<1.2) APTT 23.8 (22.0-30.0) sec D-Dimer (<0.60) mg/L FEU Sodium 137 (137-145) mmol/L Potassium 4.8 (3.5-5.1) mmol/L Chloride 107 (98-107) mmol/L Carbon Dioxide 21 L (22-30) mmol/L Anion Gap 9 mmol/L BUN 18 H (7-17) mg/dL Creatinine 0.94 (0.52-1.04) mg/dL Est GFR (CKD-EPI)AfAm 79 (>60 ml/min/1.73 sqM) Est GFR (CKD-EPI)NonAf 69 (>60 ml/min/1.73 sqM) Glucose 187 H (74-99) mg/dL Plasma Lactic Acid Donovan (0.7-2.0) mmol/L Calcium 9.8 (8.4-10.2) mg/dL Magnesium 1.9 (1.6-2.3) mg/dL Total Bilirubin 0.7 (0.2-1.3) mg/dL AST 37 H (14-36) U/L ALT 39 H (4-34) U/L Alkaline Phosphatase 104 (38-126) U/L Troponin I (0.000-0.034) ng/mL Total Protein 7.6 (6.3-8.2) g/dL Albumin 4.4 (3.5-5.0) g/dL 02/15/24 02/15/24 02/15/24 Range/Units 05:50 05:50 05:50 WBC (3.8-10.6) k/uL RBC (3.80-5.40) m/uL Hgb (11.4-16.0) gm/dL Hct (34.0-46.0) % MCV (80.0-100.0) fL MCH (25.0-35.0) pg MCHC (31.0-37.0) g/dL RDW (11.5-15.5) % Plt Count (150-450) k/uL MPV Neutrophils % % Lymphocytes % % Monocytes % % Eosinophils % % Basophils % % Neutrophils # (1.3-7.7) k/uL Lymphocytes # (1.0-4.8) k/uL Monocytes # (0-1.0) k/uL Eosinophils # (0-0.7) k/uL Basophils # (0-0.2) k/uL PT (10.0-12.5) sec INR (<1.2) APTT (22.0-30.0) sec D-Dimer 14.48 H (<0.60) mg/L FEU Sodium (137-145) mmol/L Potassium (3.5-5.1) mmol/L Chloride (98-107) mmol/L Carbon Dioxide (22-30) mmol/L Anion Gap mmol/L BUN (7-17) mg/dL Creatinine (0.52-1.04) mg/dL Est GFR (CKD-EPI)AfAm (>60 ml/min/1.73 sqM) Est GFR (CKD-EPI)NonAf (>60 ml/min/1.73 sqM) Glucose (74-99) mg/dL Plasma Lactic Acid Donovan 1.3 (0.7-2.0) mmol/L Calcium (8.4-10.2) mg/dL Magnesium (1.6-2.3) mg/dL Total Bilirubin (0.2-1.3) mg/dL AST (14-36) U/L ALT (4-34) U/L Alkaline Phosphatase (38-126) U/L Troponin I <0.012 (0.000-0.034) ng/mL Total Protein (6.3-8.2) g/dL Albumin (3.5-5.0) g/dL Disposition <Mikel Zurita - Last Filed: 02/15/24 05:47> Is patient prescribed a controlled substance at d/c from ED?: No Time of Disposition: 11:51 <Agustin Mathews - Last Filed: 02/15/24 11:52> Clinical Impression: Right shoulder pain, Trapezius muscle spasm, Pleurisy Disposition: HOME SELF-CARE Condition: Stable Instructions (If sedation given, give patient instructions): Shoulder Pain (ED), Muscle Spasm (ED), Pleurisy (ED) Additional Instructions: Please return to the Emergency Department if symptoms worsen or any other concerns. Prescriptions: Cyclobenzaprine [Flexeril] 10 mg PO TID PRN #15 tab PRN Reason: Muscle Spasm Ibuprofen [Motrin] 600 mg PO Q8HR PRN #20 tab PRN Reason: Pain Referrals: Tyler Sparks MD [Primary Care Provider] - 1-2 days
--- NOTE | 2024-02-15 06:19 | XR ---
EXAMINATION TYPE: XR chest 2V DATE OF EXAM: 02/15/2024 COMPARISON: Chest x-ray November 06, 2023 HISTORY: Chest pain TECHNIQUE: Frontal and lateral views of the chest are obtained. FINDINGS: There is no suspicious new focal air space opacity, pleural effusion, or pneumothorax seen . The cardiac silhouette size remains within normal limits. The osseous structures are intact. Cho lecystectomy clips are redemonstrated. IMPRESSION: No acute process. No significant change from prior.
[2024-02-15 06:39] LABS: Basophils # (A) 0.1 k/uL (0-0.2); Basophils % (A) 1 %; Eosinophils # (A) 0.2 k/uL (0-0.7); Eosinophils % (A) 3 %; HCT 43.7 % (34.0-46.0); HGB 14.2 gm/dL (11.4-16.0); Lymphocytes # (A) 1.9 k/uL (1.0-4.8); Lymphocytes % (A) 27 %; MCH 29.5 pg (25.0-35.0); MCHC 32.5 g/dL (31.0-37.0); MCV 90.7 fL (80.0-100.0); Mean Platelet Volume 8.2; Monocytes # (A) 0.3 k/uL (0-1.0); Monocytes % (A) 5 %; Neutrophils # (A) 4.4 k/uL (1.3-7.7); Neutrophils % (A) 64 %; Platelet Count 308 k/uL (150-450); RBC 4.81 m/uL (3.80-5.40)
[2024-02-15 06:59] LABS: ALT 39 U/L (4-34); AST 37 U/L (14-36); African American GFR (CKD) 79 (>60 ml/min/1.73 sqM); Albumin 4.4 g/dL (3.5-5.0); Alkaline Phosphatase 104 U/L (38-126); Anion Gap 9 mmol/L; Blood Urea Nitrogen 18 mg/dL (7-17); Calcium 9.8 mg/dL (8.4-10.2); Carbon Dioxide 21 mmol/L (22-30); Chloride 107 mmol/L (98-107); Glucose 187 mg/dL (74-99); Magnesium 1.9 mg/dL (1.6-2.3); Non-African American GFR(CKD) 69 (>60 ml/min/1.73 sqM); Potassium 4.8 mmol/L (3.5-5.1); Sodium 137 mmol/L (137-145); Total Bilirubin 0.7 mg/dL (0.2-1.3); Total Protein 7.6 g/dL (6.3-8.2)
[2024-02-15 07:00] LABS: INR 0.9 (<1.2); Partial Thromboplastin Time 23.8 sec (22.0-30.0); Prothrombin Time 10.2 sec (10.0-12.5)
[2024-02-15] MEDS: SODIUM CHLORIDE 0.9% 2,000 ML IV ONE (07:30)
[2024-02-15] MEDS: KETOROLAC 15 MG/ML 1 ML VIAL IVP STA (07:31)
[2024-02-15] MEDS: ONDANSETRON 4 MG/2 ML VIAL IVP STA (07:31)
[2024-02-15] MEDS: ORPHENADRINE 30 MG/ML 2 ML VIAL IVP STA (07:32)
[2024-02-15] MEDS: diphenhydrAMINE 50 MG/ML 1 ML VIAL IVP STA ×2 (07:47→08:59)
[2024-02-15] MEDS: HYDROmorphone 0.5 MG/0.5 ML SYRINGE IVP STA (08:58)
[2024-02-15] MEDS: FAMOTIDINE 20 MG/2 ML VIAL IV STA (08:58)
[2024-02-15] MEDS: methylPREDNISolone SOD SUCCI 125 MG/2 ML VIAL IV STA (08:59)
[2024-02-15 09:49] VITALS: RESP 18
[2024-02-15 10:38] VITALS: TEMP 97.7
--- NOTE | 2024-02-15 10:38 | CT ---
EXAMINATION TYPE: CT chest angio for PE DATE OF EXAM: 02/15/2024 COMPARISON: Radiograph same day HISTORY: 53 year-old female shortness of breath, chest pain, r/o PE TECHNIQUE: Contiguous axial scanning of the chest performed with IV Contrast, patient injected with 7 0 mL of Isovue 370. Coronal and sagittal MIP reconstructions performed. CT DLP: 283.1 mGycm Automated exposure control for dose reduction was used. FINDINGS: The heart is upper limits of normal in size without pericardial effusion. No flattening of the interv entricular septum reflux of contrast into the hepatic veins. Aorta normal caliber with bovine configuration to the aortic arch. No thoracic lymphadenopathy by CT size criteria. While there is satisfactory opacification of the pulmonary system, there is some limitation due to br eathing motion. No definite pulmonary embolus. There is mild diffuse bronchial wall thickening. Scattered mild emphysematous change. Some minimal st chikis subpleural scarring or atelectasis upper and lower lungs. Visualized upper abdomen shows cholecystectomy clips. 1 cm ring-enhancing lesion within the spleen, p robably a small hemangioma. Bones: No osseous destructive process. IMPRESSION: 1. SOME BREATHING MOTION ARTIFACT. NO DEFINITE PULMONARY EMBOLUS. 2. COPD WITH MINIMAL EMPHYSEMA. BRONCHIAL WALL THICKENING COULD REFLECT BRONCHITIS OR ASTHMA.
--- NOTE | 2024-02-15 11:35 | US ---
EXAMINATION TYPE: US venous doppler duplex LE BI DATE OF EXAM: 02/15/2024 11:24 AM COMPARISON: 02/06/2023 CLINICAL INDICATION: Female, 53 years old with history of pain, d-dimer 14; pain injury to right leg. Elevated D dimer SIDE PERFORMED: Bilateral TECHNIQUE: The lower extremity deep venous system is examined utilizing real time linear array sonog sara with graded compression, doppler sonography and color-flow sonography. VESSELS IMAGED: Common Femoral Vein Deep Femoral Vein Greater Saphenous Vein * Femoral Vein Popliteal Vein Small Saphenous Vein * Proximal Calf Veins (* superficial vessels) Right Leg: Negative for DVT Left Leg: Negative for DVT IMPRESSION: Grayscale, color doppler, spectral doppler imaging performed of the deep veins of the lo wer extremities. There is normal flow, compressibility, vascular waveforms.
[2024-02-15] MEDS: ACET/COD 300 MG/30 MG STARTER PACK 6 TAB BTL PO STA (11:56)
[2024-02-15 12:11] VITALS: BP 120/75; PULSE 88
== END 2024-02-15 12:14 | disposition home or self-care (01) ==
LOC: EC 05:29
DX: R09.1 Pleurisy (principal); M62.838 Other muscle spasm; M25.511 Pain in right shoulder; R79.1 Abnormal coagulation profile; R00.0 Tachycardia, unspecified; Z88.0 Allergy status to penicillin; Z88.1 Allergy status to other antibiotic agents; Z88.8 Allergy status to other drugs, medicaments and biological substances; Z91.041 Radiographic dye allergy status; Z91.040 Latex allergy status; Z87.891 Personal history of nicotine dependence
CPT/HCPCS: 36415; 93005; 85379; 80053; 83605; 83735; 84484; 85025; 85610; 85730; 71046; 93970; 71275; 99285; 96374; 96375 ×6; 96361 ×3; J1200; J2360; J2405; J3490; J1885; J1170; Q9967; J2919

== ENCOUNTER 2024-05-17 18:30 | Emergency (ER) | payer BC ==
[2024-05-17] MEDS ORDERED: SODIUM CHLORIDE 0.9% 500 ML BAG ONE (19:15)
[2024-05-17] MEDS ORDERED: HYDROmorphone 0.5 MG/0.5 ML SYRINGE ONE ×2 (19:46→22:06)
[2024-05-17] MEDS ORDERED: ONDANSETRON 4 MG/2 ML VIAL ONE ×2 (19:46→22:07)
[2024-05-18] MEDS ORDERED: ACET/COD 300 MG/30 MG STARTER PACK 6 TAB BTL PO ONE (01:36)
--- NOTE | 2024-06-19 09:56 | CT ---
EXAM: CT Abdomen and Pelvis Without Intravenous Contrast CLINICAL HISTORY: RUQ pain, N/V TECHNIQUE: Axial computed tomography images of the abdomen and pelvis without intravenous contrast. CTDI is 10 mGy and DLP is 622.9 mGy-cm. This CT exam was performed using one or more of the following dose reduction techniques: automated exposure control, adjustment of the mA and/or kV according to patient size, and/or use of iterative reconstruction technique. COMPARISON: No relevant prior studies available. FINDINGS: LUNG BASES & HEART: The included portions of the lungs and heart are grossly unremarkable. LIVER: Within normal limits. GALLBLADDER: Within normal limits. SPLEEN: Within normal limits. PANCREAS: Within normal limits. ADRENAL GLANDS: Within normal limits. KIDNEYS:No nephrolithiasis or obstructive uropathy. No hydronephrosis. URINARY BLADDER: Within normal limits. GASTROINTESTINAL: Within normal limits. APPENDIX:Appendectomy. VASCULATURE: Within normal limits. LYMPHADENOPATHY: There are no pathologically enlarged lymph nodes. PELVIC ORGANS: Within normal limits. MUSCULOSKELETAL: Within normal limits. IMPRESSION: No nephrolithiasis or obstructive uropathy. No hydronephrosis. Radiologist: Everardo Fish MD Electronically Signed: 05/18/24 01:03 Study ready at 23:42 and initial results transmitted at 01:03 Results also transmitted to Film Room, Film Room @ [phone] (Fax) [email or web address]
== END 2024-05-18 01:00 | disposition home or self-care (01) ==
LOC: EC 18:30
CPT/HCPCS: 74176; 80053; 81003; 82150; 83605; 83735; 85027; 99284

== ENCOUNTER → 2025-01-18 | Outpatient (CLI) | payer BC ==
[2025-01-18 15:12] LABS: Basophils # (A) 0.07 X 10*3/uL (0.00-0.10); Basophils % (A) 1.1 %; Eosinophils # (A) 0.14 X 10*3/uL (0.04-0.35); Eosinophils % (A) 2.1 %; HCT 37.9 % (37.2-46.3); HGB 12.7 g/dL (12.0-15.0); Lymphocytes # (A) 2.24 X 10*3/uL (0.90-5.00); Lymphocytes % (A) 33.9 %; MCH 29.3 pg (27.0-32.0); MCHC 33.5 g/dL (32.0-37.0); MCV 87.3 FL (80.0-97.0); Mean Platelet Volume 10.4 FL (9.5-12.2); Monocytes # (A) 0.54 X 10*3/uL (0.20-1.00); Monocytes % (A) 8.2 %; NRBC Per 100 WBC 0 X 10*3/uL (0.00-0.01); Neutrophils # (A) 3.59 X 10*3/uL (1.80-7.70); Neutrophils % (A) 54.4 %; Platelet Count 305 X 10*3/uL (140-440); RBC 4.34 X 10*6/uL (4.10-5.20); RDW 13.4 % (11.5-14.5)
[2025-01-18 15:38] LABS: ALT 38 U/L (8-44); AST 26 U/L (13-35); Albumin 4.3 g/dL (3.8-4.9); Albumin/Globulin Ratio 1.54 Ratio (1.60-3.17); Alkaline Phosphatase 117 U/L (41-126); BUN/Creat Ratio 30.14 Ratio (12.00-20.00); Blood Urea Nitrogen 21.1 mg/dL (9.0-27.0); Calcium 9.9 mg/dL (8.7-10.3); Carbon Dioxide 23.5 mmol/L (21.6-31.8); Chloride 107 mmol/L (96-109); Chol/HDL Ratio 3.75 Ratio; Creatine Kinase 33 U/L (26-186); Globulin 2.8 g/dL (1.6-3.3); Glucose 127 mg/dL (70-110); LDL Cholesterol,Calculated 111.9 mg/dL (0.0-131.0); Potassium 4.7 mmol/L (3.5-5.5); Sodium 140 mmol/L (135-145); T4, Free (Free Thyroxine) 2.13 ng/dL (0.80-1.80); Total Bilirubin 0.2 mg/dL (0.3-1.2); Total Protein 7.1 g/dL (6.2-8.2)
== END | disposition home or self-care (01) ==
LOC: LABWHC1 08:31
PROVIDERS: ATTEND Family Medicine
DX: E78.5 Hyperlipidemia, unspecified (principal); E03.9 Hypothyroidism, unspecified
CPT/HCPCS: 36415; 80053; 80061; 82550; 84439; 84443; 84481; 85025